=== PATIENT | female | born 1945 | race African-American/Black ===

== ENCOUNTER 2016-08-11 14:49 | Inpatient (IN) | payer MEDICARE, MEDICAID ==
[~2016-08-11] VITALS: Ht 157.5 cm; Wt 87.5 kg
[2016-08-11] MEDS ORDERED: TRAV2.5D OP (15:20)
[2016-08-11] MEDS ORDERED: SAXA5TAB PO (15:20)
[2016-08-11] MEDS ORDERED: AMLODIPINE PO (15:20)
[2016-08-11] MEDS ORDERED: SIMVASTATIN (15:20)
[2016-08-11] MEDS ORDERED: CLONIDINE PATCH (15:20)
[2016-08-11] MEDS ORDERED: MICARDIS (15:20)
[2016-08-11] MEDS ORDERED: GLYB5TAB7 PO (15:20)
[2016-08-11] MEDS ORDERED: ASPIRIN 81MG TABLET PO STA (17:56)
[2016-08-11 18:16] LABS: EOSINOPHILS % 6.1 % (0.0-5.0); HEMATOCRIT. 32.5 % (36.0-48.0); HEMOGLOBIN. 10.4 g/dL (12.0-16.0); LYMPHOCYTES % 23.4 % (20.0-50.0); MEAN CORPUSCULAR HEMOGLOBIN 30.1 pg (28.0-32.0); MEAN CORPUSCULAR HGB CONC 32.1 g/dL (31.0-37.0); MEAN PLATELET VOLUME 8.3 fl (7.4-10.4); MONOCYTES % 11.3 % (2.0-8.0); NEUTROPHILS % 58.2 % (40.0-76.0); PLATELET 215 x1000/uL (130-400); RED BLOOD CELL COUNT 3.46 mill/uL (4.2-5.4); RED CELL DISTRIBUTION WIDTH 15.5 % (11.6-14.6); WHITE BLOOD COUNT 7.6 x1000/uL (4.5-11.0)
[2016-08-11 18:26] LABS: PARTIAL THROMBOPLASTIN TIME 22.8 sec (24.0-34.0); PROTHROMBIN TIME 10.5 sec
[2016-08-11 19:35] LABS: CLARITY URINE CLEAR (CLEAR); COLOR URINE YELLOW (YELLOW); GLUCOSE URINE NEGATIVE (NEGATIVE); KETONES URINE NEGATIVE (NEGATIVE); LEUKOCYTE ESTERASE URINE NEGATIVE (NEGATIVE); NITRITE URINE NEGATIVE (NEGATIVE); OCCULT BLOOD URINE TRACE (NEGATIVE); PROTEIN URINE 3+ (NEGATIVE); SPECIFIC GRAVITY URINE 1.015 (1.005-1.030); UROBILINOGEN URINE 0.2 E.U./dL (0.2-1.0)
[2016-08-11 19:37] LABS: BACTERIA URINE NONE SEEN; CALCIUM PHOSPHATE CRYSTALS UR NONE SEEN /lpf; RBC URINE 0-2 /hpf (0-2); SQUAMOUS EPITHELIAL CELL URINE NONE SEEN /lpf (RARE/1+); WAXY CASTS URINE NONE SEEN /lpf; WBC URINE 0-2 /hpf (0-2); YEAST URINE NONE SEEN
[2016-08-11 20:03] LABS: ALANINE AMINOTRANSFERASE 24 IU/L (13-61); ALBUMIN 3.1 g/dL (3.4-5.0); ANION GAP 11; CALCIUM 8.7 mg/dL (8.5-10.1); CARBON DIOXIDE 27 mEq/L (21-32); CHLORIDE 110 mEq/L (98-107); INDEX HEMOLYSI 1 (1-3); INDEX ICTERIC 1 (1-4); INDEX LIPEMIC 1 (1-3); NT PRO B-TYPE NATRIURETIC PEP 110 pg/mL (5-125); TROPONIN I < 0.02 ng/mL (0.00-0.04); UREA NITROGEN BLOOD 30 mg/dL (7-21); eGFR 39 mL/min (>60)
[2016-08-12] VITALS (7 sets, daily range): BP systolic 129–161; BP diastolic 77–89
[2016-08-12] MEDS ORDERED: TELM1TAB11 PO (01:42)
[2016-08-12] MEDS ORDERED: SIMV40TA5 PO (01:45)
[2016-08-12] MEDS ORDERED: ALLO100T PO (01:48)
[2016-08-12] MEDS ORDERED: DEXTROSE 50% WATER 50ML SYRINGE IV PRN (07:30)
[2016-08-12] MEDS: INSULIN LISPRO 100 UNITS/ML SUBCUT SCH ×4 (07:50→21:00)
[2016-08-12 10:02] LABS: EOSINOPHILS % 7.3 % (0.0-5.0); HEMATOCRIT. 30.2 % (36.0-48.0); HEMOGLOBIN. 9.9 g/dL (12.0-16.0); MEAN CORPUSCULAR HEMOGLOBIN 30.7 pg (28.0-32.0); MEAN CORPUSCULAR HGB CONC 32.8 g/dL (31.0-37.0); MEAN CORPUSCULAR VOLUME 93.7 fL (81.0-99.0); MEAN PLATELET VOLUME 8.6 fl (7.4-10.4); MONOCYTES % 13.8 % (2.0-8.0); NEUTROPHILS % 51.9 % (40.0-76.0); PLATELET 196 x1000/uL (130-400); RED BLOOD CELL COUNT 3.22 mill/uL (4.2-5.4); RED CELL DISTRIBUTION WIDTH 15.2 % (11.6-14.6); WHITE BLOOD COUNT 6.3 x1000/uL (4.5-11.0)
[2016-08-12 10:40] LABS: ALANINE AMINOTRANSFERASE 23 IU/L (13-61); ALBUMIN 2.7 g/dL (3.4-5.0); ANION GAP 10; CALCIUM 8.6 mg/dL (8.5-10.1); CARBON DIOXIDE 23 mEq/L (21-32); CHLORIDE 112 mEq/L (98-107); CREATINE KINASE 334 IU/L (26-192); CREATINE KINASE MB FRACTION 1.1 ng/mL (0.5-3.6); INDEX HEMOLYSI 1 (1-3); INDEX ICTERIC 1 (1-4); INDEX LIPEMIC 1 (1-3); NT PRO B-TYPE NATRIURETIC PEP 94 pg/mL (5-125); UREA NITROGEN BLOOD 25 mg/dL (7-21); eGFR 41 mL/min (>60)
[2016-08-12] MEDS: BLOOD SUGAR DIAGNOSTIC STRIP TEST SCH ×3 (12:20→21:36)
[2016-08-12] MEDS ORDERED: REGADENOSON 0.4 MG/5 ML IV ONE (12:45)
[2016-08-12] MEDS ORDERED: CLONIDINE 0.1MG TABLET PO PRN (16:30)
[2016-08-12] MEDS: ALLOPURINOL 100 MG TABLET PO SCH (17:44)
[2016-08-12] MEDS ORDERED: ATORVASTATIN CALCIUM 10MG TABLET PO SCH (21:00)
[2016-08-12] MEDS: ENOXAPARIN 30MG/0.3ML SYR SUBCUT SCH (21:02)
[2016-08-13] VITALS: BP 142/79
[2016-08-13 04:00] VITALS: BP 150/77
[2016-08-13 06:46] LABS: HEMATOCRIT. 30.6 % (36.0-48.0); HEMOGLOBIN. 9.8 g/dL (12.0-16.0); MEAN CORPUSCULAR HEMOGLOBIN 30.1 pg (28.0-32.0); MEAN CORPUSCULAR HGB CONC 32.1 g/dL (31.0-37.0); MEAN CORPUSCULAR VOLUME 93.7 fL (81.0-99.0); MEAN PLATELET VOLUME 8.7 fl (7.4-10.4); PLATELET 208 x1000/uL (130-400); RED BLOOD CELL COUNT 3.27 mill/uL (4.2-5.4); WHITE BLOOD COUNT 6.2 x1000/uL (4.5-11.0)
[2016-08-13] MEDS: BLOOD SUGAR DIAGNOSTIC STRIP TEST SCH ×4 (06:50→21:46)
[2016-08-13 07:29] LABS: CHLORIDE 110 mEq/L (98-107); INDEX HEMOLYSI 1 (1-3); INDEX ICTERIC 1 (1-4); INDEX LIPEMIC 1 (1-3)
[2016-08-13 07:39] LABS: ALANINE AMINOTRANSFERASE 27 IU/L (13-61); ALBUMIN 2.7 g/dL (3.4-5.0); ANION GAP 12; CALCIUM 8.7 mg/dL (8.5-10.1); CARBON DIOXIDE 23 mEq/L (21-32); NT PRO B-TYPE NATRIURETIC PEP 90 pg/mL (5-125); UREA NITROGEN BLOOD 28 mg/dL (7-21); eGFR 41 mL/min (>60)
[2016-08-13] MEDS: INSULIN LISPRO 100 UNITS/ML SUBCUT SCH ×4 (07:44→21:00)
[2016-08-13 08:00] VITALS: BP 126/73
[2016-08-13 08:35] LABS: DIFFERENTIAL COMMENT 1
[2016-08-13 08:39] LABS: *AMPHETAMINES SCREEN URINE NEGATIVE (NEGATIVE); *BARBITURATES SCREEN URINE NEGATIVE (NEGATIVE); *BENZODIAZEPINES SCREEN URINE NEGATIVE (NEGATIVE); *COCAINE SCREEN URINE NEGATIVE (NEGATIVE); CANNABINOID URINE SCREEN NEGATIVE (NEGATIVE); ECSTASY MDMA SCREEN URINE NEGATIVE (NEGATIVE); METHADONE URINE SCREEN NEGATIVE (NEGATIVE); OPIATES URINE SCREEN NEGATIVE (NEGATIVE); PHENCYCLIDINE URINE SCREEN NEGATIVE (NEGATIVE)
[2016-08-13] MEDS ORDERED: AMLODIPINE 10MG TABLET PO SCH (09:00)
[2016-08-13] MEDS ORDERED: REGADENOSON 0.4 MG/5 ML IV ONE (09:26)
[2016-08-13 09:55] LABS: THYROID STIMULATING HORMONE 2.9 uIU/mL (0.36-3.74)
[2016-08-13] MEDS: DOCUSATE SODIUM 250MG CAPSULE PO SCH (10:48)
[2016-08-13] MEDS: LOSARTAN POTASSIUM 100 MG TABLET PO SCH (10:48)
[2016-08-13] MEDS: HYDROCHLOROTHIAZIDE 25MG TABLET PO SCH (10:49)
[2016-08-13] MEDS: NIFEDIPINE XL 30MG TAB PO SCH (10:49)
[2016-08-13] MEDS: ASPIRIN 81MG EC TABLET PO SCH (10:49)
[2016-08-13] MEDS: ALLOPURINOL 100 MG TABLET PO SCH ×2 (10:49→17:58)
[2016-08-13] MEDS: ENOXAPARIN 30MG/0.3ML SYR SUBCUT SCH ×2 (10:51→22:48)
[2016-08-13] MEDS: SODIUM CHL 0.45% + KCL 20MEQ/L 1,000 ML IV SCH ×2 (11:59→22:46)
[2016-08-13 12:00] VITALS: BP 140/79
[2016-08-13 16:00] VITALS: BP 123/75
[2016-08-13] MEDS: OMEPRAZOLE 20MG CAPSULE EXTENDED RELEASE PO SCH (16:15)
[2016-08-13 17:06] LABS: PLATELET ESTIMATE NORMAL
[2016-08-13 20:00] VITALS: BP 122/75
[2016-08-13] MEDS: ATORVASTATIN CALCIUM 10MG TABLET PO SCH (22:47)
[2016-08-14] VITALS: BP 117/64
[2016-08-14 04:00] VITALS: BP 109/67
[2016-08-14 05:58] LABS: CALCIUM 8.6 mg/dL (8.5-10.1)
[2016-08-14 06:35] LABS: BASOPHILS % 0.7 % (0.0-2.0); EOSINOPHILS % 6.5 % (0.0-5.0); HEMATOCRIT. 31.1 % (36.0-48.0); HEMOGLOBIN. 9.7 g/dL (12.0-16.0); LYMPHOCYTES % 35.4 % (20.0-50.0); MEAN CORPUSCULAR HEMOGLOBIN 30.1 pg (28.0-32.0); MEAN CORPUSCULAR VOLUME 97.1 fL (81.0-99.0); MEAN PLATELET VOLUME 8.5 fl (7.4-10.4); MONOCYTES % 12.1 % (2.0-8.0); NEUTROPHILS % 45.3 % (40.0-76.0); PLATELET 195 x1000/uL (130-400); RED CELL DISTRIBUTION WIDTH 15.5 % (11.6-14.6)
[2016-08-14] MEDS: SODIUM CHL 0.45% + KCL 20MEQ/L 1,000 ML IV SCH ×3 (07:00→16:56)
[2016-08-14] MEDS: BLOOD SUGAR DIAGNOSTIC STRIP TEST SCH ×4 (07:20→21:00)
[2016-08-14 07:58] VITALS: BP 138/83
[2016-08-14] MEDS: OMEPRAZOLE 20MG CAPSULE EXTENDED RELEASE PO SCH (08:46)
[2016-08-14] MEDS: LOSARTAN POTASSIUM 100 MG TABLET PO SCH (08:47)
[2016-08-14] MEDS: ASPIRIN 81MG EC TABLET PO SCH (08:48)
[2016-08-14] MEDS: HYDROCHLOROTHIAZIDE 25MG TABLET PO SCH (08:50)
[2016-08-14] MEDS: ALLOPURINOL 100 MG TABLET PO SCH ×2 (08:50→16:26)
[2016-08-14] MEDS: NIFEDIPINE XL 30MG TAB PO SCH (08:50)
[2016-08-14] MEDS: ENOXAPARIN 30MG/0.3ML SYR SUBCUT SCH ×2 (08:51→22:39)
[2016-08-14] MEDS: MAGNESIUM/ALUMINUM HYDROXIDE/SIMETHICONE 30ML UDC PO PRN (08:52)
[2016-08-14] MEDS: DOCUSATE SODIUM 250MG CAPSULE PO SCH (08:59)
[2016-08-14 12:02] VITALS: BP 123/76
[2016-08-14] MEDS: INSULIN LISPRO 100 UNITS/ML SUBCUT SCH ×3 (13:42→22:09)
[2016-08-14 16:12] VITALS: BP 130/79
[2016-08-14 20:00] VITALS: BP 120/68
[2016-08-14] MEDS: ATORVASTATIN CALCIUM 10MG TABLET PO SCH (22:37)
[2016-08-15] VITALS: BP 137/69
[2016-08-15] MEDS: SODIUM CHL 0.45% + KCL 20MEQ/L 1,000 ML IV SCH (01:09)
[2016-08-15 04:00] VITALS: BP 136/75
[2016-08-15 06:00] LABS: BASOPHILS % 0.7 % (0.0-2.0); EOSINOPHILS % 7.1 % (0.0-5.0); HEMATOCRIT. 28.6 % (36.0-48.0); HEMOGLOBIN. 9.2 g/dL (12.0-16.0); MEAN CORPUSCULAR HEMOGLOBIN 30.1 pg (28.0-32.0); MEAN CORPUSCULAR HGB CONC 32.2 g/dL (31.0-37.0); MEAN CORPUSCULAR VOLUME 93.4 fL (81.0-99.0); MEAN PLATELET VOLUME 8.5 fl (7.4-10.4); MONOCYTES % 12.2 % (2.0-8.0); PLATELET 204 x1000/uL (130-400); RED BLOOD CELL COUNT 3.06 mill/uL (4.2-5.4); WHITE BLOOD COUNT 6.6 x1000/uL (4.5-11.0)
[2016-08-15] MEDS: OMEPRAZOLE 20MG CAPSULE EXTENDED RELEASE PO SCH (06:14)
[2016-08-15] MEDS: BLOOD SUGAR DIAGNOSTIC STRIP TEST SCH ×2 (06:14→11:51)
[2016-08-15 06:30] LABS: CALCIUM 8.3 mg/dL (8.5-10.1)
[2016-08-15 08:05] VITALS: BP 126/76
[2016-08-15] MEDS: ASPIRIN 81MG EC TABLET PO SCH (08:35)
[2016-08-15] MEDS: ENOXAPARIN 30MG/0.3ML SYR SUBCUT SCH (08:35)
[2016-08-15] MEDS: ALLOPURINOL 100 MG TABLET PO SCH (08:36)
[2016-08-15] MEDS: LOSARTAN POTASSIUM 100 MG TABLET PO SCH (08:36)
[2016-08-15] MEDS: NIFEDIPINE XL 30MG TAB PO SCH (08:36)
[2016-08-15] MEDS: DOCUSATE SODIUM 250MG CAPSULE PO SCH ×2 (08:36→08:39)
[2016-08-15] MEDS: HYDROCHLOROTHIAZIDE 25MG TABLET PO SCH (08:36)
[2016-08-15 09:37] VITALS: BP 126/76
[2016-08-15] MEDS: MAGNESIUM/ALUMINUM HYDROXIDE/SIMETHICONE 30ML UDC PO PRN (11:48)
[2016-08-15 12:05] VITALS: BP 122/74
== END 2016-08-15 12:25 | disposition home or self-care (01) | DRG 391 ==
LOC: ER 15:20 → 6WST 20:34
PROVIDERS: ADMIT Internal Medicine Geriatric Medicine; ATTEND Internal Medicine Geriatric Medicine
DX: K21.9 Gastro-esophageal reflux disease without esophagitis (principal); N17.0 Acute kidney failure with tubular necrosis; D63.8 Anemia in other chronic diseases classified elsewhere; E11.22 Type 2 diabetes mellitus with diabetic chronic kidney disease; E78.00 Pure hypercholesterolemia, unspecified; E78.1 Pure hyperglyceridemia; G89.29 Other chronic pain; I45.10 Unspecified right bundle-branch block; I13.10 Hypertensive heart and chronic kidney disease without heart failure, with stage 1 through stage 4 chronic kidney disease, or unspecified chronic kidney disease; K29.70 Gastritis, unspecified, without bleeding; H91.90 Unspecified hearing loss, unspecified ear; M10.9 Gout, unspecified; E66.9 Obesity, unspecified; K59.09 Other constipation; M48.00 Spinal stenosis, site unspecified; N18.9 Chronic kidney disease, unspecified; Z82.49 Family history of ischemic heart disease and other diseases of the circulatory system; Z85.3 Personal history of malignant neoplasm of breast; Z88.6 Allergy status to analgesic agent; Z88.8 Allergy status to other drugs, medicaments and biological substances; Z90.49 Acquired absence of other specified parts of digestive tract; Z90.710 Acquired absence of both cervix and uterus; Z68.35 Body mass index [BMI] 35.0-35.9, adult; Z88.5 Allergy status to narcotic agent
CPT/HCPCS: 36415; 71010; 76770; 78452; 80048; 80053; 80061; 80305; 81001; 82550; 82553; 82962; 83036; 83540; 83550; 83880; 84443; 84484; 85025; 85610; 85730; 93005; 93017; 93970; 97162; 99285; A9500; J1650; J1815; J2785; J3480

== ENCOUNTER → 2017-09-11 | Outpatient (CLI) | payer MEDICARE, MEDICAID ==
[~2017-09-11] MED LIST: ALLO100T PO; AMLODIPINE PO; CLONIDINE PATCH; GLYB5TAB7 PO; SAXA5TAB PO; SIMV40TA5 PO; TELM1TAB11 PO; TRAV2.5D OP
== END | disposition home or self-care (01) ==
LOC: NM 07:22
PROVIDERS: ATTEND Internal Medicine Geriatric Medicine
DX: M89.9 Disorder of bone, unspecified (principal); E11.22 Type 2 diabetes mellitus with diabetic chronic kidney disease; N18.9 Chronic kidney disease, unspecified
CPT/HCPCS: 78306; A9503

== ENCOUNTER → 2018-06-15 | Outpatient (CLI) | payer MEDICARE, MEDICAID ==
[~2018-06-15] MED LIST changes: +AZOPT EACHEYE; +BRIM10DR2 OP; +BROM3DRO OP; +BROM5DRO3 EACHEYE; +REGADENOSON 0.4 MG/5 ML IV ONE; -TELM1TAB11 PO
== END | disposition home or self-care (01) ==
LOC: NM 06:36
PROVIDERS: ATTEND Internal Medicine Geriatric Medicine
DX: I10 Essential (primary) hypertension (principal); I20.9 Angina pectoris, unspecified; R06.00 Dyspnea, unspecified
CPT/HCPCS: 78452; 93017; A9500; J2785; C1893

== ENCOUNTER 2019-03-18 18:28 | Inpatient (IN) | payer MEDICARE, MEDICAID ==
[~2019-03-18] VITALS: Ht 157.5 cm; Wt 84.8 kg
[~2019-03-18 18:28] MED LIST changes: -REGADENOSON 0.4 MG/5 ML IV ONE
[2019-03-18 19:08] LABS: BASOPHILS % 0.6 % (0.0-2.0); HEMATOCRIT. 40.5 % (36.0-48.0); HEMOGLOBIN. 12.6 g/dL (12.0-16.0); MEAN CORPUSCULAR HEMOGLOBIN 29.2 pg (28.0-32.0); MEAN CORPUSCULAR VOLUME 93.6 fL (81.0-99.0); MEAN PLATELET VOLUME 7.8 fl (7.4-10.4); MONOCYTES % 14.8 % (2.0-8.0); NEUTROPHILS % 56.6 % (40.0-76.0); PLATELET 227 x1000/uL (130-400); RED BLOOD CELL COUNT 4.33 mill/uL (4.2-5.4); RED CELL DISTRIBUTION WIDTH 19.5 % (11.6-14.6)
[2019-03-18 19:13] LABS: CHLORIDE 112 mEq/L (98-107)
[2019-03-18 19:14] LABS: PROTHROMBIN TIME 10.1 sec (9.6-11.0)
[2019-03-18 19:19] LABS: ETHANOL BLOOD < 10 mg/dL
[2019-03-18 19:22] LABS: LDL CHOLESTEROL 90 mg/dL (5-100)
[2019-03-18] MEDS ORDERED: ASPIRIN 81MG TABLET PO ONE (19:45)
[2019-03-18 20:30] LABS: CLARITY URINE CLEAR (CLEAR); COLOR URINE YELLOW (YELLOW); KETONES URINE NEGATIVE (NEGATIVE); LEUKOCYTE ESTERASE URINE NEGATIVE (NEGATIVE); NITRITE URINE NEGATIVE (NEGATIVE); OCCULT BLOOD URINE 2+ (NEGATIVE); PROTEIN URINE 4+ (NEGATIVE); SPECIFIC GRAVITY URINE 1.011 (1.005-1.030); UROBILINOGEN URINE 0.2 E.U./dL (0.2-1.0)
[2019-03-18 20:34] LABS: *AMPHETAMINES SCREEN URINE NEGATIVE (NEGATIVE); *BARBITURATES SCREEN URINE NEGATIVE (NEGATIVE); *BENZODIAZEPINES SCREEN URINE NEGATIVE (NEGATIVE)
[2019-03-18 20:36] LABS: *COCAINE SCREEN URINE NEGATIVE (NEGATIVE); CANNABINOID URINE SCREEN NEGATIVE (NEGATIVE); METHADONE URINE SCREEN NEGATIVE (NEGATIVE); OPIATES URINE SCREEN NEGATIVE (NEGATIVE); PHENCYCLIDINE URINE SCREEN NEGATIVE (NEGATIVE)
[2019-03-18 22:30] VITALS: BP 149/77
[2019-03-18 23:13] VITALS: BP 149/77
[2019-03-19] VITALS (12 sets, daily range): BP systolic 121–171; BP diastolic 59–90
[2019-03-19] MEDS ORDERED: NON FORMULARY PATIENT HOME MED PO SCH (09:00)
[2019-03-19] MEDS: ASPIRIN 325MG EC TABLET PO SCH (09:35)
[2019-03-19] MEDS: ALLOPURINOL 100 MG TABLET PO SCH ×2 (09:35→17:00)
[2019-03-19] MEDS: ENOXAPARIN 30MG/0.3ML SYR SUBCUT SCH (09:36)
[2019-03-19] MEDS ORDERED: CEFTRIAXONE 1 G PREMIX 50 ML IV SCH (10:00)
[2019-03-19] MEDS: CEFTRIAXONE 1,000 MG in DEXTROSE 5% WATER 50 ML IV SCH (11:24)
[2019-03-19] MEDS: AMLODIPINE 10MG TABLET PO SCH (16:48)
[2019-03-19] MEDS: NEBIVOLOL HCL 5 MG TABLET PO SCH (17:00)
[2019-03-19] MEDS: BLOOD SUGAR DIAGNOSTIC STRIP TEST SCH (21:30)
[2019-03-19] MEDS: INSULIN LISPRO 100 UNITS/ML SUBCUT SCH (21:30)
[2019-03-19] MEDS ORDERED: DEXTROSE 50% WATER 50ML SYRINGE IV PRN (21:30)
[2019-03-19] MEDS: GABAPENTIN 100MG CAPSULE PO SCH (21:52)
[2019-03-19] MEDS: ATORVASTATIN CALCIUM 20MG TABLET PO SCH (21:52)
[2019-03-19] MEDS: ANASTROZOLE 1 MG TABLET PO SCH (23:07)
[2019-03-20] VITALS (15 sets, daily range): BP systolic 119–172; BP diastolic 68–91
[2019-03-20] MEDS: ACETAMINOPHEN 325MG TABLET PO PRN ×2 (00:18→13:37)
[2019-03-20] MEDS ORDERED: AMLO10TA80 PO (02:45)
[2019-03-20] MEDS ORDERED: CLON1PAT11 TP (02:50)
[2019-03-20] MEDS ORDERED: METO5TAB69 PO (02:51)
[2019-03-20] MEDS ORDERED: GABA-529 PO (02:52)
[2019-03-20] MEDS ORDERED: LINA5TAB PO (02:53)
[2019-03-20] MEDS ORDERED: ANAS1TAB7 PO (02:53)
[2019-03-20] MEDS ORDERED: NEBI10TA2 PO (02:54)
[2019-03-20] MEDS: CLONIDINE 0.1MG TABLET PO PRN ×2 (03:43→13:34)
[2019-03-20] MEDS: BLOOD SUGAR DIAGNOSTIC STRIP TEST SCH ×4 (06:36→20:11)
[2019-03-20] MEDS: INSULIN LISPRO 100 UNITS/ML SUBCUT SCH ×4 (07:20→20:16)
[2019-03-20] MEDS: LINAGLIPTIN 5MG TABLET PO SCH (09:16)
[2019-03-20] MEDS: AMLODIPINE 10MG TABLET PO SCH (09:16)
[2019-03-20] MEDS: ALLOPURINOL 100 MG TABLET PO SCH ×2 (09:16→17:20)
[2019-03-20] MEDS: GABAPENTIN 100MG CAPSULE PO SCH (09:16)
[2019-03-20] MEDS: ASPIRIN 325MG EC TABLET PO SCH (09:16)
[2019-03-20] MEDS: ENOXAPARIN 30MG/0.3ML SYR SUBCUT SCH (09:17)
[2019-03-20] MEDS: ANASTROZOLE 1 MG TABLET PO SCH ×2 (09:34→13:37)
[2019-03-20 09:39] LABS: BASOPHILS % 0.8 % (0.0-2.0); EOSINOPHILS % 7.8 % (0.0-5.0); HEMATOCRIT. 40.2 % (36.0-48.0); HEMOGLOBIN. 12.5 g/dL (12.0-16.0); LYMPHOCYTES % 15.6 % (20.0-50.0); MEAN CORPUSCULAR HEMOGLOBIN 29.6 pg (28.0-32.0); MEAN CORPUSCULAR VOLUME 94.8 fL (81.0-99.0); MEAN PLATELET VOLUME 7.1 fl (7.4-10.4); MONOCYTES % 12.6 % (2.0-8.0); NEUTROPHILS % 63.2 % (40.0-76.0); PLATELET 206 x1000/uL (130-400); RED BLOOD CELL COUNT 4.23 mill/uL (4.2-5.4); RED CELL DISTRIBUTION WIDTH 19.8 % (11.6-14.6)
[2019-03-20] MEDS: CEFTRIAXONE 1,000 MG in DEXTROSE 5% WATER 50 ML IV SCH (11:35)
[2019-03-20] MEDS: NEBIVOLOL HCL 5 MG TABLET PO SCH (17:21)
[2019-03-20] MEDS: ATORVASTATIN CALCIUM 20MG TABLET PO SCH (20:11)
[2019-03-21] VITALS (7 sets, daily range): BP systolic 124–164; BP diastolic 58–84
[2019-03-21] MEDS: CLONIDINE 0.1MG TABLET PO PRN (00:47)
[2019-03-21 06:37] LABS: HEMATOCRIT. 35.6 % (36.0-48.0); HEMOGLOBIN. 11.2 g/dL (12.0-16.0); MEAN CORPUSCULAR HEMOGLOBIN 29.6 pg (28.0-32.0); MEAN CORPUSCULAR VOLUME 93.8 fL (81.0-99.0); MEAN PLATELET VOLUME 7.2 fl (7.4-10.4); PLATELET 194 x1000/uL (130-400); RED BLOOD CELL COUNT 3.79 mill/uL (4.2-5.4); RED CELL DISTRIBUTION WIDTH 19.3 % (11.6-14.6)
[2019-03-21] MEDS: BLOOD SUGAR DIAGNOSTIC STRIP TEST SCH ×4 (06:42→21:39)
[2019-03-21] MEDS: INSULIN LISPRO 100 UNITS/ML SUBCUT SCH ×4 (07:20→21:00)
[2019-03-21] MEDS: ANASTROZOLE 1 MG TABLET PO SCH (09:00)
[2019-03-21 09:17] LABS: PLATELET ESTIMATE NORMAL
[2019-03-21] MEDS: GABAPENTIN 100MG CAPSULE PO SCH (09:53)
[2019-03-21] MEDS: ASPIRIN 325MG EC TABLET PO SCH (09:53)
[2019-03-21] MEDS: LINAGLIPTIN 5MG TABLET PO SCH (09:53)
[2019-03-21] MEDS: AMLODIPINE 10MG TABLET PO SCH (09:53)
[2019-03-21] MEDS: ALLOPURINOL 100 MG TABLET PO SCH ×2 (09:53→17:00)
[2019-03-21] MEDS: ENOXAPARIN 30MG/0.3ML SYR SUBCUT SCH (09:53)
[2019-03-21] MEDS: CEFTRIAXONE 1,000 MG in DEXTROSE 5% WATER 50 ML IV SCH (11:00)
[2019-03-21] MEDS: NEBIVOLOL HCL 5 MG TABLET PO SCH (17:00)
[2019-03-21] MEDS ORDERED: ATORVASTATIN CALCIUM 10MG TABLET PO SCH (21:00)
[2019-03-22] VITALS (9 sets, daily range): BP systolic 124–182; BP diastolic 62–89
[2019-03-22] MEDS: CLONIDINE 0.1MG TABLET PO PRN (02:18)
[2019-03-22] MEDS: BLOOD SUGAR DIAGNOSTIC STRIP TEST SCH ×3 (06:14→16:50)
[2019-03-22] MEDS: INSULIN LISPRO 100 UNITS/ML SUBCUT SCH ×3 (06:15→17:20)
[2019-03-22 08:56] LABS: BASOPHILS % 0.9 % (0.0-2.0); EOSINOPHILS % 9.2 % (0.0-5.0); HEMATOCRIT. 37.7 % (36.0-48.0); LYMPHOCYTES % 14.2 % (20.0-50.0); MEAN CORPUSCULAR HEMOGLOBIN 29.6 pg (28.0-32.0); MEAN CORPUSCULAR VOLUME 93.4 fL (81.0-99.0); MEAN PLATELET VOLUME 7.8 fl (7.4-10.4); MONOCYTES % 11.2 % (2.0-8.0); NEUTROPHILS % 64.5 % (40.0-76.0); PLATELET 218 x1000/uL (130-400); RED BLOOD CELL COUNT 4.04 mill/uL (4.2-5.4); RED CELL DISTRIBUTION WIDTH 19.5 % (11.6-14.6)
[2019-03-22 09:08] LABS: PHOSPHORUS 5.9 mg/dL (2.5-4.9)
[2019-03-22] MEDS: GABAPENTIN 100MG CAPSULE PO SCH (09:24)
[2019-03-22] MEDS: LINAGLIPTIN 5MG TABLET PO SCH (09:24)
[2019-03-22] MEDS: AMLODIPINE 10MG TABLET PO SCH (09:25)
[2019-03-22] MEDS: ASPIRIN 325MG EC TABLET PO SCH (09:25)
[2019-03-22] MEDS: ENOXAPARIN 30MG/0.3ML SYR SUBCUT SCH (09:25)
[2019-03-22] MEDS: ANASTROZOLE 1 MG TABLET PO SCH (09:25)
[2019-03-22] MEDS: ALLOPURINOL 100 MG TABLET PO SCH ×2 (09:25→17:00)
[2019-03-22] MEDS: CEFTRIAXONE 1,000 MG in DEXTROSE 5% WATER 50 ML IV SCH (11:00)
[2019-03-22] MEDS: NEBIVOLOL HCL 5 MG TABLET PO SCH (17:00)
[2019-03-23] MEDS ORDERED: CEFTRIAXONE 1 G PREMIX 50 ML IV SCH (11:00)
== END 2019-03-22 18:22 | disposition home or self-care (01) | DRG 69 ==
LOC: ER 18:28 → 3WST 20:16 → EDBEDREQ 20:20 → EDBEDREQTM 20:20 → ENRESERV 21:01
PROVIDERS: ADMIT Internal Medicine Geriatric Medicine; ATTEND Internal Medicine Geriatric Medicine
DX: G45.9 Transient cerebral ischemic attack, unspecified (principal); N17.9 Acute kidney failure, unspecified; N39.0 Urinary tract infection, site not specified; N18.4 Chronic kidney disease, stage 4 (severe); N04.9 Nephrotic syndrome with unspecified morphologic changes; M10.9 Gout, unspecified; J44.9 Chronic obstructive pulmonary disease, unspecified; R07.89 Other chest pain; I89.0 Lymphedema, not elsewhere classified; R44.1 Visual hallucinations; R29.818 Other symptoms and signs involving the nervous system; I87.2 Venous insufficiency (chronic) (peripheral); E11.21 Type 2 diabetes mellitus with diabetic nephropathy; E11.51 Type 2 diabetes mellitus with diabetic peripheral angiopathy without gangrene; D63.1 Anemia in chronic kidney disease; E78.00 Pure hypercholesterolemia, unspecified; I66.21 Occlusion and stenosis of right posterior cerebral artery; I13.10 Hypertensive heart and chronic kidney disease without heart failure, with stage 1 through stage 4 chronic kidney disease, or unspecified chronic kidney disease; C50.912 Malignant neoplasm of unspecified site of left female breast; E11.22 Type 2 diabetes mellitus with diabetic chronic kidney disease; E78.5 Hyperlipidemia, unspecified; Z90.710 Acquired absence of both cervix and uterus; Z90.49 Acquired absence of other specified parts of digestive tract; Z83.3 Family history of diabetes mellitus; Z79.899 Other long term (current) drug therapy; Z79.811 Long term (current) use of aromatase inhibitors; Z79.84 Long term (current) use of oral hypoglycemic drugs; Z88.5 Allergy status to narcotic agent; Z88.6 Allergy status to analgesic agent
CPT/HCPCS: 36415; 70544; 70553; 71045; 76770; 80048; 80061; 80305; 80320; 81003; 82962; 83036; 83721; 83880; 83970; 84100; 84443; 84484; 93005; 93306; 93880; 93970; 95816; 96365; 97162; 99291; J0696; J1650; J1815; J7060; G0480

== ENCOUNTER 2019-03-25 17:08 | Emergency (ER) | payer MEDICARE, MEDICAID ==
[~2019-03-25] VITALS: Ht 157.5 cm; Wt 84.0 kg
[~2019-03-25 17:08] MED LIST changes: +AMLO10TA80 PO; -AMLODIPINE PO; +ANAS1TAB7 PO; +CLON1PAT11 TP; -CLONIDINE PATCH; +GABA-529 PO; +LINA5TAB PO; +METO5TAB69 PO; +NEBI10TA2 PO
[2019-03-25 19:39] VITALS: BP 173/83
== END 2019-03-25 20:21 | disposition home or self-care (01) ==
LOC: ER 17:26
DX: R20.2 Paresthesia of skin (principal); R53.1 Weakness; R47.81 Slurred speech; E11.9 Type 2 diabetes mellitus without complications; I10 Essential (primary) hypertension; Z86.73 Personal history of transient ischemic attack (TIA), and cerebral infarction without residual deficits; Z87.19 Personal history of other diseases of the digestive system; Z90.49 Acquired absence of other specified parts of digestive tract; Z98.890 Other specified postprocedural states; Z79.899 Other long term (current) drug therapy; Z88.6 Allergy status to analgesic agent; Z88.5 Allergy status to narcotic agent
CPT/HCPCS: 82962; 99283

== ENCOUNTER 2019-04-08 16:40 | Inpatient (IN) | payer MEDICARE, MEDICAID ==
[~2019-04-08] VITALS: Ht 157.5 cm; Wt 81.8 kg
[2019-04-08 18:11] LABS: BASOPHILS % 0.9 % (0.0-2.0); EOSINOPHILS % 5.2 % (0.0-5.0); HEMATOCRIT. 36.6 % (36.0-48.0); HEMOGLOBIN. 11.7 g/dL (12.0-16.0); LYMPHOCYTES % 16.8 % (20.0-50.0); MEAN CORPUSCULAR HEMOGLOBIN 28.9 pg (28.0-32.0); MEAN CORPUSCULAR VOLUME 90.6 fL (81.0-99.0); MEAN PLATELET VOLUME 7.5 fl (7.4-10.4); MONOCYTES % 10.4 % (2.0-8.0); NEUTROPHILS % 66.7 % (40.0-76.0); PLATELET 186 x1000/uL (130-400); RED BLOOD CELL COUNT 4.04 mill/uL (4.2-5.4); RED CELL DISTRIBUTION WIDTH 17.3 % (11.6-14.6)
[2019-04-08 18:17] LABS: CHLORIDE 109 mEq/L (98-107); PROTHROMBIN TIME 10.3 sec (9.6-11.0)
[2019-04-08] MEDS ORDERED: ASPIRIN 325MG TABLET PO ONE (19:30)
[2019-04-08 22:30] VITALS: BP 180/84
[2019-04-08] MEDS ORDERED: MAGNESIUM/ALUMINUM HYDROXIDE/SIMETHICONE 30ML UDC PO PRN (23:45)
[2019-04-08] MEDS ORDERED: ONDANSETRON HCL 4MG/2ML INJ IV PRN (23:45)
[2019-04-08] MEDS ORDERED: DOCUSATE SODIUM 100MG CAPSULE PO PRN (23:45)
[2019-04-08] MEDS ORDERED: DIPHENHYDRAMINE 50MG/ML VIAL IV PRN (23:45)
[2019-04-08] MEDS ORDERED: GUAIFENESIN 200MG/10ML SUGAR FREE UDC PO PRN (23:45)
[2019-04-08] MEDS ORDERED: MORPHINE SULFATE 2 MG/ML CPJ (NOT FOR IM USE) IV PRN (23:45)
[2019-04-08] MEDS ORDERED: DEXTROSE 50% WATER 50ML SYRINGE IV PRN (23:45)
[2019-04-08] MEDS ORDERED: IPRATROPIUM/ALBUTEROL 0.5-3(2.5)MG/3ML NEB HHN PRN (23:45)
[2019-04-08] MEDS ORDERED: NA PHOS,M-B/NA PHOS,DI-BA ENEMA 118ML PR PRN (23:45)
[2019-04-08] MEDS ORDERED: LORAZEPAM 2MG/ML CPJ IV PRN (23:45)
[2019-04-09] VITALS: BP 180/84
[2019-04-09] MEDS ORDERED: DEXTROSE 50% WATER 50ML SYRINGE IV PRN ×2 (00:15)
[2019-04-09] MEDS: CLONIDINE 0.1MG TABLET PO PRN (00:34)
[2019-04-09 04:00] VITALS: BP 166/75
[2019-04-09 06:31] LABS: EOSINOPHILS % 3.4 % (0.0-5.0); HEMATOCRIT. 31.8 % (36.0-48.0); HEMOGLOBIN. 10.5 g/dL (12.0-16.0); LYMPHOCYTES % 17.2 % (20.0-50.0); MEAN CORPUSCULAR HEMOGLOBIN 29.5 pg (28.0-32.0); MEAN CORPUSCULAR VOLUME 89.6 fL (81.0-99.0); MEAN PLATELET VOLUME 7.9 fl (7.4-10.4); MONOCYTES % 13.5 % (2.0-8.0); NEUTROPHILS % 64.9 % (40.0-76.0); PLATELET 186 x1000/uL (130-400); RED BLOOD CELL COUNT 3.54 mill/uL (4.2-5.4); RED CELL DISTRIBUTION WIDTH 17.5 % (11.6-14.6)
[2019-04-09 07:02] LABS: CHLORIDE 112 mEq/L (98-107)
[2019-04-09 07:19] LABS: LDL CHOLESTEROL 62 mg/dL (5-100)
[2019-04-09 07:20] LABS: CREATINE KINASE 781 IU/L (26-192); HDL CHOLESTEROL 51 mg/dL (40-59)
[2019-04-09 07:22] LABS: CREATINE KINASE MB FRACTION 2.2 ng/mL (0.5-3.6)
[2019-04-09] MEDS ORDERED: BLOOD SUGAR DIAGNOSTIC STRIP TEST SCH (07:40)
[2019-04-09 08:00] VITALS: BP 171/81
[2019-04-09] MEDS: INSULIN LISPRO 100 UNITS/ML SUBCUT SCH ×4 (08:10→21:00)
[2019-04-09] MEDS ORDERED: INSULIN LISPRO 100 UNITS/ML SUBCUT SCH (08:10)
[2019-04-09] MEDS: BLOOD SUGAR DIAGNOSTIC STRIP TEST SCH ×4 (08:26→21:00)
[2019-04-09] MEDS: ENOXAPARIN 30MG/0.3ML SYR SUBCUT SCH (09:03)
[2019-04-09] MEDS: HYDRALAZINE 20MG/ML VIAL IV PRN (09:03)
[2019-04-09 12:00] VITALS: BP 115/64
[2019-04-09] MEDS: SODIUM CHLORIDE 0.9% INJ 3ML FLUSH IVF SCH (13:43)
[2019-04-09 16:00] VITALS: BP 120/79
[2019-04-09 16:00] LABS: CREATINE KINASE 593 IU/L (26-192)
[2019-04-09 16:01] LABS: CREATINE KINASE MB FRACTION 1.7 ng/mL (0.5-3.6)
[2019-04-09 20:00] VITALS: BP 154/72
[2019-04-09 22:21] LABS: CLARITY URINE CLEAR (CLEAR); COLOR URINE YELLOW (YELLOW); KETONES URINE NEGATIVE (NEGATIVE); LEUKOCYTE ESTERASE URINE NEGATIVE (NEGATIVE); NITRITE URINE NEGATIVE (NEGATIVE); OCCULT BLOOD URINE 1+ (NEGATIVE); PH URINE 6.5 (4.5-8.0); PROTEIN URINE 3+ (NEGATIVE); SPECIFIC GRAVITY URINE 1.011 (1.005-1.030); UROBILINOGEN URINE 0.2 E.U./dL (0.2-1.0)
[2019-04-10] VITALS: BP 148/69
[2019-04-10 04:00] VITALS: BP 180/83
[2019-04-10] MEDS: CLONIDINE 0.1MG TABLET PO PRN ×2 (05:44→17:51)
[2019-04-10 06:59] LABS: BASOPHILS % 0.9 % (0.0-2.0); HEMATOCRIT. 33.2 % (36.0-48.0); HEMOGLOBIN. 10.7 g/dL (12.0-16.0); LYMPHOCYTES % 19.7 % (20.0-50.0); MEAN CORPUSCULAR VOLUME 90.5 fL (81.0-99.0); MEAN PLATELET VOLUME 8.7 fl (7.4-10.4); MONOCYTES % 14.1 % (2.0-8.0); NEUTROPHILS % 59.3 % (40.0-76.0); PLATELET 189 x1000/uL (130-400); RED BLOOD CELL COUNT 3.67 mill/uL (4.2-5.4); RED CELL DISTRIBUTION WIDTH 16.9 % (11.6-14.6)
[2019-04-10 07:10] LABS: PHOSPHORUS 5.5 mg/dL (2.5-4.9)
[2019-04-10 08:00] VITALS: BP 170/78
[2019-04-10] MEDS: INSULIN LISPRO 100 UNITS/ML SUBCUT SCH ×4 (08:10→21:00)
[2019-04-10] MEDS: BLOOD SUGAR DIAGNOSTIC STRIP TEST SCH ×4 (08:12→21:00)
[2019-04-10] MEDS: ENOXAPARIN 30MG/0.3ML SYR SUBCUT SCH (08:31)
[2019-04-10] MEDS: HYDRALAZINE 20MG/ML VIAL IV PRN (08:32)
[2019-04-10] MEDS: DIVALPROEX SODIUM 500MG ER TABLET PO SCH ×2 (08:32→17:00)
[2019-04-10 11:50] VITALS: BP 161/71
[2019-04-10] MEDS: SEVELAMER CARBONATE 800 MG TABLET PO SCH ×2 (12:55→17:50)
[2019-04-10] MEDS: AMLODIPINE 10MG TABLET PO SCH (12:55)
[2019-04-10] MEDS: NEBIVOLOL HCL 5 MG TABLET PO SCH (12:56)
[2019-04-10] MEDS: SODIUM CHLORIDE 0.9% INJ 3ML FLUSH IVF SCH ×2 (12:56→22:00)
[2019-04-10 16:00] VITALS: BP 161/70
[2019-04-10 20:46] VITALS: BP 155/74
[2019-04-11 00:08] VITALS: BP 157/77
[2019-04-11 04:00] VITALS: BP 141/69
[2019-04-11] MEDS: SODIUM CHLORIDE 0.9% INJ 3ML FLUSH IVF SCH ×2 (06:00→14:00)
[2019-04-11 06:32] LABS: EOSINOPHILS % 7.6 % (0.0-5.0); HEMATOCRIT. 33.7 % (36.0-48.0); HEMOGLOBIN. 10.9 g/dL (12.0-16.0); LYMPHOCYTES % 21.3 % (20.0-50.0); MEAN CORPUSCULAR HEMOGLOBIN 29.4 pg (28.0-32.0); MEAN CORPUSCULAR VOLUME 90.8 fL (81.0-99.0); MONOCYTES % 14.3 % (2.0-8.0); NEUTROPHILS % 55.8 % (40.0-76.0); PLATELET 182 x1000/uL (130-400); RED BLOOD CELL COUNT 3.71 mill/uL (4.2-5.4); RED CELL DISTRIBUTION WIDTH 17.1 % (11.6-14.6)
[2019-04-11 08:00] VITALS: BP 162/77
[2019-04-11] MEDS: INSULIN LISPRO 100 UNITS/ML SUBCUT SCH ×2 (08:10→13:10)
[2019-04-11] MEDS: BLOOD SUGAR DIAGNOSTIC STRIP TEST SCH ×3 (08:30→17:50)
[2019-04-11] MEDS: SEVELAMER CARBONATE 800 MG TABLET PO SCH ×2 (08:56→15:45)
[2019-04-11] MEDS ORDERED: ANASTROZOLE 1 MG TABLET PO SCH (09:00)
[2019-04-11] MEDS: DIVALPROEX SODIUM 500MG ER TABLET PO SCH ×2 (09:00→17:00)
[2019-04-11] MEDS ORDERED: HYDRALAZINE HCL 50MG TABLET PO SCH (09:00)
[2019-04-11] MEDS ORDERED: SODIUM CHLORIDE 0.45% 1,000 ML IV SCH (09:00)
[2019-04-11] MEDS: ENOXAPARIN 30MG/0.3ML SYR SUBCUT SCH (09:01)
[2019-04-11] MEDS: AMLODIPINE 10MG TABLET PO SCH (09:42)
[2019-04-11] MEDS: NEBIVOLOL HCL 5 MG TABLET PO SCH (09:42)
[2019-04-11 12:00] VITALS: BP 139/64
[2019-04-11 16:00] VITALS: BP 141/71
[2019-04-11 16:49] VITALS: BP 141/71
== END 2019-04-11 17:56 | disposition home health service (06) | DRG 682 ==
LOC: ER 16:40 → 7WST 19:56 → EDBEDREQTM 19:56 → EDBEDREQ 19:56 → ENRESERV 21:00
PROVIDERS: ADMIT Internal Medicine; ATTEND Internal Medicine
DX: I12.0 Hypertensive chronic kidney disease with stage 5 chronic kidney disease or end stage renal disease (principal); N17.0 Acute kidney failure with tubular necrosis; G45.9 Transient cerebral ischemic attack, unspecified; E44.0 Moderate protein-calorie malnutrition; C90.00 Multiple myeloma not having achieved remission; E11.22 Type 2 diabetes mellitus with diabetic chronic kidney disease; J44.9 Chronic obstructive pulmonary disease, unspecified; M19.90 Unspecified osteoarthritis, unspecified site; M48.061 Spinal stenosis, lumbar region without neurogenic claudication; D63.8 Anemia in other chronic diseases classified elsewhere; G40.909 Epilepsy, unspecified, not intractable, without status epilepticus; M54.16 Radiculopathy, lumbar region; G89.29 Other chronic pain; M10.9 Gout, unspecified; E83.39 Other disorders of phosphorus metabolism; Z85.3 Personal history of malignant neoplasm of breast; Z86.73 Personal history of transient ischemic attack (TIA), and cerebral infarction without residual deficits; Z68.33 Body mass index [BMI] 33.0-33.9, adult; Z88.6 Allergy status to analgesic agent; Z88.5 Allergy status to narcotic agent; Z79.899 Other long term (current) drug therapy; Z90.49 Acquired absence of other specified parts of digestive tract; I10 Essential (primary) hypertension
CPT/HCPCS: 36415; 71045; 72141; 80048; 80061; 81003; 82550; 82553; 82962; 84100; 84484; 93005; 93970; 97161; 99291; J0360; J1650

== ENCOUNTER 2019-04-12 21:24 | Inpatient (IN) | payer MEDICARE, MEDICAID ==
[~2019-04-12] VITALS: Ht 157.5 cm; Wt 77.1 kg
[~2019-04-12 21:24] MED LIST changes: -AZOPT EACHEYE; -BRIM10DR2 OP; -BROM3DRO OP; -BROM5DRO3 EACHEYE; -METO5TAB69 PO; +METO5TAB7 PO; +SIMV-46 PO; -SIMV40TA5 PO
[2019-04-12 22:47] LABS: BASOPHILS % 1.1 % (0.0-2.0); EOSINOPHILS % 4.3 % (0.0-5.0); HEMATOCRIT. 37.1 % (36.0-48.0); HEMOGLOBIN. 12.1 g/dL (12.0-16.0); LYMPHOCYTES % 14.4 % (20.0-50.0); MEAN CORPUSCULAR HEMOGLOBIN 29.2 pg (28.0-32.0); MEAN CORPUSCULAR VOLUME 89.2 fL (81.0-99.0); MEAN PLATELET VOLUME 7.7 fl (7.4-10.4); MONOCYTES % 14.1 % (2.0-8.0); NEUTROPHILS % 66.1 % (40.0-76.0); PLATELET 191 x1000/uL (130-400); RED BLOOD CELL COUNT 4.16 mill/uL (4.2-5.4); RED CELL DISTRIBUTION WIDTH 17.5 % (11.6-14.6)
[2019-04-12 22:54] LABS: CHLORIDE 108 mEq/L (98-107)
[2019-04-13] MEDS ORDERED: ASPIRIN 325MG TABLET PO ONE
[2019-04-13] MEDS ORDERED: CLONIDINE 0.1MG TABLET PO PRN (08:45)
[2019-04-13] MEDS ORDERED: ACETAMINOPHEN 325MG TABLET PO PRN (08:45)
[2019-04-13] MEDS ORDERED: ONDANSETRON HCL 4MG/2ML INJ IV PRN (08:45)
[2019-04-13 09:00] VITALS: BP 162/82
[2019-04-13] MEDS ORDERED: ALLOPURINOL 100 MG TABLET PO SCH ×2 (09:00→10:00)
[2019-04-13] MEDS ORDERED: GABAPENTIN 100MG CAPSULE PO SCH (10:00)
[2019-04-13] MEDS ORDERED: ENOXAPARIN 30MG/0.3ML SYR SUBCUT SCH (10:00)
[2019-04-13] MEDS ORDERED: NEBIVOLOL HCL 5 MG TABLET PO SCH (10:00)
[2019-04-13] MEDS ORDERED: LINAGLIPTIN 5MG TABLET PO SCH (10:00)
[2019-04-13] MEDS ORDERED: AMLODIPINE 5MG TABLET PO SCH ×2 (10:00→21:00)
[2019-04-13] MEDS ORDERED: ANASTROZOLE 1 MG TABLET PO SCH (11:00)
[2019-04-13] MEDS: IPRATROPIUM/ALBUTEROL 0.5-3(2.5)MG/3ML NEB HHN SCH ×4 (11:52→23:40)
[2019-04-13] MEDS: SODIUM CHLORIDE 0.45% 1,000 ML IV SCH (11:56)
[2019-04-13 12:00] VITALS: BP 179/71
[2019-04-13] MEDS ORDERED: CLONIDINE HCL 0.2MG/24HR PATCH TD SCH (12:00)
[2019-04-13] MEDS: GLYBURIDE 5MG TABLET PO SCH (12:30)
[2019-04-13 14:21] LABS: FOLIC ACID (FOLATE) SERUM 17.8 ng/mL (>5.38)
[2019-04-13 16:00] VITALS: BP 162/78
[2019-04-13 20:00] VITALS: BP 154/71
[2019-04-14] VITALS: BP 132/76
[2019-04-14 01:33] LABS: CLARITY URINE CLOUDY (CLEAR); COLOR URINE YELLOW (YELLOW); KETONES URINE NEGATIVE (NEGATIVE); LEUKOCYTE ESTERASE URINE NEGATIVE (NEGATIVE); NITRITE URINE NEGATIVE (NEGATIVE); OCCULT BLOOD URINE 1+ (NEGATIVE); PROTEIN URINE 4+ (NEGATIVE); SPECIFIC GRAVITY URINE 1.014 (1.005-1.030); UROBILINOGEN URINE 0.2 E.U./dL (0.2-1.0)
[2019-04-14 01:48] LABS: *AMPHETAMINES SCREEN URINE NEGATIVE (NEGATIVE); *BARBITURATES SCREEN URINE NEGATIVE (NEGATIVE)
[2019-04-14 01:49] LABS: *BENZODIAZEPINES SCREEN URINE NEGATIVE (NEGATIVE); *COCAINE SCREEN URINE NEGATIVE (NEGATIVE); CANNABINOID URINE SCREEN NEGATIVE (NEGATIVE); METHADONE URINE SCREEN NEGATIVE (NEGATIVE); OPIATES URINE SCREEN NEGATIVE (NEGATIVE); PHENCYCLIDINE URINE SCREEN NEGATIVE (NEGATIVE)
[2019-04-14] MEDS: IPRATROPIUM/ALBUTEROL 0.5-3(2.5)MG/3ML NEB HHN SCH ×2 (03:08→08:05)
[2019-04-14 04:00] VITALS: BP 141/76
[2019-04-14] MEDS: SODIUM CHLORIDE 0.45% 1,000 ML IV SCH (05:55)
[2019-04-14] MEDS: GLYBURIDE 5MG TABLET PO SCH (07:30)
[2019-04-14 07:34] LABS: BASOPHILS % 0.8 % (0.0-2.0); EOSINOPHILS % 3.3 % (0.0-5.0); HEMOGLOBIN. 10.1 g/dL (12.0-16.0); MEAN CORPUSCULAR HEMOGLOBIN 28.5 pg (28.0-32.0); MEAN CORPUSCULAR VOLUME 90.4 fL (81.0-99.0); MEAN PLATELET VOLUME 8.2 fl (7.4-10.4); MONOCYTES % 12.5 % (2.0-8.0); NEUTROPHILS % 64.4 % (40.0-76.0); PLATELET 170 x1000/uL (130-400); RED BLOOD CELL COUNT 3.53 mill/uL (4.2-5.4); RED CELL DISTRIBUTION WIDTH 17.3 % (11.6-14.6)
[2019-04-14 08:17] VITALS: BP 135/57
== END 2019-04-14 09:46 | disposition home or self-care (01) | DRG 682 ==
LOC: ER 21:24 → 5EST 04-13 01:58 → EDBEDREQDT 04-13 02:00 → EDBEDREQ 04-13 02:00 → EDBEDREQTM 04-13 02:00 → ENRESERV 04-13 08:23 → EDBEDREQTM 04-13 09:07 → EDBEDREQSVC 04-13 09:07
PROVIDERS: ADMIT Internal Medicine; ATTEND Internal Medicine
DX: I13.10 Hypertensive heart and chronic kidney disease without heart failure, with stage 1 through stage 4 chronic kidney disease, or unspecified chronic kidney disease (principal); I63.9 Cerebral infarction, unspecified; G45.9 Transient cerebral ischemic attack, unspecified; N17.9 Acute kidney failure, unspecified; N18.4 Chronic kidney disease, stage 4 (severe); D63.1 Anemia in chronic kidney disease; E11.22 Type 2 diabetes mellitus with diabetic chronic kidney disease; E11.42 Type 2 diabetes mellitus with diabetic polyneuropathy; E78.00 Pure hypercholesterolemia, unspecified; F41.1 Generalized anxiety disorder; J44.9 Chronic obstructive pulmonary disease, unspecified; G47.33 Obstructive sleep apnea (adult) (pediatric); M10.9 Gout, unspecified; M19.90 Unspecified osteoarthritis, unspecified site; R29.810 Facial weakness; Z79.811 Long term (current) use of aromatase inhibitors; Z79.84 Long term (current) use of oral hypoglycemic drugs; Z79.899 Other long term (current) drug therapy; Z85.3 Personal history of malignant neoplasm of breast; Z88.6 Allergy status to analgesic agent; Z88.8 Allergy status to other drugs, medicaments and biological substances; Z90.49 Acquired absence of other specified parts of digestive tract
CPT/HCPCS: 36415; 71045; 80048; 80053; 80305; 81003; 82607; 82746; 82962; 83036; 84207; 84443; 84484; 85025; 93005; 94640; 99291; J1650; J7620

== ENCOUNTER 2019-04-22 08:16 | Day surgery (SDC) | payer MEDICARE, MEDICAID ==
[2019-04-22] VITALS (12 sets, daily range): BP systolic 151–186; BP diastolic 78–93
[~2019-04-22] VITALS: Ht 157.5 cm; Wt 81.6 kg
[~2019-04-22 08:16] MED LIST changes: -LINA5TAB PO; -METO5TAB7 PO; -SIMV-46 PO; +SIMV40TA5 PO
[2019-04-22] MEDS ORDERED: LIDOCAINE HCL 1% 20ML VIAL (Pyxis) INJ ONE (08:24)
[2019-04-22] MEDS ORDERED: FENTANYL CITRATE/PF 50MCG/ML 2ML VIAL ONE (08:24)
[2019-04-22] MEDS ORDERED: SODIUM BICARBONATE 4% (2.4MEQ) 5ML VIAL IV ONE (08:24)
[2019-04-22] MEDS ORDERED: FENTANYL CITRATE/PF 50MCG/ML 2ML VIAL IV ONE (09:30)
[2019-04-22 13:25] LABS: HEMATOCRIT 33.8 % (36.0-48.0); HEMOGLOBIN 10.8 g/dL (12.0-16.0)
== END 2019-04-22 14:00 | disposition home or self-care (01) ==
LOC: RAD 08:16
PROVIDERS: ATTEND Internal Medicine Geriatric Medicine
DX: N18.9 Chronic kidney disease, unspecified (principal); Z88.5 Allergy status to narcotic agent; Z88.8 Allergy status to other drugs, medicaments and biological substances; Z80.3 Family history of malignant neoplasm of breast; Z82.49 Family history of ischemic heart disease and other diseases of the circulatory system; Z83.3 Family history of diabetes mellitus; Z79.899 Other long term (current) drug therapy
CPT/HCPCS: 36415; 50200; 76942; 85014; 85018; 88305; 88346; 88348; J3010; J3490

== ENCOUNTER 2019-05-27 05:24 | Day surgery (SDC) | payer MEDICARE, MEDICAID ==
[~2019-05-27] VITALS: Ht 157.5 cm; Wt 81.0 kg
[~2019-05-27 05:24] MED LIST changes: -SAXA5TAB PO; +SIMV-46 PO; -SIMV40TA5 PO
[2019-05-27 07:42] LABS: BASOPHILS % 0.9 % (0.0-2.0); EOSINOPHILS % 3.6 % (0.0-5.0); HEMATOCRIT. 30.8 % (36.0-48.0); HEMOGLOBIN. 9.9 g/dL (12.0-16.0); LYMPHOCYTES % 14.7 % (20.0-50.0); MEAN CORPUSCULAR VOLUME 86.6 fL (81.0-99.0); MEAN PLATELET VOLUME 8.1 fl (7.4-10.4); MONOCYTES % 13.2 % (2.0-8.0); NEUTROPHILS % 67.6 % (40.0-76.0); PLATELET 199 x1000/uL (130-400); RED BLOOD CELL COUNT 3.55 mill/uL (4.2-5.4); RED CELL DISTRIBUTION WIDTH 17.4 % (11.6-14.6)
[2019-05-27] MEDS ORDERED: PARI2CAP3 PO (08:12)
[2019-05-27] MEDS ORDERED: SODI650T PO (08:12)
[2019-05-27] MEDS ORDERED: LINA5TAB PO (08:12)
== END 2019-05-27 10:00 | disposition home or self-care (01) ==
LOC: OR 05:24
PROVIDERS: ATTEND Pathology Anatomic Pathology & Clinical Pathology
DX: C90.00 Multiple myeloma not having achieved remission (principal); I12.9 Hypertensive chronic kidney disease with stage 1 through stage 4 chronic kidney disease, or unspecified chronic kidney disease; E11.22 Type 2 diabetes mellitus with diabetic chronic kidney disease; N18.4 Chronic kidney disease, stage 4 (severe); Z79.899 Other long term (current) drug therapy; Z79.84 Long term (current) use of oral hypoglycemic drugs; Z88.5 Allergy status to narcotic agent; Z88.8 Allergy status to other drugs, medicaments and biological substances; Z90.710 Acquired absence of both cervix and uterus; Z98.890 Other specified postprocedural states; Z82.49 Family history of ischemic heart disease and other diseases of the circulatory system; Z83.3 Family history of diabetes mellitus; Z80.3 Family history of malignant neoplasm of breast
CPT/HCPCS: 36415; 38221; 82962; 85025; 85060; 85097; 88313; J2704; J3010; J3490; 38220

== ENCOUNTER 2019-08-12 10:04 | Inpatient (IN) | payer MEDICARE, MEDICAID ==
[~2019-08-12] VITALS: Ht 157.5 cm; Wt 75.8 kg
[~2019-08-12 10:04] MED LIST changes: +LINA5TAB PO; +PARI2CAP3 PO; +SODI650T PO
[2019-08-12 13:03] LABS: BASOPHILS % 0.6 % (0.0-2.0); EOSINOPHILS % 1.1 % (0.0-5.0); HEMATOCRIT. 22.5 % (36.0-48.0); HEMOGLOBIN. 7.4 g/dL (12.0-16.0); LYMPHOCYTES % 10.4 % (20.0-50.0); MEAN CORPUSCULAR HEMOGLOBIN 31.8 pg (28.0-32.0); MEAN CORPUSCULAR VOLUME 96.6 fL (81.0-99.0); MEAN PLATELET VOLUME 8.2 fl (7.4-10.4); MONOCYTES % 11.4 % (2.0-8.0); NEUTROPHILS % 76.5 % (40.0-76.0); PLATELET 231 x1000/uL (130-400); RED BLOOD CELL COUNT 2.33 mill/uL (4.2-5.4); RED CELL DISTRIBUTION WIDTH 18.2 % (11.6-14.6)
[2019-08-12 13:10] LABS: CHLORIDE 109 mEq/L (98-107)
[2019-08-12] MEDS ORDERED: GUAIFENESIN 200MG/10ML SUGAR FREE UDC PO PRN (15:00)
[2019-08-12] MEDS ORDERED: ONDANSETRON HCL 4MG/2ML INJ IV PRN (15:00)
[2019-08-12] MEDS ORDERED: DEXTROSE 50% WATER 50ML SYRINGE IV PRN ×2 (15:15)
[2019-08-12 15:18] LABS: CLARITY URINE CLEAR (CLEAR); COLOR URINE YELLOW (YELLOW); KETONES URINE NEGATIVE (NEGATIVE); LEUKOCYTE ESTERASE URINE NEGATIVE (NEGATIVE); NITRITE URINE NEGATIVE (NEGATIVE); OCCULT BLOOD URINE 1+ (NEGATIVE); PROTEIN URINE 3+ (NEGATIVE); SPECIFIC GRAVITY URINE 1.013 (1.005-1.030); UROBILINOGEN URINE 0.2 E.U./dL (0.2-1.0)
[2019-08-12 15:45] LABS: TOTAL IRON BINDING CAPACITY 217 ug/dL (250-450)
[2019-08-12] MEDS: IPRATROPIUM/ALBUTEROL 0.5-3(2.5)MG/3ML NEB HHN SCH ×2 (17:19→21:07)
[2019-08-12] MEDS: BLOOD SUGAR DIAGNOSTIC STRIP TEST SCH ×2 (17:58→21:00)
[2019-08-12] MEDS: INSULIN LISPRO 100 UNITS/ML SUBCUT SCH ×2 (17:59→21:00)
[2019-08-12] MEDS: ACETAMINOPHEN 325MG TABLET PO PRN (20:05)
[2019-08-12] MEDS: FAMOTIDINE 20MG TABLET PO SCH (22:02)
[2019-08-12 23:35] LABS: CREATINE KINASE MB FRACTION 2.7 ng/mL (0.5-3.6)
[2019-08-13] MEDS: ACETAMINOPHEN 325MG TABLET PO PRN ×2 (00:50→14:48)
[2019-08-13] MEDS: IPRATROPIUM BROMIDE (0.02%) 0.5MG/2.5ML NEB HHN SCH ×2 (01:54→20:40)
[2019-08-13] MEDS: IPRATROPIUM/ALBUTEROL 0.5-3(2.5)MG/3ML NEB HHN SCH (02:10)
[2019-08-13 04:46] LABS: MEAN CORPUSCULAR HEMOGLOBIN 31.7 pg (28.0-32.0); MEAN CORPUSCULAR VOLUME 98.8 fL (81.0-99.0); MEAN PLATELET VOLUME 8.5 fl (7.4-10.4); PLATELET 219 x1000/uL (130-400); RED BLOOD CELL COUNT 2.14 mill/uL (4.2-5.4); RED CELL DISTRIBUTION WIDTH 18.3 % (11.6-14.6)
[2019-08-13 04:51] LABS: HEMOGLOBIN. 6.8 g/dL (12.0-16.0)
[2019-08-13 04:52] LABS: CHLORIDE 108 mEq/L (98-107); HEMATOCRIT. 21.2 % (36.0-48.0)
[2019-08-13 04:58] LABS: PHOSPHORUS 6.7 mg/dL (2.5-4.9)
[2019-08-13 05:04] LABS: CREATINE KINASE MB FRACTION 2.5 ng/mL (0.5-3.6)
[2019-08-13 05:19] LABS: HEPATITIS B SURFACE ANTIGEN NEGATIVE
[2019-08-13 07:19] LABS: PLATELET ESTIMATE NORMAL
[2019-08-13] MEDS: INSULIN LISPRO 100 UNITS/ML SUBCUT SCH ×4 (08:20→21:00)
[2019-08-13] MEDS ORDERED: NEBIVOLOL HCL 5 MG TABLET PO SCH (09:00)
[2019-08-13] MEDS: BLOOD SUGAR DIAGNOSTIC STRIP TEST SCH ×4 (09:00→21:47)
[2019-08-13] MEDS: FOLIC ACID/VITAMIN B COMP W-C TABLET PO SCH (09:00)
[2019-08-13] MEDS ORDERED: TRAMADOL HCL/ACETAMINOPHEN 37.5/325MG TABLET PO PRN (10:00)
[2019-08-13] MEDS ORDERED: FUROSEMIDE 100MG/10ML VIAL IVP NR (10:00)
[2019-08-13] MEDS: CEFTRIAXONE 1 G PREMIX 50 ML IV SCH (11:00)
[2019-08-13] MEDS ORDERED: LIDOCAINE HCL 1% 20ML VIAL (Pyxis) INJ ONE (11:32)
[2019-08-13 11:38] VITALS: BP 140/74
[2019-08-13 12:00] VITALS: BP 163/64
[2019-08-13 12:18] LABS: PROTHROMBIN TIME 10.7 sec (9.6-11.0)
[2019-08-13] MEDS: AMLODIPINE 10MG TABLET PO SCH ×2 (12:45→21:45)
[2019-08-13] MEDS: FERROUS SULFATE 325MG TABLET PO SCH ×2 (14:48→18:19)
[2019-08-13] MEDS: SEVELAMER CARBONATE 800 MG TABLET PO SCH ×2 (14:48→18:10)
[2019-08-13 16:00] VITALS: BP 171/71
[2019-08-13 17:13] VITALS: BP 159/79
[2019-08-13 18:18] VITALS: BP 182/80
[2019-08-13] MEDS: DOCUSATE SODIUM 250MG CAPSULE PO SCH (18:19)
[2019-08-13] MEDS: CLONIDINE 0.1MG TABLET PO PRN ×2 (18:20→21:45)
[2019-08-13 20:00] VITALS: BP 170/88
[2019-08-13] MEDS: LORAZEPAM 2MG/ML CPJ IV PRN (20:37)
[2019-08-13] MEDS ORDERED: ZOLPIDEM TARTRATE 5MG TABLET PO PRN (21:00)
[2019-08-13] MEDS: FAMOTIDINE 20MG TABLET PO SCH (21:45)
[2019-08-14] VITALS: BP 145/89
[2019-08-14 04:00] VITALS: BP 174/76
[2019-08-14] MEDS: CLONIDINE 0.1MG TABLET PO PRN (06:07)
[2019-08-14] MEDS: HYDRALAZINE HCL 25MG TABLET PO SCH ×3 (06:39→21:20)
[2019-08-14 08:00] VITALS: BP 158/65
[2019-08-14] MEDS: INSULIN LISPRO 100 UNITS/ML SUBCUT SCH ×4 (08:06→20:48)
[2019-08-14] MEDS: BLOOD SUGAR DIAGNOSTIC STRIP TEST SCH ×4 (08:06→20:48)
[2019-08-14] MEDS: SEVELAMER CARBONATE 800 MG TABLET PO SCH ×3 (08:10→17:52)
[2019-08-14] MEDS: FERROUS SULFATE 325MG TABLET PO SCH ×3 (08:10→17:52)
[2019-08-14] MEDS: DOCUSATE SODIUM 250MG CAPSULE PO SCH (09:00)
[2019-08-14] MEDS: FOLIC ACID/VITAMIN B COMP W-C TABLET PO SCH (09:00)
[2019-08-14 09:58] LABS: HEMATOCRIT. 25.7 % (36.0-48.0); HEMOGLOBIN. 8.6 g/dL (12.0-16.0); MEAN CORPUSCULAR HEMOGLOBIN 31.2 pg (28.0-32.0); MEAN CORPUSCULAR VOLUME 92.9 fL (81.0-99.0); MEAN PLATELET VOLUME 8.6 fl (7.4-10.4); PLATELET 202 x1000/uL (130-400); RED BLOOD CELL COUNT 2.77 mill/uL (4.2-5.4); RED CELL DISTRIBUTION WIDTH 17.3 % (11.6-14.6)
[2019-08-14] MEDS ORDERED: MANNITOL 12.5G (25%) VIAL 50ML IV NR (10:00)
[2019-08-14 10:24] LABS: CREATINE KINASE MB FRACTION 5.3 ng/mL (0.5-3.6)
[2019-08-14] MEDS: IPRATROPIUM BROMIDE (0.02%) 0.5MG/2.5ML NEB HHN SCH ×4 (10:33→19:58)
[2019-08-14 12:00] VITALS: BP 153/81
[2019-08-14 12:01] LABS: BG BASE EXCESS -2.4 mmol/L (-2.0-2.0); BG CARBOXYHEMOGLOBIN 0.4 % (0.5-1.5); BG DEOXYHEMOGLOBIN 7.4 % (0.0-5.0); BG FRACTION INSPIRED OXYGEN 21; BG HCO3 ACT 21.1 mmol/L (22.0-26.0); BG OXYGEN SATURATION 92.6 % (92.0-98.5); BG OXYHEMOGLOBIN 92.2 % (94.0-97.0); BG PCO2 31.1 mmHg (35.0-45.0); BG PO2 61.5 mmHg (75.0-100.0); BG SAMPLE SITE RIGHT RADIAL; BG TOTAL HEMOGLOBIN 8.3 g/dL (12.0-18.0); BG VENT MODE ROOM AIR
[2019-08-14] MEDS: NEBIVOLOL HCL 5 MG TABLET PO SCH (13:01)
[2019-08-14] MEDS: AMLODIPINE 10MG TABLET PO SCH ×2 (13:01→20:47)
[2019-08-14] MEDS: CEFTRIAXONE 1 G PREMIX 50 ML IV SCH (13:02)
[2019-08-14 14:26] LABS: PLATELET ESTIMATE NORMAL
[2019-08-14 16:00] VITALS: BP 153/59
[2019-08-14] MEDS: FAMOTIDINE 20MG TABLET PO SCH (20:53)
[2019-08-14 21:36] LABS: T4 FREE 1.07 ng/dL (0.76-1.46)
[2019-08-15 00:12] VITALS: BP 144/51
[2019-08-15] MEDS: IPRATROPIUM BROMIDE (0.02%) 0.5MG/2.5ML NEB HHN SCH (01:01)
[2019-08-15 04:00] VITALS: BP 162/54
[2019-08-15] MEDS: HYDRALAZINE HCL 25MG TABLET PO SCH ×3 (06:16→21:38)
[2019-08-15 06:46] LABS: HEMATOCRIT. 27.4 % (36.0-48.0); HEMOGLOBIN. 9.1 g/dL (12.0-16.0); MEAN CORPUSCULAR HEMOGLOBIN 31.7 pg (28.0-32.0); MEAN PLATELET VOLUME 8.5 fl (7.4-10.4); PLATELET 197 x1000/uL (130-400); RED BLOOD CELL COUNT 2.88 mill/uL (4.2-5.4); RED CELL DISTRIBUTION WIDTH 17.7 % (11.6-14.6)
[2019-08-15] MEDS: BLOOD SUGAR DIAGNOSTIC STRIP TEST SCH ×4 (06:51→21:32)
[2019-08-15] MEDS: INSULIN LISPRO 100 UNITS/ML SUBCUT SCH ×4 (06:51→21:00)
[2019-08-15 08:00] VITALS: BP 165/62
[2019-08-15] MEDS: DOCUSATE SODIUM 250MG CAPSULE PO SCH (08:42)
[2019-08-15] MEDS: AMLODIPINE 10MG TABLET PO SCH ×2 (08:42→21:40)
[2019-08-15] MEDS: FOLIC ACID/VITAMIN B COMP W-C TABLET PO SCH (08:42)
[2019-08-15] MEDS: FERROUS SULFATE 325MG TABLET PO SCH ×3 (08:43→17:29)
[2019-08-15] MEDS: NEBIVOLOL HCL 5 MG TABLET PO SCH (08:43)
[2019-08-15] MEDS: SEVELAMER CARBONATE 800 MG TABLET PO SCH ×3 (08:43→17:29)
[2019-08-15] MEDS ORDERED: MANNITOL 12.5G (25%) VIAL 50ML IV SCH (09:00)
[2019-08-15] MEDS ORDERED: DOCUSATE SODIUM 250MG CAPSULE PO SCH (09:00)
[2019-08-15] MEDS ORDERED: FUROSEMIDE 20MG/2ML VIAL IV SCH (10:00)
[2019-08-15 11:41] LABS: PLATELET ESTIMATE NORMAL
[2019-08-15 12:00] VITALS: BP 158/54
[2019-08-15] MEDS: CEFTRIAXONE 1 G PREMIX 50 ML IV SCH (12:02)
[2019-08-15 16:00] VITALS: BP 157/66
[2019-08-15 20:00] VITALS: BP 138/72
[2019-08-15] MEDS: EPOETIN ALFA 10000UNITS/ML VIAL SUBCUT SCH (21:37)
[2019-08-15] MEDS: FAMOTIDINE 20MG TABLET PO SCH (21:39)
[2019-08-16] VITALS (16 sets, daily range): BP systolic 130–179; BP diastolic 59–86
[2019-08-16] MEDS: IPRATROPIUM BROMIDE (0.02%) 0.5MG/2.5ML NEB HHN SCH ×3 (04:00→08:58)
[2019-08-16] MEDS: HYDRALAZINE HCL 25MG TABLET PO SCH ×3 (05:56→21:36)
[2019-08-16 06:39] LABS: BASOPHILS % 0.3 % (0.0-2.0); EOSINOPHILS % 2.2 % (0.0-5.0); HEMATOCRIT. 30.6 % (36.0-48.0); HEMOGLOBIN. 10.2 g/dL (12.0-16.0); LYMPHOCYTES % 9.2 % (20.0-50.0); MEAN CORPUSCULAR HEMOGLOBIN 31.7 pg (28.0-32.0); MEAN CORPUSCULAR VOLUME 95.5 fL (81.0-99.0); MEAN PLATELET VOLUME 8.3 fl (7.4-10.4); MONOCYTES % 13.8 % (2.0-8.0); NEUTROPHILS % 74.5 % (40.0-76.0); PLATELET 225 x1000/uL (130-400); RED BLOOD CELL COUNT 3.21 mill/uL (4.2-5.4); RED CELL DISTRIBUTION WIDTH 17.8 % (11.6-14.6)
[2019-08-16] MEDS: INSULIN LISPRO 100 UNITS/ML SUBCUT SCH ×4 (08:10→21:00)
[2019-08-16] MEDS: BLOOD SUGAR DIAGNOSTIC STRIP TEST SCH ×4 (08:39→21:43)
[2019-08-16] MEDS: DOCUSATE SODIUM 250MG CAPSULE PO SCH (08:40)
[2019-08-16] MEDS: FOLIC ACID/VITAMIN B COMP W-C TABLET PO SCH (08:40)
[2019-08-16] MEDS: SEVELAMER CARBONATE 800 MG TABLET PO SCH ×3 (08:40→17:40)
[2019-08-16] MEDS: FERROUS SULFATE 325MG TABLET PO SCH ×2 (08:41→17:39)
[2019-08-16] MEDS: NEBIVOLOL HCL 5 MG TABLET PO SCH (08:43)
[2019-08-16] MEDS: CLONIDINE 0.1MG TABLET PO PRN (08:43)
[2019-08-16] MEDS: AMLODIPINE 10MG TABLET PO SCH ×2 (08:43→21:36)
[2019-08-16] MEDS ORDERED: LIDOCAINE HCL 1% 20ML VIAL (Pyxis) INJ ONE (11:01)
[2019-08-16] MEDS ORDERED: SODIUM BICARBONATE 4% (2.4MEQ) 5ML VIAL IV ONE (11:01)
[2019-08-16] MEDS ORDERED: FENTANYL CITRATE/PF 50MCG/ML 2ML VIAL ONE (11:38)
[2019-08-16] MEDS ORDERED: FENTANYL CITRATE/PF 50MCG/ML 2ML VIAL IV ONE (12:00)
[2019-08-16] MEDS: CEFTRIAXONE 1 G PREMIX 50 ML IV SCH (14:18)
[2019-08-16] MEDS: FAMOTIDINE 20MG TABLET PO SCH (21:36)
[2019-08-16] MEDS: LORAZEPAM 2MG/ML CPJ IV PRN (23:16)
[2019-08-17] VITALS (12 sets, daily range): BP systolic 135–188; BP diastolic 64–93
[2019-08-17] MEDS: LORAZEPAM 2MG/ML CPJ IV PRN (05:16)
[2019-08-17] MEDS: HYDRALAZINE HCL 25MG TABLET PO SCH ×3 (06:00→22:00)
[2019-08-17] MEDS: INSULIN LISPRO 100 UNITS/ML SUBCUT SCH ×4 (07:51→21:32)
[2019-08-17] MEDS: BLOOD SUGAR DIAGNOSTIC STRIP TEST SCH ×4 (07:51→21:25)
[2019-08-17] MEDS: SEVELAMER CARBONATE 800 MG TABLET PO SCH ×3 (08:10→17:20)
[2019-08-17] MEDS: DEXT 5%/0.45% NACL 1000ML 1,000 ML IV SCH (08:23)
[2019-08-17] MEDS: HYDRALAZINE 20MG/ML VIAL IV PRN ×2 (08:23→23:25)
[2019-08-17] MEDS ORDERED: HYDRALAZINE 20MG/ML VIAL IV PRN (08:30)
[2019-08-17] MEDS: FERROUS SULFATE 325MG TABLET PO SCH ×2 (08:36→16:39)
[2019-08-17] MEDS: NEBIVOLOL HCL 5 MG TABLET PO SCH (08:36)
[2019-08-17] MEDS: FOLIC ACID/VITAMIN B COMP W-C TABLET PO SCH (08:36)
[2019-08-17] MEDS: DOCUSATE SODIUM 250MG CAPSULE PO SCH (08:36)
[2019-08-17] MEDS: AMLODIPINE 10MG TABLET PO SCH ×2 (08:36→22:00)
[2019-08-17 09:18] LABS: BG BASE EXCESS -2.8 mmol/L (-2.0-2.0); BG CARBOXYHEMOGLOBIN 0.3 % (0.5-1.5); BG DEOXYHEMOGLOBIN 1.9 % (0.0-5.0); BG FRACTION INSPIRED OXYGEN 28; BG HCO3 ACT 19.7 mmol/L (22.0-26.0); BG METHEMOGLOBIN 0.2 % (0.0-1.5); BG OXYGEN SATURATION 98.1 % (92.0-98.5); BG OXYHEMOGLOBIN 97.6 % (94.0-97.0); BG PCO2 26.7 mmHg (35.0-45.0); BG PH 7.486 (7.350-7.450); BG PO2 106.3 mmHg (75.0-100.0); BG SAMPLE SITE RIGHT RADIAL; BG TOTAL HEMOGLOBIN 9.5 g/dL (12.0-18.0); BG VENT MODE NASAL CANNULA
[2019-08-17 10:34] LABS: BASOPHILS % 0.4 % (0.0-2.0); HEMATOCRIT. 28.2 % (36.0-48.0); HEMOGLOBIN. 9.3 g/dL (12.0-16.0); LYMPHOCYTES % 8.4 % (20.0-50.0); MEAN CORPUSCULAR HEMOGLOBIN 31.6 pg (28.0-32.0); MEAN CORPUSCULAR VOLUME 95.9 fL (81.0-99.0); MONOCYTES % 13.7 % (2.0-8.0); NEUTROPHILS % 75.5 % (40.0-76.0); PLATELET 181 x1000/uL (130-400); RED BLOOD CELL COUNT 2.94 mill/uL (4.2-5.4); RED CELL DISTRIBUTION WIDTH 17.3 % (11.6-14.6)
[2019-08-17] MEDS: CEFTRIAXONE 1 G PREMIX 50 ML IV SCH (11:38)
[2019-08-17] MEDS: FAMOTIDINE 20MG TABLET PO SCH (22:00)
[2019-08-18] VITALS (13 sets, daily range): BP systolic 140–177; BP diastolic 58–75
[2019-08-18] MEDS: EPOETIN ALFA 10000UNITS/ML VIAL SUBCUT SCH (00:31)
[2019-08-18] MEDS: CLONIDINE 0.1MG TABLET PO PRN ×2 (01:27→13:01)
[2019-08-18] MEDS: DEXT 5%/0.45% NACL 1000ML 1,000 ML IV SCH (05:48)
[2019-08-18] MEDS: HYDRALAZINE HCL 25MG TABLET PO SCH (05:49)
[2019-08-18] MEDS: BLOOD SUGAR DIAGNOSTIC STRIP TEST SCH ×2 (05:49→12:05)
[2019-08-18 06:09] LABS: HEMATOCRIT. 26.6 % (36.0-48.0); MEAN CORPUSCULAR VOLUME 94.8 fL (81.0-99.0); MEAN PLATELET VOLUME 7.8 fl (7.4-10.4); PLATELET 188 x1000/uL (130-400)
[2019-08-18] MEDS: INSULIN LISPRO 100 UNITS/ML SUBCUT SCH ×2 (07:20→12:05)
[2019-08-18 08:33] LABS: PLATELET ESTIMATE NORMAL
[2019-08-18] MEDS: FOLIC ACID/VITAMIN B COMP W-C TABLET PO SCH (09:17)
[2019-08-18] MEDS: FERROUS SULFATE 325MG TABLET PO SCH (09:17)
[2019-08-18] MEDS: SEVELAMER CARBONATE 800 MG TABLET PO SCH ×2 (09:18→12:56)
[2019-08-18] MEDS: NEBIVOLOL HCL 5 MG TABLET PO SCH (09:18)
[2019-08-18] MEDS: DOCUSATE SODIUM 250MG CAPSULE PO SCH (09:19)
[2019-08-18] MEDS: AMLODIPINE 10MG TABLET PO SCH (09:20)
[2019-08-18] MEDS: CEFTRIAXONE 1 G PREMIX 50 ML IV SCH (11:00)
[2019-08-18] MEDS ORDERED: HYDRALAZINE HCL 50MG TABLET PO SCH (14:00)
== END 2019-08-18 15:25 | disposition home or self-care (01) | DRG 70 ==
LOC: ER 10:04 → 7WST 14:33 → EDBEDREQTM 14:44 → EDBEDREQ 14:44 → ENRESERV 08-13 08:07 → 3WST 08-17 09:20
PROVIDERS: ADMIT Internal Medicine Geriatric Medicine; ATTEND Internal Medicine Geriatric Medicine
PROC: 5A1D70Z Performance of Urinary Filtration, Intermittent, Less than 6 Hours Per Day (ICD-10-PCS; 2019-08-12)
PROC: 30233N1 Transfusion of Nonautologous Red Blood Cells into Peripheral Vein, Percutaneous Approach (ICD-10-PCS; principal; 2019-08-13)
PROC: 02HV33Z Insertion of Infusion Device into Superior Vena Cava, Percutaneous Approach (ICD-10-PCS; 2019-08-13)
PROC: B5181ZA Fluoroscopy of Superior Vena Cava using Low Osmolar Contrast, Guidance (ICD-10-PCS; 2019-08-13)
PROC: B548ZZA Ultrasonography of Superior Vena Cava, Guidance (ICD-10-PCS; 2019-08-13)
PROC: 5A1D70Z Performance of Urinary Filtration, Intermittent, Less than 6 Hours Per Day (ICD-10-PCS; 2019-08-14)
PROC: 0JH63XZ Insertion of Tunneled Vascular Access Device into Chest Subcutaneous Tissue and Fascia, Percutaneous Approach (ICD-10-PCS; 2019-08-16)
PROC: 02HV33Z Insertion of Infusion Device into Superior Vena Cava, Percutaneous Approach (ICD-10-PCS; 2019-08-16)
PROC: B5181ZA Fluoroscopy of Superior Vena Cava using Low Osmolar Contrast, Guidance (ICD-10-PCS; 2019-08-16)
PROC: 5A1D70Z Performance of Urinary Filtration, Intermittent, Less than 6 Hours Per Day (ICD-10-PCS; 2019-08-17)
DX: G93.41 Metabolic encephalopathy (principal); J18.9 Pneumonia, unspecified organism; I50.33 Acute on chronic diastolic (congestive) heart failure; J96.00 Acute respiratory failure, unspecified whether with hypoxia or hypercapnia; N18.6 End stage renal disease; I13.2 Hypertensive heart and chronic kidney disease with heart failure and with stage 5 chronic kidney disease, or end stage renal disease; C90.00 Multiple myeloma not having achieved remission; C79.9 Secondary malignant neoplasm of unspecified site; J44.0 Chronic obstructive pulmonary disease with (acute) lower respiratory infection; N04.9 Nephrotic syndrome with unspecified morphologic changes; N25.81 Secondary hyperparathyroidism of renal origin; E44.0 Moderate protein-calorie malnutrition; M48.061 Spinal stenosis, lumbar region without neurogenic claudication; C50.919 Malignant neoplasm of unspecified site of unspecified female breast; E03.9 Hypothyroidism, unspecified; E11.22 Type 2 diabetes mellitus with diabetic chronic kidney disease; E78.5 Hyperlipidemia, unspecified; G47.33 Obstructive sleep apnea (adult) (pediatric); I35.0 Nonrheumatic aortic (valve) stenosis; M10.9 Gout, unspecified; M54.16 Radiculopathy, lumbar region; D50.9 Iron deficiency anemia, unspecified; D63.1 Anemia in chronic kidney disease; G89.29 Other chronic pain; I45.10 Unspecified right bundle-branch block; R74.0 Nonspecific elevation of levels of transaminase and lactic acid dehydrogenase [LDH]; M19.90 Unspecified osteoarthritis, unspecified site; Z79.811 Long term (current) use of aromatase inhibitors; Z79.84 Long term (current) use of oral hypoglycemic drugs; Z79.899 Other long term (current) drug therapy; Z83.3 Family history of diabetes mellitus; Z85.3 Personal history of malignant neoplasm of breast; Z87.441 Personal history of nephrotic syndrome; Z90.710 Acquired absence of both cervix and uterus; Z68.30 Body mass index [BMI] 30.0-30.9, adult; Z86.73 Personal history of transient ischemic attack (TIA), and cerebral infarction without residual deficits; Z99.2 Dependence on renal dialysis; Z90.49 Acquired absence of other specified parts of digestive tract
CPT/HCPCS: 36415; 36558; 36589; 36600; 71045; 77001; 80048; 80053; 80076; 81003; 82140; 82248; 82375; 82550; 82553; 82805; 82962; 83036; 83540; 83550; 83735; 83880; 83970; 84100; 84439; 84443; 84481; 84484; 85025; 85379; 86705; 86706; 86803; 86850; 86900; 86920; 87340; 93005; 93306; 93970; 94640; 99152; 99153; 99285; C1750; C1752; C1769; J0360; J0696; J0885; J1642; J1815; J1940; J2060; J2150; J3010; J3490; P9016; G0500

== ENCOUNTER 2021-12-15 05:51 | Emergency (ER) | payer MEDICARE, MEDICAID ==
[~2021-12-15] VITALS: Ht 157.5 cm; Wt 72.0 kg
[~2021-12-15 05:51] MED LIST changes: -GLYB5TAB7 PO; -LINA5TAB PO; +PARI2CAP PO; -PARI2CAP3 PO; -TRAV2.5D OP; +TRAV2.5D9 OP
[2021-12-15] MEDS ORDERED: ACET-3163 MT ×2 (07:13)
[2021-12-15] MEDS ORDERED: ONDA4TAB50 MT ×2 (07:13)
[2021-12-15] MEDS ORDERED: ACETAMINOPHEN 325MG TABLET PO ONE (07:15)
[2021-12-15] MEDS ORDERED: ONDANSETRON 4MG ODT PO ONE (07:15)
[2021-12-15] MEDS ORDERED: METHOCARBAMOL 500MG TABLET PO ONE (09:00)
[2021-12-15] MEDS ORDERED: CYCL10TA21 MT (10:06)
[2021-12-15 10:21] VITALS: BP 171/67
== END 2021-12-15 10:21 | disposition home or self-care (01) ==
LOC: ER 05:51
DX: M54.12 Radiculopathy, cervical region (principal); M19.012 Primary osteoarthritis, left shoulder; M19.011 Primary osteoarthritis, right shoulder; E11.9 Type 2 diabetes mellitus without complications; I12.0 Hypertensive chronic kidney disease with stage 5 chronic kidney disease or end stage renal disease; E11.22 Type 2 diabetes mellitus with diabetic chronic kidney disease; N18.6 End stage renal disease; Z99.2 Dependence on renal dialysis; Z90.710 Acquired absence of both cervix and uterus; Z98.890 Other specified postprocedural states; Z79.899 Other long term (current) drug therapy
CPT/HCPCS: 73030; 99283

== ENCOUNTER 2022-03-15 05:38 | Inpatient (IN) | payer MEDICARE, MEDICAID ==
[~2022-03-15] VITALS: Ht 160 cm; Wt 61.8 kg
[~2022-03-15 05:38] MED LIST changes: +CYCL10TA21 MT
[2022-03-15] MEDS ORDERED: CEFTRIAXONE 2 G PREMIX 50 ML IV ONE (06:00)
[2022-03-15 06:35] LABS: BASOPHILS % 0.4 % (0.0-2.0); EOSINOPHILS % 0.9 % (0.0-5.0); HEMOGLOBIN. 9.2 g/dL (12.0-16.0); LYMPHOCYTES % 11.1 % (20.0-50.0); MEAN CORPUSCULAR HEMOGLOBIN 31.1 pg (28.0-32.0); MEAN CORPUSCULAR VOLUME 107.9 fL (81.0-99.0); MEAN PLATELET VOLUME 8.7 fl (7.4-10.4); MONOCYTES % 13.3 % (2.0-8.0); NEUTROPHILS % 74.3 % (40.0-76.0); PLATELET 198 x1000/uL (130-400); RED BLOOD CELL COUNT 2.97 mill/uL (4.2-5.4); RED CELL DISTRIBUTION WIDTH 18.7 % (11.6-14.6)
[2022-03-15 06:41] LABS: CHLORIDE 102 mEq/L (98-107)
[2022-03-15] MEDS ORDERED: ASPIRIN 81MG TABLET PO SCH (07:15)
[2022-03-15] MEDS ORDERED: ASPIRIN 81MG TABLET PO ONE (08:45)
[2022-03-15] MEDS ORDERED: HEPARIN 25,000 UNITS PREMIX 250 ML IV PRN (09:00)
[2022-03-15] MEDS ORDERED: HEPARIN 5000 UNITS/ML VIAL IV PRN ×4 (09:00→09:06)
[2022-03-15] MEDS ORDERED: HEPARIN 5000 UNITS/ML VIAL IV SCH ×2 (09:00→10:00)
[2022-03-15] MEDS ORDERED: CLONIDINE 0.1MG TABLET PO PRN (09:15)
[2022-03-15] MEDS ORDERED: ONDANSETRON HCL 4MG/2ML INJ IV PRN (09:15)
[2022-03-15 10:34] LABS: CLARITY URINE CLEAR (CLEAR); COLOR URINE YELLOW (YELLOW); KETONES URINE TRACE (NEGATIVE); LEUKOCYTE ESTERASE URINE NEGATIVE (NEGATIVE); NITRITE URINE NEGATIVE (NEGATIVE); OCCULT BLOOD URINE TRACE (NEGATIVE); PH URINE 8.5 (4.5-8.0); PROTEIN URINE 3+ (NEGATIVE); SPECIFIC GRAVITY URINE 1.014 (1.005-1.030); UROBILINOGEN URINE 0.2 E.U./dL (0.2-1.0)
[2022-03-15 11:00] VITALS: BP 172/89
[2022-03-15 16:00] VITALS: BP_SYST 119; BP_SYST 139; BP_DIAS 64; BP_DIAS 80
[2022-03-15] MEDS: IPRATROPIUM/ALBUTEROL 0.5-3(2.5)MG/3ML NEB NEB PRN (18:10)
[2022-03-15 20:00] VITALS: BP 164/68
[2022-03-15] MEDS: BUDESONIDE 0.5MG/2ML NEB HHN SCH (21:14)
[2022-03-16] VITALS: BP 164/77
[2022-03-16 04:00] VITALS: BP 169/80
[2022-03-16 08:04] LABS: BASOPHILS % 0.7 % (0.0-2.0); HEMATOCRIT. 24.3 % (36.0-48.0); HEMOGLOBIN. 8.1 g/dL (12.0-16.0); LYMPHOCYTES % 13.4 % (20.0-50.0); MEAN CORPUSCULAR HEMOGLOBIN 31.7 pg (28.0-32.0); MEAN CORPUSCULAR VOLUME 94.9 fL (81.0-99.0); MEAN PLATELET VOLUME 7.8 fl (7.4-10.4); MONOCYTES % 14.6 % (2.0-8.0); NEUTROPHILS % 69.3 % (40.0-76.0); PLATELET 232 x1000/uL (130-400); RED BLOOD CELL COUNT 2.56 mill/uL (4.2-5.4); RED CELL DISTRIBUTION WIDTH 16.6 % (11.6-14.6)
[2022-03-16 08:27] LABS: CHLORIDE 98 mEq/L (98-107)
[2022-03-16 08:39] LABS: PHOSPHORUS 2.3 mg/dL (2.5-4.9)
[2022-03-16 08:46] LABS: BG BASE EXCESS 1.3 mmol/L (-2.0-2.0); BG CARBOXYHEMOGLOBIN 0.9 % (0.5-1.5); BG DEOXYHEMOGLOBIN 1.2 % (0.0-5.0); BG FRACTION INSPIRED OXYGEN 32; BG HCO3 ACT 24.4 mmol/L (22.0-26.0); BG METHEMOGLOBIN 0.1 % (0.0-1.5); BG OXYGEN SATURATION 98.8 % (92.0-98.5); BG OXYHEMOGLOBIN 97.8 % (94.0-97.0); BG PCO2 32.3 mmHg (35.0-45.0); BG PH 7.496 (7.350-7.450); BG PO2 114.1 mmHg (75.0-100.0); BG SAMPLE SITE RIGHT RADIAL; BG TOTAL HEMOGLOBIN 8.3 g/dL (12.0-18.0); BG VENT MODE NASAL CANNULA
[2022-03-16] MEDS ORDERED: NEBIVOLOL HCL 5 MG TABLET PO SCH (09:00)
[2022-03-16] MEDS ORDERED: ASPIRIN 81MG TABLET PO SCH (09:00)
[2022-03-16] MEDS: IPRATROPIUM/ALBUTEROL 0.5-3(2.5)MG/3ML NEB NEB PRN ×2 (09:01→15:58)
[2022-03-16] MEDS: BUDESONIDE 0.5MG/2ML NEB HHN SCH ×2 (09:01→20:39)
[2022-03-16] MEDS: AMLODIPINE 10MG TABLET PO SCH (11:34)
[2022-03-16] MEDS: FOLIC ACID 1MG TABLET PO SCH (11:35)
[2022-03-16] MEDS: NEBIVOLOL HCL 5 MG TABLET PO SCH (11:35)
[2022-03-16] MEDS: FOLIC ACID/VITAMIN B COMP W-C TABLET PO SCH (11:36)
[2022-03-16] MEDS: LOSARTAN POTASSIUM 50 MG TABLET PO SCH (11:36)
[2022-03-16 11:49] VITALS: BP 154/67
[2022-03-16] MEDS: CLONIDINE 0.1MG TABLET PO SCH ×2 (15:08→22:06)
[2022-03-16] MEDS ORDERED: DEXTROSE 50% WATER 50ML SYRINGE IV PRN (15:45)
[2022-03-16] MEDS: BLOOD SUGAR DIAGNOSTIC STRIP TEST SCH ×2 (17:08→21:00)
[2022-03-16] MEDS: INSULIN LISPRO 100 UNITS/ML SUBCUT SCH ×2 (18:10→22:05)
[2022-03-16 20:00] VITALS: BP 118/50
[2022-03-16] MEDS: ATORVASTATIN CALCIUM 20MG TABLET PO SCH (22:04)
[2022-03-17] VITALS: BP 124/62
[2022-03-17 03:01] LABS: BASOPHILS % 0.6 % (0.0-2.0); EOSINOPHILS % 2.8 % (0.0-5.0); HEMATOCRIT. 24.1 % (36.0-48.0); HEMOGLOBIN. 7.8 g/dL (12.0-16.0); LYMPHOCYTES % 16.3 % (20.0-50.0); MEAN CORPUSCULAR VOLUME 95.3 fL (81.0-99.0); MEAN PLATELET VOLUME 7.7 fl (7.4-10.4); MONOCYTES % 14.6 % (2.0-8.0); NEUTROPHILS % 65.7 % (40.0-76.0); PLATELET 209 x1000/uL (130-400); RED BLOOD CELL COUNT 2.53 mill/uL (4.2-5.4); RED CELL DISTRIBUTION WIDTH 17.1 % (11.6-14.6)
[2022-03-17 03:16] LABS: PHOSPHORUS 4.5 mg/dL (2.5-4.9)
[2022-03-17 04:00] VITALS: BP 162/80
[2022-03-17] MEDS: CLONIDINE 0.1MG TABLET PO SCH (05:32)
[2022-03-17] MEDS: BLOOD SUGAR DIAGNOSTIC STRIP TEST SCH ×4 (06:57→21:44)
[2022-03-17] MEDS: INSULIN LISPRO 100 UNITS/ML SUBCUT SCH ×4 (07:27→21:00)
[2022-03-17 07:57] VITALS: BP 155/61
[2022-03-17] MEDS: BUDESONIDE 0.5MG/2ML NEB HHN SCH (08:00)
[2022-03-17] MEDS: AMLODIPINE 10MG TABLET PO SCH (08:44)
[2022-03-17] MEDS: LOSARTAN POTASSIUM 50 MG TABLET PO SCH (08:44)
[2022-03-17] MEDS: FOLIC ACID 1MG TABLET PO SCH (08:45)
[2022-03-17] MEDS: NEBIVOLOL HCL 5 MG TABLET PO SCH (08:45)
[2022-03-17] MEDS: FOLIC ACID/VITAMIN B COMP W-C TABLET PO SCH (08:46)
[2022-03-17] MEDS ORDERED: ALLOPURINOL 100 MG TABLET PO NR (09:28)
[2022-03-17] MEDS ORDERED: CALCITRIOL 0.25MCG CAPSULE PO NR (09:29)
[2022-03-17] MEDS ORDERED: GALANTAMINE HBR 8MG ER CAPSULE 24HR PO NR (09:29)
[2022-03-17] MEDS ORDERED: NEBIVOLOL HCL 5 MG TABLET PO SCH (09:30)
[2022-03-17] MEDS ORDERED: LACTULOSE 20G/30ML UDC PO NR (09:30)
[2022-03-17] MEDS ORDERED: CLOPIDOGREL 75MG TABLET PO NR (09:35)
[2022-03-17 11:39] VITALS: BP 155/60
[2022-03-17 12:50] LABS: TOTAL IRON BINDING CAPACITY 128 ug/dL (250-450)
[2022-03-17] MEDS: HYDRALAZINE HCL 50MG TABLET PO SCH ×2 (14:28→22:23)
[2022-03-17 16:00] VITALS: BP 125/63
[2022-03-17 18:11] LABS: BG BASE EXCESS 0.5 mmol/L (-2.0-2.0); BG CARBOXYHEMOGLOBIN 0.3 % (0.5-1.5); BG FRACTION INSPIRED OXYGEN 28; BG HCO3 ACT 23.8 mmol/L (22.0-26.0); BG METHEMOGLOBIN 0.3 % (0.0-1.5); BG OXYHEMOGLOBIN 97.4 % (94.0-97.0); BG PCO2 32.8 mmHg (35.0-45.0); BG PH 7.479 (7.350-7.450); BG PO2 100.8 mmHg (75.0-100.0); BG SAMPLE SITE RIGHT BRACHIAL; BG TOTAL HEMOGLOBIN 8.4 g/dL (12.0-18.0); BG VENT MODE NASAL CANNULA
[2022-03-17 20:00] VITALS: BP 136/46
[2022-03-17] MEDS: LATANOPROST 0.005% OPHTH DROPS 2.5ML BOTHEYE SCH (21:53)
[2022-03-17] MEDS: TRAZODONE HCL 50MG TABLET PO SCH (21:53)
[2022-03-17] MEDS: EPOETIN ALFA-EPBX 4,000 UNIT/ML VIAL SUBCUT SCH (21:54)
[2022-03-17] MEDS: ATORVASTATIN CALCIUM 20MG TABLET PO SCH (21:55)
[2022-03-17 22:01] LABS: CREATINE KINASE 170 IU/L (26-192)
[2022-03-18] VITALS (7 sets, daily range): BP systolic 126–158; BP diastolic 51–71
[2022-03-18 00:25] LABS: CREATINE KINASE 150 IU/L (26-192)
[2022-03-18] MEDS: BLOOD SUGAR DIAGNOSTIC STRIP TEST SCH ×4 (06:01→21:02)
[2022-03-18] MEDS: HYDRALAZINE HCL 50MG TABLET PO SCH ×3 (06:13→21:02)
[2022-03-18 06:54] LABS: HEMATOCRIT. 24.4 % (36.0-48.0); HEMOGLOBIN. 8.1 g/dL (12.0-16.0); MEAN CORPUSCULAR HEMOGLOBIN 31.5 pg (28.0-32.0); MEAN CORPUSCULAR VOLUME 95.7 fL (81.0-99.0); MEAN PLATELET VOLUME 8.4 fl (7.4-10.4); PLATELET 202 x1000/uL (130-400); RED BLOOD CELL COUNT 2.56 mill/uL (4.2-5.4); RED CELL DISTRIBUTION WIDTH 16.5 % (11.6-14.6)
[2022-03-18] MEDS: INSULIN LISPRO 100 UNITS/ML SUBCUT SCH ×4 (07:47→21:03)
[2022-03-18 08:08] LABS: HBSAG SCREEN Negative (Negative)
[2022-03-18] MEDS: GALANTAMINE HBR 8MG ER CAPSULE 24HR PO SCH (08:47)
[2022-03-18] MEDS: FOLIC ACID 1MG TABLET PO SCH (08:48)
[2022-03-18] MEDS: FOLIC ACID/VITAMIN B COMP W-C TABLET PO SCH (08:48)
[2022-03-18] MEDS: CALCITRIOL 0.25MCG CAPSULE PO SCH (08:48)
[2022-03-18] MEDS: ALLOPURINOL 100 MG TABLET PO SCH (08:48)
[2022-03-18] MEDS: NEBIVOLOL HCL 5 MG TABLET PO SCH (08:53)
[2022-03-18] MEDS: LOSARTAN POTASSIUM 50 MG TABLET PO SCH (08:54)
[2022-03-18] MEDS: AMLODIPINE 10MG TABLET PO SCH (08:54)
[2022-03-18] MEDS ORDERED: CLOPIDOGREL 75MG TABLET PO SCH (09:00)
[2022-03-18] MEDS: BUDESONIDE 0.5MG/2ML NEB HHN SCH ×2 (09:19→21:30)
[2022-03-18] MEDS ORDERED: ENOXAPARIN 30MG/0.3ML SYR SUBCUT ONE (09:30)
[2022-03-18] MEDS: ENOXAPARIN 30MG/0.3ML SYR SUBCUT SCH (11:41)
[2022-03-18] MEDS: ACETAMINOPHEN 325MG TABLET PO PRN (15:36)
[2022-03-18 15:41] LABS: PLATELET ESTIMATE NORMAL
[2022-03-18 16:00] LABS: HEMATOCRIT 24.1 % (36.0-48.0); HEMOGLOBIN 7.8 g/dL (12.0-16.0)
[2022-03-18 16:24] LABS: CREATINE KINASE 101 IU/L (26-192)
[2022-03-18] MEDS: ATORVASTATIN CALCIUM 20MG TABLET PO SCH (21:01)
[2022-03-18] MEDS: LATANOPROST 0.005% OPHTH DROPS 2.5ML BOTHEYE SCH (21:01)
[2022-03-18] MEDS: TRAZODONE HCL 50MG TABLET PO SCH (21:01)
[2022-03-19] VITALS (7 sets, daily range): BP systolic 118–170; BP diastolic 48–77
[2022-03-19] MEDS: HYDRALAZINE HCL 50MG TABLET PO SCH ×3 (05:40→21:43)
[2022-03-19] MEDS: BLOOD SUGAR DIAGNOSTIC STRIP TEST SCH ×4 (07:59→21:43)
[2022-03-19] MEDS: INSULIN LISPRO 100 UNITS/ML SUBCUT SCH ×4 (07:59→21:00)
[2022-03-19] MEDS: FOLIC ACID 1MG TABLET PO SCH (08:51)
[2022-03-19] MEDS: ENOXAPARIN 30MG/0.3ML SYR SUBCUT SCH (08:51)
[2022-03-19] MEDS: CALCITRIOL 0.25MCG CAPSULE PO SCH (08:52)
[2022-03-19] MEDS: FOLIC ACID/VITAMIN B COMP W-C TABLET PO SCH (08:52)
[2022-03-19] MEDS: GALANTAMINE HBR 8MG ER CAPSULE 24HR PO SCH (08:54)
[2022-03-19] MEDS: ALLOPURINOL 100 MG TABLET PO SCH (08:55)
[2022-03-19] MEDS: AMLODIPINE 10MG TABLET PO SCH (09:00)
[2022-03-19] MEDS: NEBIVOLOL HCL 5 MG TABLET PO SCH (09:00)
[2022-03-19] MEDS: LOSARTAN POTASSIUM 50 MG TABLET PO SCH (09:00)
[2022-03-19] MEDS: ACETAMINOPHEN 325MG TABLET PO PRN ×2 (10:58→19:59)
[2022-03-19] MEDS: IPRATROPIUM/ALBUTEROL 0.5-3(2.5)MG/3ML NEB NEB PRN (15:57)
[2022-03-19 21:34] LABS: HEMATOCRIT 30.2 % (36.0-48.0)
[2022-03-19] MEDS: EPOETIN ALFA-EPBX 4,000 UNIT/ML VIAL SUBCUT SCH (21:42)
[2022-03-19] MEDS: ATORVASTATIN CALCIUM 20MG TABLET PO SCH (21:43)
[2022-03-19] MEDS: TRAZODONE HCL 50MG TABLET PO SCH (21:43)
[2022-03-19] MEDS: LATANOPROST 0.005% OPHTH DROPS 2.5ML BOTHEYE SCH (21:44)
[2022-03-20] VITALS: BP 159/54
[2022-03-20 04:00] VITALS: BP 145/85
[2022-03-20] MEDS: HYDRALAZINE HCL 50MG TABLET PO SCH ×3 (07:36→22:17)
[2022-03-20] MEDS: BLOOD SUGAR DIAGNOSTIC STRIP TEST SCH ×4 (07:40→21:38)
[2022-03-20 08:00] VITALS: BP 159/71
[2022-03-20] MEDS: INSULIN LISPRO 100 UNITS/ML SUBCUT SCH ×4 (08:10→21:00)
[2022-03-20] MEDS: FOLIC ACID 1MG TABLET PO SCH (08:44)
[2022-03-20] MEDS: FOLIC ACID/VITAMIN B COMP W-C TABLET PO SCH (08:44)
[2022-03-20] MEDS: LOSARTAN POTASSIUM 50 MG TABLET PO SCH (08:44)
[2022-03-20] MEDS: ALLOPURINOL 100 MG TABLET PO SCH (08:44)
[2022-03-20] MEDS: CALCITRIOL 0.25MCG CAPSULE PO SCH (08:44)
[2022-03-20] MEDS: GALANTAMINE HBR 8MG ER CAPSULE 24HR PO SCH (08:44)
[2022-03-20] MEDS: NEBIVOLOL HCL 5 MG TABLET PO SCH (08:44)
[2022-03-20] MEDS: ENOXAPARIN 30MG/0.3ML SYR SUBCUT SCH (08:44)
[2022-03-20] MEDS: AMLODIPINE 10MG TABLET PO SCH (08:44)
[2022-03-20] MEDS ORDERED: QUETIAPINE FUMARATE 25MG TABLET PO SCH ×2 (09:30→21:00)
[2022-03-20 12:00] VITALS: BP 128/71
[2022-03-20 16:00] VITALS: BP 137/83
[2022-03-20 18:19] LABS: HEMATOCRIT. 29.3 % (36.0-48.0); HEMOGLOBIN. 9.6 g/dL (12.0-16.0); MEAN CORPUSCULAR HEMOGLOBIN 31.1 pg (28.0-32.0); MEAN CORPUSCULAR VOLUME 94.7 fL (81.0-99.0); MEAN PLATELET VOLUME 7.9 fl (7.4-10.4); PLATELET 191 x1000/uL (130-400); RED BLOOD CELL COUNT 3.09 mill/uL (4.2-5.4); RED CELL DISTRIBUTION WIDTH 17.2 % (11.6-14.6)
[2022-03-20 19:20] LABS: PLATELET ESTIMATE NORMAL
[2022-03-20 20:00] VITALS: BP 169/66
[2022-03-20] MEDS: TRAZODONE HCL 50MG TABLET PO SCH (22:16)
[2022-03-20] MEDS: LATANOPROST 0.005% OPHTH DROPS 2.5ML BOTHEYE SCH (22:16)
[2022-03-20] MEDS: ATORVASTATIN CALCIUM 20MG TABLET PO SCH (22:17)
[2022-03-21] VITALS (7 sets, daily range): BP systolic 119–179; BP diastolic 52–73
[2022-03-21] MEDS: BLOOD SUGAR DIAGNOSTIC STRIP TEST SCH ×4 (06:01→21:00)
[2022-03-21] MEDS: HYDRALAZINE HCL 50MG TABLET PO SCH ×3 (07:06→21:04)
[2022-03-21] MEDS: INSULIN LISPRO 100 UNITS/ML SUBCUT SCH ×4 (07:44→21:00)
[2022-03-21] MEDS: LOSARTAN POTASSIUM 50 MG TABLET PO SCH (09:51)
[2022-03-21] MEDS: ALLOPURINOL 100 MG TABLET PO SCH (09:51)
[2022-03-21] MEDS: FOLIC ACID 1MG TABLET PO SCH (09:51)
[2022-03-21] MEDS: FOLIC ACID/VITAMIN B COMP W-C TABLET PO SCH (09:51)
[2022-03-21] MEDS: CALCITRIOL 0.25MCG CAPSULE PO SCH (09:52)
[2022-03-21] MEDS: AMLODIPINE 10MG TABLET PO SCH (09:54)
[2022-03-21] MEDS: GALANTAMINE HBR 8MG ER CAPSULE 24HR PO SCH (10:01)
[2022-03-21] MEDS: ENOXAPARIN 30MG/0.3ML SYR SUBCUT SCH (10:05)
[2022-03-21] MEDS: NEBIVOLOL HCL 5 MG TABLET PO SCH (10:18)
[2022-03-21] MEDS: SERTRALINE HCL 25MG TABLET PO SCH (11:15)
[2022-03-21] MEDS ORDERED: QUETIAPINE FUMARATE 25MG TABLET PO SCH (21:00)
[2022-03-21] MEDS: TRAZODONE HCL 50MG TABLET PO SCH (21:04)
[2022-03-21] MEDS: ATORVASTATIN CALCIUM 20MG TABLET PO SCH (21:04)
[2022-03-21] MEDS: EPOETIN ALFA-EPBX 4,000 UNIT/ML VIAL SUBCUT SCH (21:05)
[2022-03-21] MEDS: LATANOPROST 0.005% OPHTH DROPS 2.5ML BOTHEYE SCH (21:05)
[2022-03-22] VITALS: BP 160/66
[2022-03-22 04:00] VITALS: BP 142/55
[2022-03-22] MEDS: HYDRALAZINE HCL 50MG TABLET PO SCH ×4 (06:00→21:16)
[2022-03-22 08:00] VITALS: BP 112/75
[2022-03-22] MEDS: BLOOD SUGAR DIAGNOSTIC STRIP TEST SCH ×4 (08:04→21:00)
[2022-03-22] MEDS: INSULIN LISPRO 100 UNITS/ML SUBCUT SCH ×4 (08:04→21:00)
[2022-03-22] MEDS: FOLIC ACID/VITAMIN B COMP W-C TABLET PO SCH (09:17)
[2022-03-22] MEDS: FOLIC ACID 1MG TABLET PO SCH (09:17)
[2022-03-22] MEDS: ENOXAPARIN 30MG/0.3ML SYR SUBCUT SCH (09:17)
[2022-03-22] MEDS: AMLODIPINE 10MG TABLET PO SCH (09:17)
[2022-03-22] MEDS: LOSARTAN POTASSIUM 50 MG TABLET PO SCH (09:17)
[2022-03-22] MEDS: GALANTAMINE HBR 8MG ER CAPSULE 24HR PO SCH (09:17)
[2022-03-22] MEDS: SERTRALINE HCL 25MG TABLET PO SCH (09:18)
[2022-03-22] MEDS: NEBIVOLOL HCL 5 MG TABLET PO SCH (09:18)
[2022-03-22] MEDS: ALLOPURINOL 100 MG TABLET PO SCH (09:18)
[2022-03-22] MEDS: CALCITRIOL 0.25MCG CAPSULE PO SCH (09:18)
[2022-03-22] MEDS ORDERED: HALOPERIDOL LACTATE 5MG/ML VIAL IM NR (11:45)
[2022-03-22 12:00] VITALS: BP 149/61
[2022-03-22 16:00] VITALS: BP 144/63
[2022-03-22 16:41] LABS: HEMATOCRIT. 32.4 % (36.0-48.0); HEMOGLOBIN. 10.7 g/dL (12.0-16.0); MEAN CORPUSCULAR HEMOGLOBIN 31.5 pg (28.0-32.0); MEAN CORPUSCULAR VOLUME 95.1 fL (81.0-99.0); MEAN PLATELET VOLUME 8.5 fl (7.4-10.4); PLATELET 202 x1000/uL (130-400); RED CELL DISTRIBUTION WIDTH 16.9 % (11.6-14.6)
[2022-03-22 20:49] VITALS: BP 143/44
[2022-03-22] MEDS: ATORVASTATIN CALCIUM 20MG TABLET PO SCH (21:00)
[2022-03-22] MEDS: TRAZODONE HCL 50MG TABLET PO SCH (21:00)
[2022-03-22] MEDS: LATANOPROST 0.005% OPHTH DROPS 2.5ML BOTHEYE SCH (21:00)
[2022-03-22] MEDS: QUETIAPINE FUMARATE 25MG TABLET PO SCH (21:00)
[2022-03-22 22:31] LABS: PLATELET ESTIMATE NORMAL
[2022-03-23] VITALS (7 sets, daily range): BP systolic 134–169; BP diastolic 43–71
[2022-03-23] MEDS: LOSARTAN POTASSIUM 50 MG TABLET PO SCH (09:00)
[2022-03-23] MEDS: GALANTAMINE HBR 8MG ER CAPSULE 24HR PO SCH (09:00)
[2022-03-23] MEDS: FOLIC ACID/VITAMIN B COMP W-C TABLET PO SCH (09:00)
[2022-03-23] MEDS: SERTRALINE HCL 25MG TABLET PO SCH (09:00)
[2022-03-23] MEDS: ENOXAPARIN 30MG/0.3ML SYR SUBCUT SCH (09:01)
[2022-03-23] MEDS: AMLODIPINE 10MG TABLET PO SCH (09:01)
[2022-03-23] MEDS: NEBIVOLOL HCL 5 MG TABLET PO SCH (09:01)
[2022-03-23] MEDS: CALCITRIOL 0.25MCG CAPSULE PO SCH (09:01)
[2022-03-23] MEDS: FOLIC ACID 1MG TABLET PO SCH (09:01)
[2022-03-23] MEDS: ALLOPURINOL 100 MG TABLET PO SCH (09:03)
[2022-03-23] MEDS: HYDRALAZINE HCL 50MG TABLET PO SCH ×2 (16:18→21:18)
[2022-03-23] MEDS: BLOOD SUGAR DIAGNOSTIC STRIP TEST SCH (20:30)
[2022-03-23] MEDS: INSULIN LISPRO 100 UNITS/ML SUBCUT SCH (20:31)
[2022-03-23] MEDS: QUETIAPINE FUMARATE 25MG TABLET PO SCH (21:00)
[2022-03-23] MEDS: ATORVASTATIN CALCIUM 20MG TABLET PO SCH (21:17)
[2022-03-23] MEDS: LATANOPROST 0.005% OPHTH DROPS 2.5ML BOTHEYE SCH (21:17)
[2022-03-23] MEDS: TRAZODONE HCL 50MG TABLET PO SCH (21:18)
[2022-03-24 04:00] VITALS: BP 136/52
[2022-03-24] MEDS: HYDRALAZINE HCL 50MG TABLET PO SCH ×2 (05:48→14:55)
[2022-03-24] MEDS: BLOOD SUGAR DIAGNOSTIC STRIP TEST SCH ×3 (07:29→17:11)
[2022-03-24 08:00] VITALS: BP 117/67
[2022-03-24] MEDS: INSULIN LISPRO 100 UNITS/ML SUBCUT SCH ×3 (08:10→17:36)
[2022-03-24] MEDS: NEBIVOLOL HCL 5 MG TABLET PO SCH (09:33)
[2022-03-24] MEDS: CALCITRIOL 0.25MCG CAPSULE PO SCH (09:34)
[2022-03-24] MEDS: AMLODIPINE 10MG TABLET PO SCH (09:34)
[2022-03-24] MEDS: FOLIC ACID/VITAMIN B COMP W-C TABLET PO SCH (09:34)
[2022-03-24] MEDS: LOSARTAN POTASSIUM 50 MG TABLET PO SCH (09:34)
[2022-03-24] MEDS: ALLOPURINOL 100 MG TABLET PO SCH (09:34)
[2022-03-24] MEDS: FOLIC ACID 1MG TABLET PO SCH (09:34)
[2022-03-24] MEDS: SERTRALINE HCL 25MG TABLET PO SCH (09:34)
[2022-03-24] MEDS: GALANTAMINE HBR 8MG ER CAPSULE 24HR PO SCH (09:34)
[2022-03-24] MEDS: ENOXAPARIN 30MG/0.3ML SYR SUBCUT SCH (09:35)
[2022-03-24] MEDS ORDERED: ASPIRIN 81MG TABLET PO SCH (10:30)
[2022-03-24 12:00] VITALS: BP 137/37
[2022-03-24] MEDS: RISPERIDONE 0.5MG TABLET PO SCH ×2 (12:00→17:13)
[2022-03-24 13:10] VITALS: BP 137/37
[2022-03-24] MEDS ORDERED: AMOXICILLIN 250MG CAPSULE PO SCH (13:30)
[2022-03-24] MEDS ORDERED: AMPICILLIN SODIUM IM SCH (14:00)
[2022-03-24 16:00] VITALS: BP 130/47
[2022-03-24 17:48] VITALS: BP 130/47
[2022-03-25] MEDS ORDERED: SERTRALINE HCL 50MG TABLET PO SCH (09:00)
== END 2022-03-24 19:00 | DRG 291 ==
LOC: ER 05:49 → SUPCPDRO 08:59 → 7WST 09:16 → ENRESERV 10:44
PROVIDERS: ADMIT Internal Medicine Geriatric Medicine; ATTEND Internal Medicine Geriatric Medicine
PROC: 5A09357 Assistance with Respiratory Ventilation, Less than 24 Consecutive Hours, Continuous Positive Airway Pressure (ICD-10-PCS; 2022-03-15)
PROC: 5A1D70Z Performance of Urinary Filtration, Intermittent, Less than 6 Hours Per Day (ICD-10-PCS; principal; 2022-03-16)
PROC: 05H533Z Insertion of Infusion Device into Right Subclavian Vein, Percutaneous Approach (ICD-10-PCS; 2022-03-16)
PROC: B546ZZA Ultrasonography of Right Subclavian Vein, Guidance (ICD-10-PCS; 2022-03-16)
PROC: 5A1D70Z Performance of Urinary Filtration, Intermittent, Less than 6 Hours Per Day (ICD-10-PCS; 2022-03-17)
PROC: 5A1D70Z Performance of Urinary Filtration, Intermittent, Less than 6 Hours Per Day (ICD-10-PCS; 2022-03-19)
PROC: 30233N1 Transfusion of Nonautologous Red Blood Cells into Peripheral Vein, Percutaneous Approach (ICD-10-PCS; 2022-03-19)
DX: I13.2 Hypertensive heart and chronic kidney disease with heart failure and with stage 5 chronic kidney disease, or end stage renal disease (principal); G93.41 Metabolic encephalopathy; I50.33 Acute on chronic diastolic (congestive) heart failure; N18.6 End stage renal disease; J96.01 Acute respiratory failure with hypoxia; E44.1 Mild protein-calorie malnutrition; E87.20 Acidosis, unspecified; F01.52 Vascular dementia, unspecified severity, with psychotic disturbance; J44.1 Chronic obstructive pulmonary disease with (acute) exacerbation; J84.9 Interstitial pulmonary disease, unspecified; N39.0 Urinary tract infection, site not specified; I27.29 Other secondary pulmonary hypertension; I35.0 Nonrheumatic aortic (valve) stenosis; M48.02 Spinal stenosis, cervical region; D63.1 Anemia in chronic kidney disease; E11.22 Type 2 diabetes mellitus with diabetic chronic kidney disease; M48.061 Spinal stenosis, lumbar region without neurogenic claudication; M54.16 Radiculopathy, lumbar region; D72.829 Elevated white blood cell count, unspecified; B95.2 Enterococcus as the cause of diseases classified elsewhere; G47.33 Obstructive sleep apnea (adult) (pediatric); D72.825 Bandemia; E78.00 Pure hypercholesterolemia, unspecified; G89.29 Other chronic pain; F32.9 Major depressive disorder, single episode, unspecified; I25.10 Atherosclerotic heart disease of native coronary artery without angina pectoris; M10.9 Gout, unspecified; Z68.24 Body mass index [BMI] 24.0-24.9, adult; Z79.811 Long term (current) use of aromatase inhibitors; Z79.899 Other long term (current) drug therapy; Z91.81 History of falling; Z99.2 Dependence on renal dialysis; I25.2 Old myocardial infarction; Z90.710 Acquired absence of both cervix and uterus; Z95.0 Presence of cardiac pacemaker; Z95.5 Presence of coronary angioplasty implant and graft; Z87.441 Personal history of nephrotic syndrome; Z85.3 Personal history of malignant neoplasm of breast; Z86.73 Personal history of transient ischemic attack (TIA), and cerebral infarction without residual deficits; Z83.3 Family history of diabetes mellitus
CPT/HCPCS: 36415; 36573; 36600; 71045; 80048; 80053; 81003; 82270; 82375; 82550; 82805; 82962; 83036; 83540; 83550; 83605; 83735; 83880; 84100; 84425; 84443; 84484; 85014; 85018; 85025; 86705; 86709; 86803; 86850; 86900; 86920; 87077; 87186; 87340; 93005; 93306; 93970; 94640; 94660; 97162; 97530; 99291; C1725; C1893; J0696; J0885; J1630; J1644; J1650; J1815; J7626; P9016; A4315

== ENCOUNTER 2022-06-07 14:47 | Inpatient (IN) | payer MEDICARE, MEDICAID ==
[~2022-06-07] VITALS: Ht 157.5 cm; Wt 66.3 kg
[2022-06-07 17:32] LABS: HEMATOCRIT. 26.4 % (36.0-48.0); HEMOGLOBIN. 8.9 g/dL (12.0-16.0); MEAN CORPUSCULAR HEMOGLOBIN 32.7 pg (28.0-32.0); MEAN PLATELET VOLUME 7.9 fl (7.4-10.4); PLATELET 142 x1000/uL (130-400); RED BLOOD CELL COUNT 2.72 mill/uL (4.2-5.4); RED CELL DISTRIBUTION WIDTH 16.5 % (11.6-14.6)
[2022-06-07 17:41] LABS: CHLORIDE 99 mEq/L (98-107)
[2022-06-07 18:05] LABS: PLATELET ESTIMATE NORMAL
[2022-06-07] MEDS ORDERED: ASPIRIN 325MG TABLET PO ONE (21:45)
[2022-06-08] MEDS ORDERED: ACETAMINOPHEN 325MG TABLET PO ONE (01:00)
[2022-06-08] MEDS ORDERED: CLONIDINE 0.1MG TABLET PO SCH (09:30)
[2022-06-08 12:00] VITALS: BP 162/66
[2022-06-08 13:05] VITALS: BP 162/66
[2022-06-08] MEDS: INSULIN LISPRO 100 UNITS/ML SUBCUT SCH ×3 (14:15→21:00)
[2022-06-08 16:00] VITALS: BP 166/61
[2022-06-08] MEDS ORDERED: SERT-422 MT (17:50)
[2022-06-08] MEDS ORDERED: INSU100V37 SQ (17:50)
[2022-06-08] MEDS ORDERED: RISP0.5T65 MT (17:50)
[2022-06-08] MEDS ORDERED: GALA4SOL PO (17:50)
[2022-06-08] MEDS ORDERED: TRAZ-251 MT (17:50)
[2022-06-08] MEDS ORDERED: FOLI0.8T23 MT (17:50)
[2022-06-08] MEDS ORDERED: HYDR-4135 MT (17:50)
[2022-06-08] MEDS ORDERED: CHOL100036 (17:50)
[2022-06-08] MEDS ORDERED: AMIN30LI2 PO (17:50)
[2022-06-08] MEDS: AMLODIPINE 10MG TABLET PO SCH (18:17)
[2022-06-08] MEDS: HYDRALAZINE HCL 50MG TABLET PO SCH (18:17)
[2022-06-08] MEDS: ENOXAPARIN 30MG/0.3ML SYR SUBCUT SCH (18:18)
[2022-06-08 20:00] VITALS: BP 183/66
[2022-06-08] MEDS ORDERED: ZOLPIDEM TARTRATE 5MG TABLET PO PRN (21:30)
[2022-06-08] MEDS ORDERED: ACETAMINOPHEN 325MG TABLET PO PRN (21:30)
[2022-06-08] MEDS ORDERED: LORAZEPAM 2MG/ML CPJ IV PRN (21:30)
[2022-06-08] MEDS ORDERED: ONDANSETRON HCL 4MG/2ML INJ IV PRN (21:30)
[2022-06-08] MEDS ORDERED: DOCUSATE SODIUM 100MG CAPSULE PO PRN (21:30)
[2022-06-08] MEDS ORDERED: ENOXAPARIN 40MG/0.4ML SYR SUBCUT SCH (21:30)
[2022-06-08] MEDS: GABAPENTIN 100MG CAPSULE PO SCH (23:46)
[2022-06-08] MEDS: SODIUM CHLORIDE 0.9% INJ 3ML FLUSH IVF SCH (23:47)
[2022-06-09] VITALS (7 sets, daily range): BP systolic 114–179; BP diastolic 50–70
[2022-06-09 00:54] LABS: HEPATITIS B SURFACE ANTIGEN NEGATIVE
[2022-06-09 06:21] LABS: MEAN CORPUSCULAR HEMOGLOBIN 33.4 pg (28.0-32.0); MEAN CORPUSCULAR VOLUME 96.8 fL (81.0-99.0); PLATELET 127 x1000/uL (130-400); RED BLOOD CELL COUNT 2.69 mill/uL (4.2-5.4); RED CELL DISTRIBUTION WIDTH 16.5 % (11.6-14.6)
[2022-06-09] MEDS: GABAPENTIN 100MG CAPSULE PO SCH ×3 (06:37→21:24)
[2022-06-09] MEDS: CLONIDINE 0.1MG TABLET PO PRN ×2 (06:37→17:17)
[2022-06-09] MEDS: SEVELAMER CARBONATE 800 MG TABLET PO SCH ×4 (06:37→17:17)
[2022-06-09] MEDS: INSULIN LISPRO 100 UNITS/ML SUBCUT SCH ×4 (06:38→21:00)
[2022-06-09] MEDS: SODIUM CHLORIDE 0.9% INJ 3ML FLUSH IVF SCH ×3 (06:38→22:00)
[2022-06-09 07:40] LABS: PHOSPHORUS 5.2 mg/dL (2.5-4.9)
[2022-06-09] MEDS: HYDRALAZINE HCL 50MG TABLET PO SCH ×3 (08:37→17:17)
[2022-06-09] MEDS: AMLODIPINE 10MG TABLET PO SCH ×2 (08:37→21:24)
[2022-06-09] MEDS: ALLOPURINOL 100 MG TABLET PO SCH (08:38)
[2022-06-09] MEDS ORDERED: FOLIC ACID/VITAMIN B COMP W-C TABLET PO SCH (09:00)
[2022-06-09] MEDS ORDERED: ASPIRIN 81MG EC TABLET PO NR (09:30)
[2022-06-09] MEDS: NEBIVOLOL HCL 5 MG TABLET PO SCH (09:30)
[2022-06-09] MEDS: FOLIC ACID/VITAMIN B COMP W-C TABLET PO SCH (09:41)
[2022-06-09 13:20] LABS: VITAMIN B12 SERUM 832 pg/mL (211-911)
[2022-06-09 13:22] LABS: PLATELET ESTIMATE NORMAL
[2022-06-09] MEDS ORDERED: DEXTROSE 50% WATER 50ML SYRINGE IV PRN (15:00)
[2022-06-09] MEDS: ENOXAPARIN 30MG/0.3ML SYR SUBCUT SCH (15:04)
[2022-06-09] MEDS: BLOOD SUGAR DIAGNOSTIC STRIP TEST SCH ×2 (16:40→21:00)
[2022-06-09] MEDS ORDERED: RISPERIDONE 0.25MG TABLET PO SCH (17:00)
[2022-06-09] MEDS ORDERED: ATORVASTATIN CALCIUM 40MG TABLET PO SCH (21:00)
[2022-06-10] VITALS (13 sets, daily range): BP systolic 97–179; BP diastolic 52–96
[2022-06-10] MEDS: SODIUM CHLORIDE 0.9% INJ 3ML FLUSH IVF SCH ×2 (06:00→14:45)
[2022-06-10] MEDS: BLOOD SUGAR DIAGNOSTIC STRIP TEST SCH ×2 (06:07→11:40)
[2022-06-10] MEDS: INSULIN LISPRO 100 UNITS/ML SUBCUT SCH ×2 (06:21→12:10)
[2022-06-10] MEDS: SEVELAMER CARBONATE 800 MG TABLET PO SCH ×2 (06:22→14:44)
[2022-06-10] MEDS: GABAPENTIN 100MG CAPSULE PO SCH ×2 (06:22→14:44)
[2022-06-10 06:55] LABS: HEMATOCRIT. 28.8 % (36.0-48.0); HEMOGLOBIN. 9.2 g/dL (12.0-16.0); MEAN CORPUSCULAR HEMOGLOBIN 31.7 pg (28.0-32.0); RED BLOOD CELL COUNT 2.91 mill/uL (4.2-5.4); RED CELL DISTRIBUTION WIDTH 16.8 % (11.6-14.6)
[2022-06-10] MEDS ORDERED: ASPIRIN 81MG EC TABLET PO SCH (09:00)
[2022-06-10] MEDS: ALLOPURINOL 100 MG TABLET PO SCH (09:00)
[2022-06-10] MEDS: AMLODIPINE 10MG TABLET PO SCH (09:00)
[2022-06-10] MEDS: NEBIVOLOL HCL 5 MG TABLET PO SCH (09:00)
[2022-06-10] MEDS: HYDRALAZINE HCL 50MG TABLET PO SCH ×2 (09:00→14:48)
[2022-06-10] MEDS: FOLIC ACID/VITAMIN B COMP W-C TABLET PO SCH (09:00)
[2022-06-10 14:25] LABS: MEAN PLATELET VOLUME 9.5 fl (7.4-10.4); PLATELET 145 x1000/uL (130-400); PLATELET ESTIMATE NORMAL
[2022-06-10] MEDS: ENOXAPARIN 30MG/0.3ML SYR SUBCUT SCH (14:44)
[2022-06-10] MEDS: CLONIDINE 0.1MG TABLET PO PRN (16:24)
== END 2022-06-10 17:05 | DRG 64 ==
LOC: ER 15:28 → MICUSO 21:37 → 7EST 06-08 10:03
PROVIDERS: ADMIT Internal Medicine Geriatric Medicine; ATTEND Internal Medicine Geriatric Medicine
PROC: 5A1D70Z Performance of Urinary Filtration, Intermittent, Less than 6 Hours Per Day (ICD-10-PCS; principal; 2022-06-10)
DX: I63.9 Cerebral infarction, unspecified (principal); N18.6 End stage renal disease; E44.1 Mild protein-calorie malnutrition; I13.2 Hypertensive heart and chronic kidney disease with heart failure and with stage 5 chronic kidney disease, or end stage renal disease; I50.32 Chronic diastolic (congestive) heart failure; R29.810 Facial weakness; E78.00 Pure hypercholesterolemia, unspecified; E11.22 Type 2 diabetes mellitus with diabetic chronic kidney disease; E11.42 Type 2 diabetes mellitus with diabetic polyneuropathy; F01.50 Vascular dementia, unspecified severity, without behavioral disturbance, psychotic disturbance, mood disturbance, and anxiety; F91.9 Conduct disorder, unspecified; G89.29 Other chronic pain; H90.5 Unspecified sensorineural hearing loss; I35.0 Nonrheumatic aortic (valve) stenosis; M10.9 Gout, unspecified; J44.9 Chronic obstructive pulmonary disease, unspecified; M19.90 Unspecified osteoarthritis, unspecified site; M48.00 Spinal stenosis, site unspecified; Z85.3 Personal history of malignant neoplasm of breast; Z86.73 Personal history of transient ischemic attack (TIA), and cerebral infarction without residual deficits; Z90.710 Acquired absence of both cervix and uterus; Z92.3 Personal history of irradiation; Z95.0 Presence of cardiac pacemaker; Z99.2 Dependence on renal dialysis; Z83.3 Family history of diabetes mellitus; Z90.49 Acquired absence of other specified parts of digestive tract; Z79.4 Long term (current) use of insulin; G83.10 Monoplegia of lower limb affecting unspecified side
CPT/HCPCS: 36415; 71045; 80048; 80053; 82607; 82962; 83036; 83540; 83550; 83721; 83735; 83880; 84100; 84443; 84484; 85025; 86705; 86709; 86803; 87340; 90935; 93005; 99285; J1650; J1815

== ENCOUNTER 2022-06-16 14:49 | Emergency (ER) | payer MEDICARE, MEDICAID ==
[~2022-06-16] VITALS: Ht 157.5 cm; Wt 67.5 kg
[~2022-06-16 14:49] MED LIST changes: +AMIN30LI2 PO; +CHOL100036; +FOLI0.8T23 MT; +GALA4SOL PO; +HYDR-4135 MT; +INSU100V37 SQ; +RISP0.5T65 MT; +SERT-422 MT; +TRAZ-251 MT
[2022-06-16 19:16] LABS: BASOPHILS % 0.9 % (0.0-2.0); EOSINOPHILS % 5.3 % (0.0-5.0); HEMATOCRIT. 28.2 % (36.0-48.0); HEMOGLOBIN. 9.4 g/dL (12.0-16.0); LYMPHOCYTES % 18.8 % (20.0-50.0); MEAN CORPUSCULAR HEMOGLOBIN 32.5 pg (28.0-32.0); MEAN CORPUSCULAR VOLUME 97.3 fL (81.0-99.0); MEAN PLATELET VOLUME 8.4 fl (7.4-10.4); MONOCYTES % 12.2 % (2.0-8.0); NEUTROPHILS % 62.8 % (40.0-76.0); PLATELET 159 x1000/uL (130-400)
[2022-06-16 19:23] LABS: CHLORIDE 97 mEq/L (98-107)
[2022-06-16 19:25] LABS: PARTIAL THROMBOPLASTIN TIME 24.9 sec (23.4-31.0); PROTHROMBIN TIME 10.9 sec (9.6-11.0)
[2022-06-16 22:37] VITALS: BP 162/68
== END 2022-06-16 22:40 | disposition home or self-care (01) ==
LOC: ER 14:49
DX: T82.838A Hemorrhage due to vascular prosthetic devices, implants and grafts, initial encounter (principal); Y82.8 Other medical devices associated with adverse incidents; Y92.530 Ambulatory surgery center as the place of occurrence of the external cause; I12.0 Hypertensive chronic kidney disease with stage 5 chronic kidney disease or end stage renal disease; N18.6 End stage renal disease; Z99.2 Dependence on renal dialysis; Z88.8 Allergy status to other drugs, medicaments and biological substances; Z88.5 Allergy status to narcotic agent; Z79.899 Other long term (current) drug therapy
CPT/HCPCS: 36415; 80053; 85025; 99283

== ENCOUNTER 2022-08-11 15:18 | Inpatient (IN) | payer MEDICARE, MEDICAID ==
[~2022-08-11] VITALS: Ht 188 cm; Wt 68.9 kg
[2022-08-11] MEDS ORDERED: SODIUM CHLORIDE 0.9% 250 ML IV ONE (16:45)
[2022-08-11 18:08] LABS: HEMATOCRIT. 39.8 % (36.0-48.0); HEMOGLOBIN. 12.4 g/dL (12.0-16.0); MEAN CORPUSCULAR HEMOGLOBIN 29.2 pg (28.0-32.0); MEAN CORPUSCULAR VOLUME 93.8 fL (81.0-99.0); MEAN PLATELET VOLUME 8.3 fl (7.4-10.4); PLATELET 106 x1000/uL (130-400); RED BLOOD CELL COUNT 4.24 mill/uL (4.2-5.4); RED CELL DISTRIBUTION WIDTH 17.2 % (11.6-14.6)
[2022-08-11 18:21] LABS: CHLORIDE 98 mEq/L (98-107)
[2022-08-11 18:42] LABS: CREATINE KINASE 87 IU/L (26-192); ETHANOL BLOOD < 10 mg/dL
[2022-08-11 18:45] LABS: PLATELET ESTIMATE DECREASED
[2022-08-11] MEDS ORDERED: CLONIDINE 0.1MG TABLET PO PRN (20:45)
[2022-08-11] MEDS ORDERED: ZOLPIDEM TARTRATE 5MG TABLET PO PRN (20:45)
[2022-08-11] MEDS ORDERED: MAGNESIUM/ALUMINUM HYDROXIDE/SIMETHICONE 30ML UDC PO PRN (20:45)
[2022-08-11] MEDS ORDERED: ACETAMINOPHEN 325MG TABLET PO PRN (20:45)
[2022-08-11] MEDS ORDERED: IPRATROPIUM/ALBUTEROL 0.5-3(2.5)MG/3ML NEB HHN PRN (20:45)
[2022-08-11] MEDS ORDERED: LOSARTAN POTASSIUM 50 MG TABLET PO NR (21:15)
[2022-08-11] MEDS ORDERED: ASPIRIN 81MG EC TABLET PO NR (21:18)
[2022-08-11] MEDS: NEBIVOLOL HCL 5 MG TABLET PO SCH (22:00)
[2022-08-11] MEDS: LIDOCAINE HCL 4% CREAM 76GM TUBE TP SCH (22:00)
[2022-08-11] MEDS: ENOXAPARIN 30MG/0.3ML SYR SUBCUT SCH (22:00)
[2022-08-12] VITALS (7 sets, daily range): BP systolic 123–183; BP diastolic 60–85
[2022-08-12] MEDS: LIDOCAINE HCL 4% CREAM 76GM TUBE TP SCH ×3 (09:00→17:00)
[2022-08-12] MEDS: LOSARTAN POTASSIUM 50 MG TABLET PO SCH (09:00)
[2022-08-12] MEDS: ANASTROZOLE 1 MG TABLET PO SCH (09:00)
[2022-08-12] MEDS: FOLIC ACID/VITAMIN B COMP W-C TABLET PO SCH (09:00)
[2022-08-12] MEDS: NEBIVOLOL HCL 5 MG TABLET PO SCH (09:00)
[2022-08-12] MEDS: GALANTAMINE HBR 8MG ER CAPSULE 24HR PO SCH (09:00)
[2022-08-12] MEDS: SERTRALINE HCL 50MG TABLET PO SCH (09:00)
[2022-08-12] MEDS ORDERED: HALOPERIDOL LACTATE 5MG/ML VIAL IM ONE (09:00)
[2022-08-12] MEDS: CHOLECALCIFEROL (D3) 1000 UNIT TABLET PO SCH (09:00)
[2022-08-12] MEDS: DOCUSATE SODIUM 250MG CAPSULE PO SCH (09:00)
[2022-08-12] MEDS ORDERED: CLONIDINE HCL 0.2MG/24HR PATCH TD SCH (09:30)
[2022-08-12] MEDS ORDERED: OLANZAPINE 10 MG/VIAL IM NR (09:30)
[2022-08-12 10:58] LABS: VITAMIN B12 SERUM 647 pg/mL (211-911)
[2022-08-12] MEDS: DEXT 5%/0.45% NACL 1000ML 1,000 ML IV SCH (13:00)
[2022-08-12] MEDS: CEFTRIAXONE 1,000 MG in DEXTROSE 5% WATER 50 ML IV SCH (14:08)
[2022-08-12] MEDS ORDERED: THIAMINE HCL 100 MG in SODIUM CHLORIDE 0.9% 49 ML IV NR (16:00)
[2022-08-12] MEDS ORDERED: IPRATROPIUM BROMIDE (0.02%) 0.5MG/2.5ML NEB HHN PRN (17:30)
[2022-08-12] MEDS ORDERED: ALBUTEROL (0.083%) 2.5MG/3ML NEB HHN PRN (17:30)
[2022-08-12] MEDS: LATANOPROST 0.005% OPHTH DROPS 2.5ML BOTHEYE SCH ×2 (19:34→21:30)
[2022-08-12] MEDS: LEVOFLOXACIN 250MG TABLET PO SCH (19:35)
[2022-08-12] MEDS: HYDRALAZINE HCL 25MG TABLET PO SCH ×3 (19:35→19:37)
[2022-08-12] MEDS: RISPERIDONE 0.25MG TABLET PO SCH ×3 (19:36→22:26)
[2022-08-12 19:50] LABS: HEPATITIS B SURFACE ANTIGEN NEGATIVE
[2022-08-12] MEDS: ATORVASTATIN CALCIUM 20MG TABLET PO SCH (21:00)
[2022-08-12] MEDS: ENOXAPARIN 30MG/0.3ML SYR SUBCUT SCH (21:24)
[2022-08-12] MEDS: HYDRALAZINE 20MG/ML VIAL IV PRN (21:38)
[2022-08-13] VITALS (14 sets, daily range): BP systolic 137–163; BP diastolic 51–76
[2022-08-13] MEDS: HYDRALAZINE HCL 25MG TABLET PO SCH ×3 (05:25→21:11)
[2022-08-13] MEDS: RISPERIDONE 0.25MG TABLET PO SCH ×2 (05:25→18:09)
[2022-08-13] MEDS ORDERED: DEXTROSE 50% WATER 50ML SYRINGE IV PRN (05:30)
[2022-08-13] MEDS: BLOOD SUGAR DIAGNOSTIC STRIP TEST SCH ×4 (06:08→21:11)
[2022-08-13] MEDS: INSULIN LISPRO 100 UNITS/ML SUBCUT SCH ×4 (07:50→21:00)
[2022-08-13] MEDS: SERTRALINE HCL 50MG TABLET PO SCH (08:58)
[2022-08-13] MEDS: FOLIC ACID/VITAMIN B COMP W-C TABLET PO SCH (08:58)
[2022-08-13] MEDS: LOSARTAN POTASSIUM 50 MG TABLET PO SCH (08:58)
[2022-08-13] MEDS: CHOLECALCIFEROL (D3) 1000 UNIT TABLET PO SCH (08:58)
[2022-08-13] MEDS: DOCUSATE SODIUM 250MG CAPSULE PO SCH (08:59)
[2022-08-13] MEDS: ANASTROZOLE 1 MG TABLET PO SCH (09:00)
[2022-08-13] MEDS: GALANTAMINE HBR 8MG ER CAPSULE 24HR PO SCH (09:00)
[2022-08-13] MEDS: NEBIVOLOL HCL 5 MG TABLET PO SCH (09:00)
[2022-08-13] MEDS: LIDOCAINE HCL 4% CREAM 76GM TUBE TP SCH ×3 (09:08→17:06)
[2022-08-13] MEDS: LEVOFLOXACIN 250MG TABLET PO SCH (11:00)
[2022-08-13] MEDS: PHENYLEPHRINE/SHK LV/MO/PET RECTAL OINTMENT 57GM PR SCH ×2 (12:00→18:00)
[2022-08-13] MEDS: DEXT 5%/0.45% NACL 1000ML 1,000 ML IV SCH (13:01)
[2022-08-13] MEDS: CEFTRIAXONE 1,000 MG in DEXTROSE 5% WATER 50 ML IV SCH (14:57)
[2022-08-13] MEDS: ENOXAPARIN 30MG/0.3ML SYR SUBCUT SCH (21:11)
[2022-08-13] MEDS: LATANOPROST 0.005% OPHTH DROPS 2.5ML BOTHEYE SCH (21:11)
[2022-08-13] MEDS: ATORVASTATIN CALCIUM 20MG TABLET PO SCH (21:11)
[2022-08-14 00:43] VITALS: BP 167/75
[2022-08-14] MEDS: PHENYLEPHRINE/SHK LV/MO/PET RECTAL OINTMENT 57GM PR SCH ×4 (00:48→18:19)
[2022-08-14 04:00] VITALS: BP 174/68
[2022-08-14] MEDS: HYDRALAZINE HCL 25MG TABLET PO SCH (05:49)
[2022-08-14] MEDS: RISPERIDONE 0.25MG TABLET PO SCH ×2 (05:49→18:19)
[2022-08-14] MEDS: BLOOD SUGAR DIAGNOSTIC STRIP TEST SCH ×3 (05:49→18:12)
[2022-08-14 08:04] VITALS: BP 168/59
[2022-08-14] MEDS: INSULIN LISPRO 100 UNITS/ML SUBCUT SCH ×3 (08:10→18:20)
[2022-08-14] MEDS: DOCUSATE SODIUM 250MG CAPSULE PO SCH (08:33)
[2022-08-14] MEDS: FOLIC ACID/VITAMIN B COMP W-C TABLET PO SCH (08:33)
[2022-08-14] MEDS: SERTRALINE HCL 50MG TABLET PO SCH (08:33)
[2022-08-14] MEDS: CHOLECALCIFEROL (D3) 1000 UNIT TABLET PO SCH (08:33)
[2022-08-14] MEDS: NEBIVOLOL HCL 5 MG TABLET PO SCH (08:34)
[2022-08-14] MEDS: LOSARTAN POTASSIUM 50 MG TABLET PO SCH (08:34)
[2022-08-14] MEDS: GALANTAMINE HBR 8MG ER CAPSULE 24HR PO SCH (08:34)
[2022-08-14] MEDS: ANASTROZOLE 1 MG TABLET PO SCH (08:34)
[2022-08-14] MEDS: LIDOCAINE HCL 4% CREAM 76GM TUBE TP SCH ×3 (08:35→18:19)
[2022-08-14] MEDS: HYDRALAZINE HCL 50MG TABLET PO SCH ×2 (09:48→13:26)
[2022-08-14 09:54] VITALS: BP 142/68
[2022-08-14 11:51] VITALS: BP 179/74
[2022-08-14] MEDS: DEXT 5%/0.45% NACL 1000ML 1,000 ML IV SCH (12:03)
[2022-08-14] MEDS: CEFTRIAXONE 1,000 MG in DEXTROSE 5% WATER 50 ML IV SCH (13:26)
[2022-08-14 15:43] VITALS: BP 172/77
[2022-08-14] MEDS: HYDRALAZINE 20MG/ML VIAL IV PRN (15:49)
[2022-08-15] MEDS ORDERED: ANASTROZOLE 1 MG TABLET PO SCH (09:00)
== END 2022-08-14 19:00 | disposition home health service (06) | DRG 70 ==
LOC: ER 15:18 → EDBEDREQTM 21:47 → EDBEDREQ 21:47 → EDBEDREQSVC 21:47 → MICUSO 08-12 01:16 → 6EST 08-12 03:10 → 7WST 08-12 19:04
PROVIDERS: ADMIT Internal Medicine Geriatric Medicine; ATTEND Internal Medicine Geriatric Medicine
PROC: 5A1D70Z Performance of Urinary Filtration, Intermittent, Less than 6 Hours Per Day (ICD-10-PCS; principal; 2022-08-13)
DX: G93.40 Encephalopathy, unspecified (principal); N18.6 End stage renal disease; F03.918 Unspecified dementia, unspecified severity, with other behavioral disturbance; I13.2 Hypertensive heart and chronic kidney disease with heart failure and with stage 5 chronic kidney disease, or end stage renal disease; I50.30 Unspecified diastolic (congestive) heart failure; N39.0 Urinary tract infection, site not specified; E11.22 Type 2 diabetes mellitus with diabetic chronic kidney disease; F32.9 Major depressive disorder, single episode, unspecified; G89.29 Other chronic pain; I48.0 Paroxysmal atrial fibrillation; D63.8 Anemia in other chronic diseases classified elsewhere; J44.9 Chronic obstructive pulmonary disease, unspecified; H90.5 Unspecified sensorineural hearing loss; E78.00 Pure hypercholesterolemia, unspecified; I25.10 Atherosclerotic heart disease of native coronary artery without angina pectoris; M13.0 Polyarthritis, unspecified; K64.9 Unspecified hemorrhoids; M48.061 Spinal stenosis, lumbar region without neurogenic claudication; M10.9 Gout, unspecified; G47.33 Obstructive sleep apnea (adult) (pediatric); F91.9 Conduct disorder, unspecified; Z99.2 Dependence on renal dialysis; Z87.440 Personal history of urinary (tract) infections; Z85.3 Personal history of malignant neoplasm of breast; Z98.41 Cataract extraction status, right eye; Z87.441 Personal history of nephrotic syndrome; Z95.5 Presence of coronary angioplasty implant and graft; Z98.42 Cataract extraction status, left eye; Z90.710 Acquired absence of both cervix and uterus; Z95.0 Presence of cardiac pacemaker; Z86.73 Personal history of transient ischemic attack (TIA), and cerebral infarction without residual deficits; Z79.899 Other long term (current) drug therapy; Z79.811 Long term (current) use of aromatase inhibitors; Z79.4 Long term (current) use of insulin; Z74.01 Bed confinement status; Z88.5 Allergy status to narcotic agent
CPT/HCPCS: 36415; 71045; 73562; 80048; 80053; 80320; 82550; 82607; 82962; 83605; 83880; 84443; 84484; 85025; 86705; 86709; 86803; 87340; 90935; 92610; 93970; 99285; C1893; J0360; J0696; J1650; J1815; J3411; J3490; J7050; J7060; G0480

== ENCOUNTER 2022-08-30 12:52 | Emergency (ER) | payer MEDICARE, MEDICAID ==
[~2022-08-30] VITALS: Ht 167.6 cm; Wt 80.0 kg
[~2022-08-30 12:52] MED LIST changes: -AMLO10TA80 PO
[2022-08-30 14:49] LABS: HEMOGLOBIN. 10.4 g/dL (12.0-16.0); MEAN CORPUSCULAR HEMOGLOBIN 29.4 pg (28.0-32.0); MEAN CORPUSCULAR VOLUME 90.7 fL (81.0-99.0); MEAN PLATELET VOLUME 8.6 fl (7.4-10.4); PLATELET 136 x1000/uL (130-400); RED BLOOD CELL COUNT 3.53 mill/uL (4.2-5.4); RED CELL DISTRIBUTION WIDTH 17.7 % (11.6-14.6)
[2022-08-30 14:54] LABS: CHLORIDE 98 mEq/L (98-107)
[2022-08-30 15:05] LABS: INR 1.1; PROTHROMBIN TIME 11.7 sec (9.6-11.0)
[2022-08-30 15:22] LABS: PLATELET ESTIMATE NORMAL
[2022-08-30 22:00] VITALS: BP 190/79
[2022-08-30] MEDS ORDERED: POLY119P2 MT (22:58)
[2022-08-30] MEDS ORDERED: HYDRALAZINE HCL 25MG TABLET PO ONE (23:00)
== END 2022-08-30 23:46 | disposition home or self-care (01) ==
LOC: ER 13:22
DX: K59.00 Constipation, unspecified (principal); R10.12 Left upper quadrant pain; F32.9 Major depressive disorder, single episode, unspecified; I12.0 Hypertensive chronic kidney disease with stage 5 chronic kidney disease or end stage renal disease; E11.22 Type 2 diabetes mellitus with diabetic chronic kidney disease; N18.6 End stage renal disease; Z99.2 Dependence on renal dialysis; E78.00 Pure hypercholesterolemia, unspecified; Z79.899 Other long term (current) drug therapy
CPT/HCPCS: 36415; 71250; 74176; 80053; 85025; 93005; 99285

== ENCOUNTER 2022-09-07 13:48 | Inpatient (IN) | payer MEDICARE, MEDICAID ==
[~2022-09-07] VITALS: Ht 157.5 cm; Wt 62.6 kg
[~2022-09-07 13:48] MED LIST changes: +POLY119P2 MT
[2022-09-07] MEDS ORDERED: ASPIRIN 81MG TABLET PO ONE (14:45)
[2022-09-07 15:22] LABS: HEMATOCRIT. 30.3 % (36.0-48.0); HEMOGLOBIN. 9.9 g/dL (12.0-16.0); MEAN CORPUSCULAR HEMOGLOBIN 29.6 pg (28.0-32.0); MEAN CORPUSCULAR VOLUME 90.7 fL (81.0-99.0); MEAN PLATELET VOLUME 8.8 fl (7.4-10.4); PLATELET 144 x1000/uL (130-400); RED BLOOD CELL COUNT 3.34 mill/uL (4.2-5.4); RED CELL DISTRIBUTION WIDTH 17.8 % (11.6-14.6)
[2022-09-07 15:29] LABS: CHLORIDE 102 mEq/L (98-107)
[2022-09-07 15:33] LABS: INR 1.1; PARTIAL THROMBOPLASTIN TIME 25.1 sec (23.4-31.0); PROTHROMBIN TIME 11.8 sec (9.6-11.0)
[2022-09-07 16:36] LABS: PLATELET ESTIMATE NORMAL
[2022-09-07] MEDS: ASPIRIN 81MG TABLET PO NR ×2 (16:37→16:38)
[2022-09-07] MEDS ORDERED: CLONIDINE 0.1MG TABLET PO PRN (21:15)
[2022-09-07] MEDS ORDERED: ONDANSETRON HCL 4MG/2ML INJ IV PRN (21:15)
[2022-09-07] MEDS: HYDRALAZINE HCL 50MG TABLET PO SCH (23:49)
[2022-09-07] MEDS: HEPARIN 5000 UNITS/ML VIAL SUBCUT SCH (23:50)
[2022-09-07] MEDS: ACETAMINOPHEN 325MG TABLET PO PRN (23:50)
[2022-09-08] VITALS (13 sets, daily range): BP systolic 144–175; BP diastolic 58–100
[2022-09-08] MEDS: ACETAMINOPHEN 325MG TABLET PO PRN ×2 (00:30→01:00)
[2022-09-08] MEDS: HYDRALAZINE HCL 50MG TABLET PO SCH ×3 (06:20→17:00)
[2022-09-08 06:44] LABS: EOSINOPHILS % 4.9 % (0.0-5.0); HEMATOCRIT. 26.3 % (36.0-48.0); HEMOGLOBIN. 8.8 g/dL (12.0-16.0); LYMPHOCYTES % 29.1 % (20.0-50.0); MEAN CORPUSCULAR HEMOGLOBIN 30.3 pg (28.0-32.0); MEAN CORPUSCULAR VOLUME 90.6 fL (81.0-99.0); MEAN PLATELET VOLUME 9.1 fl (7.4-10.4); MONOCYTES % 12.2 % (2.0-8.0); NEUTROPHILS % 52.8 % (40.0-76.0); PLATELET 119 x1000/uL (130-400); RED BLOOD CELL COUNT 2.91 mill/uL (4.2-5.4)
[2022-09-08] MEDS: HEPARIN 5000 UNITS/ML VIAL SUBCUT SCH (08:15)
[2022-09-08] MEDS: NEBIVOLOL HCL 5 MG TABLET PO SCH (08:15)
[2022-09-08 11:21] LABS: HEPATITIS B SURFACE AB < 3.1 mIU/mL
[2022-09-08 11:31] LABS: HEPATITIS B SURFACE ANTIGEN NEGATIVE
[2022-09-08] MEDS ORDERED: LACTULOSE 20G/30ML UDC PO NR (12:15)
[2022-09-08] MEDS ORDERED: ENOXAPARIN 30MG/0.3ML SYR SUBCUT NR (12:30)
[2022-09-08] MEDS ORDERED: GALANTAMINE HBR 8MG ER CAPSULE 24HR PO NR (12:30)
[2022-09-08] MEDS: ALLOPURINOL 100 MG TABLET PO SCH (17:00)
[2022-09-08] MEDS ORDERED: RISPERIDONE 0.5MG TABLET PO SCH (21:00)
[2022-09-08] MEDS ORDERED: LATANOPROST 0.005% OPHTH DROPS 2.5ML BOTHEYE SCH (21:00)
[2022-09-08] MEDS ORDERED: ATORVASTATIN CALCIUM 10MG TABLET PO SCH (21:00)
[2022-09-08] MEDS ORDERED: TRAZODONE HCL 50MG TABLET PO SCH (21:00)
[2022-09-09] VITALS (7 sets, daily range): BP systolic 131–160; BP diastolic 58–81
[2022-09-09 06:16] LABS: HEMATOCRIT. 26.8 % (36.0-48.0); HEMOGLOBIN. 8.9 g/dL (12.0-16.0); MEAN CORPUSCULAR HEMOGLOBIN 29.7 pg (28.0-32.0); MEAN CORPUSCULAR VOLUME 89.8 fL (81.0-99.0); MEAN PLATELET VOLUME 9.1 fl (7.4-10.4); PLATELET 117 x1000/uL (130-400); RED BLOOD CELL COUNT 2.98 mill/uL (4.2-5.4); RED CELL DISTRIBUTION WIDTH 18.4 % (11.6-14.6)
[2022-09-09] MEDS ORDERED: PANTOPRAZOLE 40MG DR TABLET PO SCH (06:50)
[2022-09-09 08:11] LABS: TOTAL IRON BINDING CAPACITY 165 ug/dL (250-450)
[2022-09-09] MEDS: ALLOPURINOL 100 MG TABLET PO SCH ×2 (08:21→17:03)
[2022-09-09] MEDS: HYDRALAZINE HCL 50MG TABLET PO SCH ×3 (08:22→17:03)
[2022-09-09] MEDS: NEBIVOLOL HCL 5 MG TABLET PO SCH (08:22)
[2022-09-09 08:42] LABS: VITAMIN B12 SERUM 670 pg/mL (211-911)
[2022-09-09] MEDS ORDERED: FOLIC ACID/VITAMIN B COMP W-C TABLET PO SCH ×2 (09:00)
[2022-09-09] MEDS ORDERED: SODIUM BICARBONATE 650 MG TABLET PO SCH (09:00)
[2022-09-09] MEDS ORDERED: ENOXAPARIN 30MG/0.3ML SYR SUBCUT SCH (09:00)
[2022-09-09] MEDS ORDERED: GALANTAMINE HBR 8MG ER CAPSULE 24HR PO SCH (09:00)
[2022-09-09] MEDS ORDERED: NEBIVOLOL HCL 5 MG TABLET PO SCH (09:00)
[2022-09-09] MEDS ORDERED: SERTRALINE HCL 50MG TABLET PO SCH (09:00)
[2022-09-09] MEDS ORDERED: ANASTROZOLE 1 MG TABLET PO SCH (09:00)
[2022-09-09] MEDS ORDERED: DOCUSATE SODIUM 250MG CAPSULE PO SCH (09:00)
[2022-09-09] MEDS ORDERED: ASPIRIN 81MG EC TABLET PO SCH (10:30)
[2022-09-09] MEDS: ACETAMINOPHEN 325MG TABLET PO PRN (12:14)
[2022-09-09 13:39] LABS: PLATELET ESTIMATE DECREASED
[2022-09-09] MEDS ORDERED: EPOETIN ALFA-EPBX 4,000 UNIT/ML VIAL SUBCUT NR (21:00)
[2022-09-10] MEDS ORDERED: EPOETIN ALFA-EPBX 4,000 UNIT/ML VIAL SUBCUT SCH (21:00)
== END 2022-09-09 21:02 | disposition home or self-care (01) | DRG 291 ==
LOC: ER 13:51 → MICUSO 20:02 → EDBEDREQ 20:09 → EDBEDREQTM 20:09 → 3WST 09-08 01:10
PROVIDERS: ADMIT Internal Medicine Geriatric Medicine; ATTEND Internal Medicine Geriatric Medicine
PROC: 5A1D70Z Performance of Urinary Filtration, Intermittent, Less than 6 Hours Per Day (ICD-10-PCS; principal; 2022-09-08)
DX: I13.2 Hypertensive heart and chronic kidney disease with heart failure and with stage 5 chronic kidney disease, or end stage renal disease (principal); I50.23 Acute on chronic systolic (congestive) heart failure; N18.6 End stage renal disease; F03.918 Unspecified dementia, unspecified severity, with other behavioral disturbance; N17.9 Acute kidney failure, unspecified; K59.04 Chronic idiopathic constipation; E11.22 Type 2 diabetes mellitus with diabetic chronic kidney disease; E11.40 Type 2 diabetes mellitus with diabetic neuropathy, unspecified; H91.90 Unspecified hearing loss, unspecified ear; H40.9 Unspecified glaucoma; I25.10 Atherosclerotic heart disease of native coronary artery without angina pectoris; G89.29 Other chronic pain; M10.9 Gout, unspecified; D63.1 Anemia in chronic kidney disease; E78.5 Hyperlipidemia, unspecified; J44.9 Chronic obstructive pulmonary disease, unspecified; Z79.4 Long term (current) use of insulin; Z79.811 Long term (current) use of aromatase inhibitors; Z79.82 Long term (current) use of aspirin; Z79.84 Long term (current) use of oral hypoglycemic drugs; Z79.899 Other long term (current) drug therapy; Z87.441 Personal history of nephrotic syndrome; Z99.2 Dependence on renal dialysis; Z88.8 Allergy status to other drugs, medicaments and biological substances; Z90.710 Acquired absence of both cervix and uterus; Z95.0 Presence of cardiac pacemaker; Z85.3 Personal history of malignant neoplasm of breast; Z95.2 Presence of prosthetic heart valve; Z86.73 Personal history of transient ischemic attack (TIA), and cerebral infarction without residual deficits; Z95.5 Presence of coronary angioplasty implant and graft
CPT/HCPCS: 36415; 71045; 76700; 80048; 80053; 82607; 82746; 83540; 83550; 83880; 84484; 85025; 85379; 86706; 87340; 90935; 93005; 93306; 93970; 97162; 97530; 99285; J0885; J1644; J1650

== ENCOUNTER 2022-09-15 14:15 | Emergency (ER) | payer MEDICARE, MEDICAID ==
[~2022-09-15] VITALS: Ht 157.5 cm; Wt 70.0 kg
[2022-09-15 14:38] VITALS: BP 174/73
== END 2022-09-15 20:20 | disposition home or self-care (01) ==
LOC: ER 14:15
DX: T82.838A Hemorrhage due to vascular prosthetic devices, implants and grafts, initial encounter (principal); X58.XXXA Exposure to other specified factors, initial encounter; F03.90 Unspecified dementia, unspecified severity, without behavioral disturbance, psychotic disturbance, mood disturbance, and anxiety; E11.9 Type 2 diabetes mellitus without complications; I10 Essential (primary) hypertension; Z90.710 Acquired absence of both cervix and uterus
CPT/HCPCS: 99283

== ENCOUNTER 2022-09-21 09:35 | Emergency (ER) | payer MEDICARE, MEDICAID ==
[~2022-09-21] VITALS: Ht 167.6 cm; Wt 145.0 kg
[2022-09-21] MEDS ORDERED: IPRATROPIUM BROMIDE (0.02%) 0.5MG/2.5ML NEB HHN STA (09:55)
[2022-09-21] MEDS ORDERED: PREDNISONE 20MG TABLET PO STA (09:55)
[2022-09-21 10:00] VITALS: BP 162/65
[2022-09-21] MEDS: ALBUTEROL (0.083%) 2.5MG/3ML NEB HHN SCH ×3 (10:12→11:05)
[2022-09-21] MEDS ORDERED: FUROSEMIDE 40MG/4ML VIAL IVP ONE (10:30)
[2022-09-21 10:43] LABS: EOSINOPHILS % 3.8 % (0.0-5.0); HEMATOCRIT. 28.8 % (36.0-48.0); HEMOGLOBIN. 9.4 g/dL (12.0-16.0); LYMPHOCYTES % 23.2 % (20.0-50.0); MEAN CORPUSCULAR HEMOGLOBIN 30.7 pg (28.0-32.0); MEAN PLATELET VOLUME 8.6 fl (7.4-10.4); MONOCYTES % 14.3 % (2.0-8.0); NEUTROPHILS % 57.7 % (40.0-76.0); PLATELET 132 x1000/uL (130-400); RED BLOOD CELL COUNT 3.07 mill/uL (4.2-5.4); RED CELL DISTRIBUTION WIDTH 20.5 % (11.6-14.6)
[2022-09-21 10:52] LABS: CHLORIDE 102 mEq/L (98-107)
== END 2022-09-21 18:25 | disposition home or self-care (01) ==
LOC: ER 09:56 → CANBEDREQ 13:01 → ER 18:25
DX: J44.1 Chronic obstructive pulmonary disease with (acute) exacerbation (principal); I13.2 Hypertensive heart and chronic kidney disease with heart failure and with stage 5 chronic kidney disease, or end stage renal disease; E11.22 Type 2 diabetes mellitus with diabetic chronic kidney disease; N18.6 End stage renal disease; I50.9 Heart failure, unspecified; Z99.2 Dependence on renal dialysis; Z90.710 Acquired absence of both cervix and uterus; Z95.0 Presence of cardiac pacemaker; Z90.89 Acquired absence of other organs; Z79.4 Long term (current) use of insulin; Z88.5 Allergy status to narcotic agent; Z88.8 Allergy status to other drugs, medicaments and biological substances
CPT/HCPCS: 36415; 71045; 80053; 83880; 84484; 85025; 93005; 94640; 96374; 99285; J1940; J7512

== ENCOUNTER 2022-09-28 15:51 | Emergency (ER) | payer MEDICARE, MEDICAID ==
[~2022-09-28] VITALS: Ht 162.6 cm; Wt 75.0 kg
[2022-09-28 18:27] LABS: BASOPHILS % 0.8 % (0.0-2.0); EOSINOPHILS % 2.3 % (0.0-5.0); HEMATOCRIT. 27.6 % (36.0-48.0); LYMPHOCYTES % 21.1 % (20.0-50.0); MEAN CORPUSCULAR HEMOGLOBIN 30.9 pg (28.0-32.0); MEAN CORPUSCULAR VOLUME 95.1 fL (81.0-99.0); MEAN PLATELET VOLUME 8.8 fl (7.4-10.4); MONOCYTES % 13.1 % (2.0-8.0); NEUTROPHILS % 62.7 % (40.0-76.0); PLATELET 137 x1000/uL (130-400); RED BLOOD CELL COUNT 2.91 mill/uL (4.2-5.4); RED CELL DISTRIBUTION WIDTH 20.2 % (11.6-14.6)
[2022-09-28 18:31] LABS: CHLORIDE 102 mEq/L (98-107)
[2022-09-28 19:00] LABS: ETHANOL BLOOD < 10 mg/dL
[2022-09-28] MEDS ORDERED: LIDOCAINE 5% PATCH TOP ONE (19:30)
[2022-09-28] MEDS ORDERED: LIDO700A15 TP (19:33)
[2022-09-28 19:47] VITALS: BP 162/73
== END 2022-09-29 01:43 | disposition home or self-care (01) ==
LOC: ER 15:51
DX: I12.0 Hypertensive chronic kidney disease with stage 5 chronic kidney disease or end stage renal disease (principal); E11.22 Type 2 diabetes mellitus with diabetic chronic kidney disease; N18.6 End stage renal disease; Z99.2 Dependence on renal dialysis; Z90.49 Acquired absence of other specified parts of digestive tract; Z90.710 Acquired absence of both cervix and uterus; Z95.0 Presence of cardiac pacemaker; Z85.9 Personal history of malignant neoplasm, unspecified
CPT/HCPCS: 36415; 71045; 80053; 80320; 82962; 83605; 83880; 84484; 85025; 93005; 99285; G0480

== ENCOUNTER 2022-10-14 14:51 | Emergency (ER) | payer MEDICARE, MEDICAID ==
[~2022-10-14] VITALS: Ht 157.5 cm; Wt 50.0 kg
[~2022-10-14 14:51] MED LIST changes: +LIDO700A15 TP
[2022-10-14 17:32] LABS: HEMATOCRIT 26.5 % (36.0-48.0); HEMOGLOBIN 8.7 g/dL (12.0-16.0); MEAN CORPUSCULAR HEMOGLOBIN 31.5 pg (28.0-32.0); MEAN CORPUSCULAR VOLUME 95.7 fL (81.0-99.0); PLATELET 158 x1000/uL (130-400); RED BLOOD CELL COUNT 2.77 mill/uL (4.2-5.4)
[2022-10-14 17:38] LABS: CHLORIDE 103 mEq/L (98-107)
[2022-10-14 17:45] VITALS: BP 165/78
[2022-10-14] MEDS ORDERED: DOCUSATE SODIUM 100MG CAPSULE PO ONE (17:45)
== END 2022-10-14 22:27 | disposition home or self-care (01) ==
LOC: ER 14:51
DX: M25.562 Pain in left knee (principal); I10 Essential (primary) hypertension; E11.9 Type 2 diabetes mellitus without complications; Z88.5 Allergy status to narcotic agent; Z88.8 Allergy status to other drugs, medicaments and biological substances; Z79.899 Other long term (current) drug therapy; Z90.49 Acquired absence of other specified parts of digestive tract; W18.30XA Fall on same level, unspecified, initial encounter; Y93.89 Activity, other specified; Y92.89 Other specified places as the place of occurrence of the external cause; Y99.8 Other external cause status
CPT/HCPCS: 36415; 71045; 73562; 80053; 84484; 85027; 93005; 99285

== ENCOUNTER 2023-09-29 17:19 | Inpatient (IN) | payer MEDICARE, MEDICAID ==
[~2023-09-29] VITALS: Ht 309.9 cm; Wt 59.9 kg
[~2023-09-29 17:19] MED LIST changes: -HYDR-4135 MT; +HYDR50TA40 MT; -INSU100V37 SQ; +INSU100V43 SQ; -RISP0.5T65 MT; +RISP0.5T79 MT; +TRAV2.5D OP; -TRAV2.5D9 OP
[2023-09-29 19:30] LABS: HEMATOCRIT. 26.8 % (36.0-48.0); HEMOGLOBIN. 8.8 g/dL (12.0-16.0); MEAN CORPUSCULAR HEMOGLOBIN 31.6 pg (28.0-32.0); MEAN CORPUSCULAR HGB CONC 32.8 g/dL (31.0-37.0); MEAN CORPUSCULAR VOLUME 96.2 fL (81.0-99.0); MEAN PLATELET VOLUME 9.8 fl (7.4-10.4); PLATELET 138 x1000/uL (130-400); RED BLOOD CELL COUNT 2.78 mill/uL (4.2-5.4); RED CELL DISTRIBUTION WIDTH 17.3 % (11.6-14.6); WHITE BLOOD COUNT 4.9 x1000/uL (4.5-11.0)
[2023-09-29 19:32] LABS: DIFFERENTIAL COMMENT 1
[2023-09-29 19:37] LABS: CHLORIDE 98 mEq/L (98-107); POTASSIUM 3.4 mEq/L (3.5-5.1); SODIUM 139 mEq/L (136-145)
[2023-09-29 19:38] LABS: CARBON DIOXIDE 30 mEq/L (21-32)
[2023-09-29 19:43] LABS: GLUCOSE 83 mg/dL (70-105); UREA NITROGEN BLOOD 41 mg/dL (9-23)
[2023-09-29 19:45] LABS: ALANINE AMINOTRANSFERASE 25 IU/L (10-49); ALBUMIN 3.9 g/dL (3.2-4.8); ASPARTATE AMINOTRANSFERASE 28 IU/L (<34); BILIRUBIN TOTAL 0.2 mg/dL (0.1-1.0); CREATININE 8.5 mg/dL (0.6-1.0); PROTEIN TOTAL 8.2 g/dL (6.0-8.3)
[2023-09-29 19:50] LABS: INR 1.1; PROTHROMBIN TIME 11.9 sec (9.6-11.0)
[2023-09-29 19:58] LABS: ANISOCYTOSIS 1+; HYPOCHROMASIA 1+; OVALOCYTES 1+; PLATELET ESTIMATE NORMAL
[2023-09-30] VITALS (15 sets, daily range): BP systolic 108–144; BP diastolic 39–66; PULSE 59–71; RESP 16–19; TEMP 97.5–97.9
[2023-09-30] MEDS ORDERED: IPRATROPIUM/ALBUTEROL 0.5-3(2.5)MG/3ML NEB HHN PRN (08:30)
[2023-09-30] MEDS ORDERED: DOCUSATE SODIUM 100MG CAPSULE PO PRN (08:30)
[2023-09-30] MEDS ORDERED: CLONIDINE 0.1MG TABLET PO PRN (08:30)
[2023-09-30] MEDS ORDERED: ONDANSETRON HCL 4MG/2ML INJ IV PRN (08:30)
[2023-09-30] MEDS ORDERED: GUAIFENESIN 200MG/10ML SUGAR FREE UDC PO PRN (08:30)
[2023-09-30] MEDS ORDERED: MAGNESIUM/ALUMINUM HYDROXIDE/SIMETHICONE 30ML UDC PO PRN (08:30)
[2023-09-30] MEDS ORDERED: ACETAMINOPHEN 325MG TABLET PO PRN (08:30)
[2023-09-30] MEDS ORDERED: LORAZEPAM 0.5MG TABLET PO PRN (08:30)
[2023-09-30] MEDS ORDERED: NA PHOS,M-B/NA PHOS,DI-BA ENEMA 118ML PR PRN (08:30)
[2023-09-30] MEDS: FOLIC ACID/VITAMIN B COMP W-C TABLET PO SCH (10:55)
[2023-09-30] MEDS: POTASSIUM CHLORIDE 20MEQ TABLET SR PO NR (10:55)
[2023-09-30] MEDS: NEBIVOLOL HCL 5 MG TABLET PO SCH (11:02)
[2023-09-30] MEDS: GALANTAMINE HBR 8MG ER CAPSULE 24HR PO NR (12:03)
[2023-09-30 16:15] LABS: IRON 43 ug/dL (50-170)
[2023-09-30 16:17] LABS: CREATINE KINASE 115 IU/L (34-145)
[2023-09-30 16:18] LABS: TOTAL IRON BINDING CAPACITY 162 ug/dl (250-425)
[2023-09-30 16:21] LABS: THYROID STIMULATING HORMONE 0.53 uIU/mL (0.55-4.78)
[2023-09-30 16:28] LABS: TROPONIN I HIGH SENSITIVITY 3374 ng/L (3.0-34)
[2023-09-30 16:53] LABS: HEPATITIS A AB IGM NEGATIVE (Negative); HEPATITIS B CORE AB IGM NEGATIVE (Negative)
[2023-09-30 16:54] LABS: HEPATITIS C AB NON REACTIVE (Neg) (Negative)
[2023-09-30 17:00] LABS: HEPATITIS B SURFACE ANTIGEN REACTIVE PEND CONFIR (Negative)
[2023-09-30] MEDS: ALLOPURINOL 100 MG TABLET PO SCH (17:36)
[2023-09-30] MEDS: ACETAMINOPHEN 325MG TABLET PO PRN (17:36)
[2023-09-30] MEDS: TRAZODONE HCL 50MG TABLET PO SCH (21:31)
[2023-09-30] MEDS: ATORVASTATIN CALCIUM 20MG TABLET PO SCH (21:31)
[2023-09-30] MEDS: LATANOPROST 0.005% OPHTH DROPS 2.5ML BOTHEYE SCH (21:32)
[2023-10-01] VITALS (7 sets, daily range): BP systolic 100–114; BP diastolic 36–53; PULSE 59–60; RESP 18–20; TEMP 96–98.4; O2SAT 99
[2023-10-01 00:07] LABS: CREATINE KINASE 128 IU/L (34-145)
[2023-10-01 06:58] LABS: HEMATOCRIT. 28.2 % (36.0-48.0); HEMOGLOBIN. 9.2 g/dL (12.0-16.0); MEAN CORPUSCULAR HGB CONC 32.8 g/dL (31.0-37.0); MEAN CORPUSCULAR VOLUME 94.4 fL (81.0-99.0); MEAN PLATELET VOLUME 9.8 fl (7.4-10.4); PLATELET 127 x1000/uL (130-400); RED BLOOD CELL COUNT 2.98 mill/uL (4.2-5.4); RED CELL DISTRIBUTION WIDTH 17.1 % (11.6-14.6); WHITE BLOOD COUNT 5.8 x1000/uL (4.5-11.0)
[2023-10-01 07:09] LABS: CHLORIDE 96 mEq/L (98-107); POTASSIUM 3.8 mEq/L (3.5-5.1); SODIUM 135 mEq/L (136-145)
[2023-10-01 07:10] LABS: CARBON DIOXIDE 27 mEq/L (21-32)
[2023-10-01 07:11] LABS: DIFFERENTIAL COMMENT 1
[2023-10-01 07:15] LABS: GLUCOSE 85 mg/dL (70-105); UREA NITROGEN BLOOD 38 mg/dL (9-23)
[2023-10-01 07:17] LABS: ALANINE AMINOTRANSFERASE 19 IU/L (10-49); ALBUMIN 3.7 g/dL (3.2-4.8); ASPARTATE AMINOTRANSFERASE 21 IU/L (<34); BILIRUBIN TOTAL 0.3 mg/dL (0.1-1.0); PROTEIN TOTAL 7.6 g/dL (6.0-8.3)
[2023-10-01 07:19] LABS: T4 FREE 1.19 ng/dL (0.89-1.76); THYROID STIMULATING HORMONE 0.57 uIU/mL (0.55-4.78)
[2023-10-01] MEDS: GALANTAMINE HBR 8MG ER CAPSULE 24HR PO SCH (08:53)
[2023-10-01] MEDS: SODIUM BICARBONATE 650 MG TABLET PO SCH (08:54)
[2023-10-01] MEDS: DOCUSATE SODIUM 250MG CAPSULE PO SCH (08:54)
[2023-10-01] MEDS ORDERED: NEBI5TAB2 PO (09:40)
[2023-10-01] MEDS ORDERED: TOPUD PO (09:40)
[2023-10-01] MEDS ORDERED: ATOR20TA PO (09:40)
[2023-10-01] MEDS ORDERED: NEPVIT PO (09:40)
[2023-10-01] MEDS ORDERED: XALAO BOTHEYE (09:40)
[2023-10-01] MEDS ORDERED: ANAS1TAB49 PO (09:40)
[2023-10-01] MEDS ORDERED: ALLO100T PO (09:40)
[2023-10-01 10:14] LABS: BG CARBOXYHEMOGLOBIN 0.5 % (0.5-1.5); BG DEOXYHEMOGLOBIN 2.5 % (0.0-5.0); BG FRACTION INSPIRED OXYGEN 21; BG HCO3 ACT 25.4 mmol/L (22.0-26.0); BG METHEMOGLOBIN 0.3 % (0.0-1.5); BG OXYGEN SATURATION 97.5 % (92.0-98.5); BG OXYHEMOGLOBIN 96.7 % (94.0-97.0); BG PCO2 34.9 mmHg (35.0-45.0); BG PO2 99.3 mmHg (75.0-100.0); BG SAMPLE SITE RIGHT BRACHIAL; BG TOTAL HEMOGLOBIN 9.6 g/dL (12.0-18.0); BG VENT MODE ROOM AIR
[2023-10-01] MEDS ORDERED: NEBI5TAB12 PO (10:21)
[2023-10-01] MEDS ORDERED: LEVO50TA8 PO (10:21)
[2023-10-01] MEDS ORDERED: GALANTAMINE 16 MG PO (10:21)
[2023-10-01] MEDS ORDERED: TRAM50TA3 PO (10:21)
[2023-10-01] MEDS ORDERED: LOSA50TA41 PO (10:21)
[2023-10-01] MEDS ORDERED: LEVE250T2 PO (10:21)
[2023-10-01] MEDS ORDERED: CITA10TA88 PO (10:21)
[2023-10-01] MEDS ORDERED: HYDR50TA39 PO (10:21)
[2023-10-01] MEDS: ANASTROZOLE 1 MG TABLET PO SCH (13:37)
[2023-10-01 15:58] LABS: ANISOCYTOSIS 1+; PLATELET ESTIMATE SLIGHTLY DECREASED
[2023-10-02 13:07] LABS: HBSAG SCREEN Negative (Negative)
== END 2023-10-01 22:55 | disposition home or self-care (01) | DRG 70 ==
LOC: ER 17:19 → 8WST 09-30 03:52
PROVIDERS: ADMIT Internal Medicine Geriatric Medicine; ATTEND Internal Medicine Geriatric Medicine
PROC: 5A1D70Z Performance of Urinary Filtration, Intermittent, Less than 6 Hours Per Day (ICD-10-PCS; principal; 2023-09-30)
DX: G93.41 Metabolic encephalopathy (principal); N18.6 End stage renal disease; F02.818 Dementia in other diseases classified elsewhere, unspecified severity, with other behavioral disturbance; I12.0 Hypertensive chronic kidney disease with stage 5 chronic kidney disease or end stage renal disease; K92.2 Gastrointestinal hemorrhage, unspecified; E87.6 Hypokalemia; D63.1 Anemia in chronic kidney disease; E03.9 Hypothyroidism, unspecified; E11.22 Type 2 diabetes mellitus with diabetic chronic kidney disease; E11.40 Type 2 diabetes mellitus with diabetic neuropathy, unspecified; E78.5 Hyperlipidemia, unspecified; G30.9 Alzheimer's disease, unspecified; G47.33 Obstructive sleep apnea (adult) (pediatric); I25.10 Atherosclerotic heart disease of native coronary artery without angina pectoris; M10.9 Gout, unspecified; J44.89 Other specified chronic obstructive pulmonary disease; H54.7 Unspecified visual loss; H40.9 Unspecified glaucoma; Z95.5 Presence of coronary angioplasty implant and graft; Z99.2 Dependence on renal dialysis; Z85.3 Personal history of malignant neoplasm of breast; Z90.710 Acquired absence of both cervix and uterus; Z95.0 Presence of cardiac pacemaker; Z95.2 Presence of prosthetic heart valve; Z86.73 Personal history of transient ischemic attack (TIA), and cerebral infarction without residual deficits; Z79.811 Long term (current) use of aromatase inhibitors; Z79.4 Long term (current) use of insulin; Z79.899 Other long term (current) drug therapy; Z90.49 Acquired absence of other specified parts of digestive tract
CPT/HCPCS: 36415; 36600; 71045; 80053; 82375; 82550; 82805; 83036; 83540; 83550; 84145; 84439; 84443; 84484; 85025; 86705; 86709; 87340; 90935; 93005; 97167; 97530; 99285

== ENCOUNTER 2024-11-03 18:05 | Emergency (ER) | payer MEDICARE, MEDICAID ==
[~2024-11-03] VITALS: Ht 157.5 cm; Wt 73.5 kg
[~2024-11-03 18:05] MED LIST changes: +ALBU90AE INH; +ANAS1TAB49 PO; -ANAS1TAB7 PO; +ASPI-1497 MT; -CHOL100036; +CITA10TA88 PO; -CLON1PAT11 TP; +CLOP-31 MT; -CYCL10TA21 MT; -FOLI0.8T23 MT; +FOLI0.8T53 PO; -GABA-529 PO; -GALA4SOL PO; +GALANTAMINE 16 MG PO; +HYDR50TA39 PO; -HYDR50TA40 MT; -INSU100V43 SQ; +LATA2.5D14 EACHEYE; +LEVE250T2 PO; +LEVO50TA8 PO; -LIDO700A15 TP; +LIP40 MT; +LOSA50TA41 PO; -NEBI10TA2 PO; +NEBI5TAB9 PO; -POLY119P2 MT; -RISP0.5T79 MT; -SERT-422 MT; +SEVE800T8 MT; -SIMV-46 PO; +TOPUD PO; -TRAV2.5D OP; -TRAZ-251 MT; +XALAO BOTHEYE
[2024-11-03 18:14] VITALS: O2SAT 99
[2024-11-03 19:53] LABS: AMMONIA < 17 uMol/L (<32)
[2024-11-03 19:59] VITALS: TEMP 36.8
[2024-11-03 20:45] LABS: DIFFERENTIAL COMMENT 1; HEMATOCRIT. 32.6 % (36.0-48.0); HEMOGLOBIN. 10.3 g/dL (12.0-16.0); MEAN CORPUSCULAR HEMOGLOBIN 31.9 pg (28.0-32.0); MEAN CORPUSCULAR HGB CONC 31.6 g/dL (31.0-37.0); MEAN CORPUSCULAR VOLUME 100.9 fL (81.0-99.0); MEAN PLATELET VOLUME 8.8 fl (7.4-10.4); PLATELET 121 x1000/uL (130-400); RED BLOOD CELL COUNT 3.23 mill/uL (4.2-5.4); WHITE BLOOD COUNT 4.5 x1000/uL (4.5-11.0)
[2024-11-03 21:05] LABS: CHLORIDE 98 mEq/L (98-107); POTASSIUM 4.3 mEq/L (3.5-5.1); SODIUM 137 mEq/L (136-145)
[2024-11-03 21:06] LABS: CALCIUM 8.8 mg/dL (8.7-10.4); CARBON DIOXIDE 32 mEq/L (21-32); PLATELET ESTIMATE DECREASED
[2024-11-03 21:11] LABS: GLUCOSE 114 mg/dL (70-105)
[2024-11-03 21:12] LABS: ETHANOL BLOOD < 10 mg/dL (<10); UREA NITROGEN BLOOD 27 mg/dL (9-23)
[2024-11-03 21:13] LABS: ACETAMINOPHEN < 2 ug/mL (10-30)
[2024-11-03 21:48] LABS: CREATININE 7.4 mg/dL (0.6-1.0)
[2024-11-03 21:58] VITALS: BP 150/57; PULSE 63; RESP 17; O2SAT 100
[2024-11-04 01:36] LABS: CLARITY URINE CLOUDY (CLEAR); COLOR URINE YELLOW (YELLOW); PH URINE 8.5 (4.5-8.0); SPECIFIC GRAVITY URINE 1.015 (1.005-1.030)
[2024-11-04 01:37] LABS: GLUCOSE URINE NEGATIVE (NEGATIVE); KETONES URINE NEGATIVE (NEGATIVE); LEUKOCYTE ESTERASE URINE 2+ (NEGATIVE); NITRITE URINE NEGATIVE (NEGATIVE); OCCULT BLOOD URINE 1+ (NEGATIVE); PROTEIN URINE 2+ (NEGATIVE); UROBILINOGEN URINE 0.2 E.U./dL (0.2-1.0)
[2024-11-04 01:41] LABS: SQUAMOUS EPITHELIAL CELL URINE FEW /lpf (RARE/1+)
[2024-11-04 01:42] LABS: RBC URINE 0-2 /hpf (0-2); WBC URINE 15-25 /hpf (0-2)
[2024-11-04 01:44] LABS: BACTERIA URINE TRACE
[2024-11-04 02:10] LABS: *AMPHETAMINES SCREEN URINE NEGATIVE (NEGATIVE); *BARBITURATES SCREEN URINE NEGATIVE (NEGATIVE); *BENZODIAZEPINES SCREEN URINE NEGATIVE (NEGATIVE); *COCAINE SCREEN URINE NEGATIVE (NEGATIVE); CANNABINOID URINE SCREEN NEGATIVE (NEGATIVE); ECSTASY MDMA SCREEN URINE NEGATIVE (NEGATIVE); METHADONE URINE SCREEN NEGATIVE (NEGATIVE); OPIATES URINE SCREEN NEGATIVE (NEGATIVE); PHENCYCLIDINE URINE SCREEN NEGATIVE (NEGATIVE)
[2024-11-04] MEDS ORDERED: CEFP200T14 MT (18:18)
== END 2024-11-04 06:59 | disposition home or self-care (01) ==
LOC: ER 18:05
DX: I12.0 Hypertensive chronic kidney disease with stage 5 chronic kidney disease or end stage renal disease (principal); E11.22 Type 2 diabetes mellitus with diabetic chronic kidney disease; N18.6 End stage renal disease; Z88.5 Allergy status to narcotic agent; Z79.82 Long term (current) use of aspirin; Z79.899 Other long term (current) drug therapy
CPT/HCPCS: 36415; 71045; 80048; 80305; 80307; 80320; 80329; 81003; 82140; 85025; 87077; 87186; 93005; 99285; G0480

== ENCOUNTER 2024-12-28 14:13 | Emergency (ER) | payer MEDICARE, MEDICAID ==
[~2024-12-28] VITALS: Ht 157.5 cm; Wt 66.0 kg
[~2024-12-28 14:13] MED LIST changes: +CEFP200T14 MT
[2024-12-28 14:20] VITALS: TEMP 36.7; O2SAT 98
[2024-12-28 14:45] VITALS: TEMP 98.1
[2024-12-28] MEDS: CYCLOBENZAPRINE 10MG TABLET PO ONE (14:45)
[2024-12-28] MEDS: ACETAMINOPHEN 325MG TABLET PO ONE (14:45)
[2024-12-28] MEDS ORDERED: TOPUD PO (17:51)
[2024-12-28] MEDS ORDERED: LIDO700A30 TP (17:51)
[2024-12-28 18:14] VITALS: BP 145/51; PULSE 64; RESP 12; O2SAT 100
== END 2024-12-28 18:43 | disposition home or self-care (01) ==
LOC: ER 14:13
DX: M48.54XA Collapsed vertebra, not elsewhere classified, thoracic region, initial encounter for fracture (principal); S83.92XA Sprain of unspecified site of left knee, initial encounter; S93.401A Sprain of unspecified ligament of right ankle, initial encounter; I12.0 Hypertensive chronic kidney disease with stage 5 chronic kidney disease or end stage renal disease; E11.22 Type 2 diabetes mellitus with diabetic chronic kidney disease; N18.6 End stage renal disease; M54.2 Cervicalgia; R51.9 Headache, unspecified; Z99.2 Dependence on renal dialysis; Z88.5 Allergy status to narcotic agent; Z79.82 Long term (current) use of aspirin; Z79.899 Other long term (current) drug therapy; Z86.73 Personal history of transient ischemic attack (TIA), and cerebral infarction without residual deficits; Z98.890 Other specified postprocedural states; W19.XXXA Unspecified fall, initial encounter; Y93.89 Activity, other specified; Y92.89 Other specified places as the place of occurrence of the external cause; Y99.8 Other external cause status
CPT/HCPCS: 72128; 72131; 73562; 73610; 99284

== ENCOUNTER 2025-03-04 21:51 | Inpatient (IN) | payer MEDICARE, MEDICAID ==
[~2025-03-04] VITALS: Ht 167.6 cm; Wt 80.7 kg
[~2025-03-04 21:51] MED LIST changes: -ALBU90AE INH; -AMIN30LI2 PO; +AMLO10TA80 PO; -ASPI-1497 MT; +ASPI-1497 PO; +ATOR20TA PO; -CEFP200T14 MT; -CITA10TA88 PO; -CLOP-31 MT; +CLOP-31 PO; +KEPP500 PO; +KEPPSOL PO; -LATA2.5D14 EACHEYE; +LATA2.5D7 EACHEYE; -LEVE250T2 PO; +LINA72CA PO; -LIP40 MT; +LIP40 PO; +METO5TAB2 PO; +PANT40TA51 PO; -PARI2CAP PO; -SEVE800T8 MT; +SEVE800T8 PO; +VORT10TA PO; -XALAO BOTHEYE
[2025-03-04 22:57] LABS: HEMATOCRIT. 32.9 % (36.0-48.0); HEMOGLOBIN. 10.6 g/dL (12.0-16.0); MEAN PLATELET VOLUME 9.7 fl (7.4-10.4); PLATELET 98 x1000/uL (130-400); RED BLOOD CELL COUNT 3.38 mill/uL (4.2-5.4); RED CELL DISTRIBUTION WIDTH 16.4 % (11.6-14.6)
[2025-03-04 23:09] LABS: INR 1.0
[2025-03-04 23:13] LABS: EOSINOPHILS % MANUAL 1.0 % (0.0-5.0); LYMPHOCYTES % MANUAL 11.0 % (20.0-60.0); MONOCYTES % MANUAL 16.0 % (2.0-8.0); NEUTROPHILS % MANUAL 72.0 % (45.0-75.0); PLATELET ESTIMATE NORMAL
[2025-03-04 23:15] LABS: ASPARTATE AMINOTRANSFERASE 38 IU/L (<34); BILIRUBIN DIRECT 0.3 mg/dL (<=3.0); BILIRUBIN TOTAL 0.8 mg/dL (0.1-1.0); PROTEIN TOTAL 6.8 g/dL (6.0-8.3); UREA NITROGEN BLOOD 25 mg/dL (9-23)
[2025-03-04 23:20] LABS: CREATININE 6.6 mg/dL (0.6-1.0); TROPONIN I HIGH SENSITIVITY 9260 ng/L (3.0-34)
[2025-03-04] MEDS: SODIUM CHLORIDE 0.9% (SEPSIS BOLUS) IV ONE (23:38)
[2025-03-04] MEDS: PIPERACILLIN/TAZO 3.375G/50ML 50 ML IV ONE (23:38)
[2025-03-05] VITALS (7 sets, daily range): BP systolic 133–140; BP diastolic 39–82; PULSE 63–94; RESP 16–20; TEMP 36.2–36.6; O2SAT 90–100
[2025-03-05] MEDS: VANCOMYCIN 1G PREMIX 200 ML IV ONE (00:12)
[2025-03-05] MEDS: ASPIRIN 325MG EC TABLET PO ONE (01:31)
[2025-03-05] MEDS ORDERED: DOCUSATE SODIUM 100MG CAPSULE PO PRN (01:45)
[2025-03-05] MEDS ORDERED: ONDANSETRON HCL 4MG/2ML INJ IV PRN (01:45)
[2025-03-05] MEDS ORDERED: CLONIDINE 0.1MG TABLET PO PRN (01:45)
[2025-03-05] MEDS ORDERED: DIPHENHYDRAMINE 50MG/ML VIAL IV PRN (01:45)
[2025-03-05] MEDS: DEXT 5%/0.45% NACL 1000ML 1,000 ML IV SCH (02:03)
[2025-03-05] MEDS: METHYLPREDNISOLONE SOD SUCC 40MG/ML (ACT-O-VIAL) IV SCH (03:10)
[2025-03-05 06:39] LABS: CREATINE KINASE MB FRACTION 1.9 ng/mL (0.5-3.6)
[2025-03-05 06:52] LABS: TROPONIN I HIGH SENSITIVITY 9737.0 ng/L (3.0-34)
[2025-03-05 07:11] LABS: HEPATITIS C AB NON REACTIVE (Neg) (Negative)
[2025-03-05] MEDS ORDERED: ENOXAPARIN 30MG/0.3ML SYR SUBCUT SCH (09:00)
[2025-03-05] MEDS: CLOPIDOGREL 75MG TABLET PO SCH (09:03)
[2025-03-05] MEDS: ASPIRIN 81MG EC TABLET PO SCH (09:03)
[2025-03-05] MEDS: NITROGLYCERIN OINT 1GM/INCH UDPKT TD SCH (09:04)
[2025-03-05] MEDS: AMLODIPINE 2.5MG TABLET PO SCH (09:04)
[2025-03-05] MEDS: BUDESONIDE 0.5MG/2ML NEB HHN SCH (11:35)
[2025-03-05 11:58] LABS: BG BASE EXCESS 5.5 mmol/L (-2.0-3.0); BG CARBOXYHEMOGLOBIN 1.1 % (0.5-1.5); BG DEOXYHEMOGLOBIN 0.4 % (0.0-5.0); BG FLOW(L/min) 4.00 L/min; BG FRACTION INSPIRED OXYGEN 36; BG HCO3 ACT 29.5 mmol/L (21.0-28.0); BG METHEMOGLOBIN 0.3 % (0.5-1.5); BG OXYGEN SATURATION 99.6 % (94.0-98.0); BG OXYHEMOGLOBIN 98.2 % (94.0-98.0); BG PCO2 40.8 mmHg (32.0-45.0); BG PH 7.477 (7.350-7.450); BG PO2 149.7 mmHg (83.0-108.0); BG SAMPLE SITE RIGHT RADIAL; BG TOTAL HEMOGLOBIN 11.4 g/dL (12.0-16.0); BG VENT MODE NASAL CANNULA
[2025-03-05] MEDS: VANCOMYCIN 500 MG in DEXT 5% WATER 100 ML IV SCH (16:05)
[2025-03-05 17:56] LABS: CREATINE KINASE MB FRACTION 2.0 ng/mL (0.5-3.6)
[2025-03-05 17:59] LABS: TROPONIN I HIGH SENSITIVITY 6341.0 ng/L (3.0-34)
[2025-03-05] MEDS: ATORVASTATIN CALCIUM 40MG TABLET PO SCH (21:29)
[2025-03-05] MEDS: MELATONIN 3MG TABLET PO SCH (22:06)
[2025-03-06] VITALS (15 sets, daily range): BP systolic 102–126; BP diastolic 48–68; PULSE 61–84; RESP 18–20; TEMP 35.6–36.78072; O2SAT 97–100
[2025-03-06 06:02] LABS: BASOPHILS % 0.2 % (0.0-2.0); EOSINOPHILS % 0.0 % (0.0-5.0); HEMATOCRIT. 34.3 % (36.0-48.0); HEMOGLOBIN. 11.1 g/dL (12.0-16.0); LYMPHOCYTES % 7.5 % (20.0-50.0); MEAN PLATELET VOLUME 10.4 fl (7.4-10.4); MONOCYTES % 6.4 % (2.0-8.0); NEUTROPHILS % 85.9 % (40.0-76.0); PLATELET 79 x1000/uL (130-400); RED BLOOD CELL COUNT 3.57 mill/uL (4.2-5.4); RED CELL DISTRIBUTION WIDTH 16.4 % (11.6-14.6)
[2025-03-06] MEDS: ACETAMINOPHEN 325MG TABLET PO PRN (06:16)
[2025-03-06 06:36] LABS: UREA NITROGEN BLOOD 46 mg/dL (9-23)
[2025-03-06 06:38] LABS: PHOSPHORUS 5.8 mg/dL (2.5-4.9)
[2025-03-06 06:41] LABS: TROPONIN I HIGH SENSITIVITY 4729 ng/L (3.0-34)
[2025-03-06 06:42] LABS: CREATININE 8.1 mg/dL (0.6-1.0)
[2025-03-06] MEDS: IPRATROPIUM/ALBUTEROL 0.5-3(2.5)MG/3ML NEB HHN NR (08:50)
[2025-03-06] MEDS: ENOXAPARIN 30MG/0.3ML SYR SUBCUT SCH (09:00)
[2025-03-06] MEDS: FAMOTIDINE 20MG/2ML VIAL IV SCH (09:29)
[2025-03-06] MEDS: LOSARTAN 25 MG TABLET PO SCH (13:45)
[2025-03-06] MEDS: VANCOMYCIN 750MG PREMIX 150 ML IV SCH (15:18)
[2025-03-06] MEDS: CARVEDILOL 3.125 MG TABLET PO SCH (21:00)
[2025-03-07] VITALS: BP 133/66; PULSE 75; RESP 18; TEMP 36.6; O2SAT 98
[2025-03-07 04:11] VITALS: BP 127/70; PULSE 75; RESP 18; TEMP 36.7; O2SAT 99
[2025-03-07 08:00] VITALS: BP 145/46; PULSE 92; RESP 20; TEMP 36.1; O2SAT 98
[2025-03-07] MEDS: IPRATROPIUM/ALBUTEROL 0.5-3(2.5)MG/3ML NEB HHN PRN (10:28)
[2025-03-07 12:00] VITALS: BP 140/50; PULSE 91; RESP 20; TEMP 36.2; O2SAT 99
[2025-03-07 16:00] VITALS: BP 110/90; PULSE 73; RESP 18; TEMP 36.3; O2SAT 97
[2025-03-07 20:09] VITALS: BP 138/76; PULSE 78; RESP 20; TEMP 37.1; O2SAT 98
[2025-03-07] MEDS: LATANOPROST 0.005% OPHTH DROPS 2.5ML EACHEYE SCH (21:00)
[2025-03-08] VITALS (13 sets, daily range): BP systolic 114–144; BP diastolic 63–78; PULSE 63–78; RESP 18–20; TEMP 36.1–36.6; O2SAT 68–100
[2025-03-08] MEDS: LEVETIRACETAM 250MG TABLET PO SCH (10:15)
[2025-03-08] MEDS: LEVOTHYROXINE SODIUM 50MCG TABLET PO SCH (10:20)
[2025-03-08] MEDS: GALANTAMINE HBR 8MG ER CAPSULE 24HR PO SCH (11:10)
[2025-03-08 17:46] LABS: HEMATOCRIT. 33.8 % (36.0-48.0); HEMOGLOBIN. 10.7 g/dL (12.0-16.0); MEAN PLATELET VOLUME 10.0 fl (7.4-10.4); PLATELET 98 x1000/uL (130-400); RED BLOOD CELL COUNT 3.46 mill/uL (4.2-5.4); RED CELL DISTRIBUTION WIDTH 16.1 % (11.6-14.6)
[2025-03-08 17:49] LABS: UREA NITROGEN BLOOD 35.0 mg/dL (9-23)
[2025-03-08 18:06] LABS: EOSINOPHILS % MANUAL 1.0 % (0.0-5.0); LYMPHOCYTES % MANUAL 31.0 % (20.0-60.0); MONOCYTES % MANUAL 13.0 % (2.0-8.0); NEUTROPHILS % MANUAL 55.0 % (45.0-75.0); PLATELET ESTIMATE DECREASED
[2025-03-08 18:12] LABS: CREATININE 7.4 mg/dL (0.6-1.0); TROPONIN I HIGH SENSITIVITY 3420.0 ng/L (3.0-34)
[2025-03-08] MEDS ORDERED: LATANOPROST 0.005% OPHTH DROPS 2.5ML BOTHEYE SCH (21:00)
[2025-03-09] VITALS (7 sets, daily range): BP systolic 130–147; BP diastolic 59–79; PULSE 63–75; RESP 18–20; TEMP 35.8–36.4; O2SAT 94–100
[2025-03-10] VITALS (11 sets, daily range): BP systolic 105–147; BP diastolic 57–77; PULSE 62–75; RESP 15–20; TEMP 36–36.6696; O2SAT 97–99
== END 2025-03-10 20:04 | DRG 871 ==
LOC: ER 21:51 → 7WST 03-05 01:15 → EDBEDREQ 03-05 01:40 → EDBEDREQTM 03-05 01:40 → EDBEDREQDT 03-05 01:40 → EDBEDREQSVC 03-05 01:40 → EDBEDREQTM 03-05 03:13 → EDBEDREQSVC 03-05 03:13 → ENRESERV 03-05 04:27
PROVIDERS: ADMIT Internal Medicine Nephrology; ATTEND Internal Medicine Nephrology
PROC: 5A1D70Z Performance of Urinary Filtration, Intermittent, Less than 6 Hours Per Day (ICD-10-PCS; principal; 2025-03-06)
PROC: 5A1D70Z Performance of Urinary Filtration, Intermittent, Less than 6 Hours Per Day (ICD-10-PCS; 2025-03-08)
PROC: 5A1D70Z Performance of Urinary Filtration, Intermittent, Less than 6 Hours Per Day (ICD-10-PCS; 2025-03-10)
DX: A41.9 Sepsis, unspecified organism (principal); I21.4 Non-ST elevation (NSTEMI) myocardial infarction; J96.01 Acute respiratory failure with hypoxia; L89.153 Pressure ulcer of sacral region, stage 3; N18.6 End stage renal disease; J18.9 Pneumonia, unspecified organism; I13.2 Hypertensive heart and chronic kidney disease with heart failure and with stage 5 chronic kidney disease, or end stage renal disease; F02.818 Dementia in other diseases classified elsewhere, unspecified severity, with other behavioral disturbance; G93.40 Encephalopathy, unspecified; I42.9 Cardiomyopathy, unspecified; G82.20 Paraplegia, unspecified; J44.0 Chronic obstructive pulmonary disease with (acute) lower respiratory infection; Z20.822 Contact with and (suspected) exposure to COVID-19; E11.22 Type 2 diabetes mellitus with diabetic chronic kidney disease; D63.1 Anemia in chronic kidney disease; I25.10 Atherosclerotic heart disease of native coronary artery without angina pectoris; E87.5 Hyperkalemia; G47.33 Obstructive sleep apnea (adult) (pediatric); I49.5 Sick sinus syndrome; G40.909 Epilepsy, unspecified, not intractable, without status epilepticus; E03.9 Hypothyroidism, unspecified; Z99.2 Dependence on renal dialysis; D69.6 Thrombocytopenia, unspecified; I45.10 Unspecified right bundle-branch block; M10.9 Gout, unspecified; M48.061 Spinal stenosis, lumbar region without neurogenic claudication; M54.16 Radiculopathy, lumbar region; I07.1 Rheumatic tricuspid insufficiency; E78.5 Hyperlipidemia, unspecified; G30.9 Alzheimer's disease, unspecified; I34.81 Nonrheumatic mitral (valve) annulus calcification; I50.9 Heart failure, unspecified; Z95.0 Presence of cardiac pacemaker; Z95.5 Presence of coronary angioplasty implant and graft; Z95.2 Presence of prosthetic heart valve; Z85.3 Personal history of malignant neoplasm of breast; Z86.73 Personal history of transient ischemic attack (TIA), and cerebral infarction without residual deficits; Z79.02 Long term (current) use of antithrombotics/antiplatelets; Z79.811 Long term (current) use of aromatase inhibitors; Z79.82 Long term (current) use of aspirin; Z79.899 Other long term (current) drug therapy; Z88.5 Allergy status to narcotic agent; Z90.710 Acquired absence of both cervix and uterus
CPT/HCPCS: 36415; 36600; 71045; 80048; 80076; 80202; 82375; 82550; 82553; 82805; 83605; 83735; 83880; 84100; 84145; 84484; 85025; 86705; 87340; 87426; 90935; 93005; 93306; 93970; 94070; 94640; 94664; 96368; 99285; J1308; J1650; J2543; J2919; J3373; J7030; J7060; J7626